=== PATIENT | female | born 1960 | race African-American/Black ===

== ENCOUNTER 2016-08-10 08:27 | Emergency (ER) | payer OTHER ==
--- NOTE | 2016-08-10 08:52 | ER Document Report ---
ED General - General Chief Complaint: Rash Stated Complaint: POSSIBLE RASH Time Seen by Provider: 08/10/16 08:43 Mode of Arrival: Ambulatory Information source: Patient Notes: 56-year-old diabetic female presents with 2 separate rashes. Patient notes that she has had a rash under her breasts and in her inguinal region of two- week duration is itchy. Patient notes now she is having generalized itchy rash as well. One under her breasts she notes is red TRAVEL OUTSIDE OF THE [place] IN LAST 30 DAYS: No - HPI Onset: Other - 2 week duration Onset/Duration: Persistent Quality of pain: No pain Severity: Mild Pain Level: Denies Associated symptoms: Other Exacerbated by: Denies Relieved by: Denies Similar symptoms previously: No Recently seen / treated by doctor: No - Related Data Allergies/Adverse Reactions: No Known Allergies Allergy (Verified 08/10/16 08:36) Past Medical History - Social History Smoking Status: Never Smoker Cigarette use (# per day): No Chew tobacco use (# tins/day): No Smoking Education Provided: No Family History: Malignancy Patient has suicidal ideation: No Patient has homicidal ideation: No - Past Medical History Cardiac Medical History: Reports: Hx Congestive Heart Failure, Hx Hypercholesterolemia, Hx Hypertension Pulmonary Medical History: Reports: Hx Asthma, Hx Bronchitis, Hx COPD, Hx Sleep Apnea Denies: Hx Tuberculosis Endocrine Medical History: Reports: Hx Diabetes Mellitus Type 2 Renal/ Medical History: Denies: Hx Peritoneal Dialysis GI Medical History: Reports: Hx Gastroesophageal Reflux Disease, Hx Irritable Bowel Psychiatric Medical History: Reports: Hx Depression Past Surgical History: Reports: Hx Hysterectomy, Hx Orthopedic Surgery - Left knee repair - Immunizations Hx Diphtheria, Pertussis, Tetanus Vaccination: No Hx Pneumococcal Vaccination: 03/28/12 Review of Systems - Review of Systems Notes: PHYSICAL EXAMINATION: GENERAL: Well-appearing, well-nourished and in no acute distress. HEAD: Atraumatic, normocephalic. EYES: Pupils equal round and reactive to light, extraocular movements intact, conjunctiva are normal. ENT: Nares patent, oropharynx clear without exudates. Moist mucous membranes. NECK: Normal range of motion, supple without lymphadenopathy LUNGS: Breath sounds clear to auscultation bilaterally and equal. No wheezes rales or rhonchi. HEART: Regular rate and rhythm without murmurs ABDOMEN: Soft, nontender, nondistended abdomen. No guarding, no rebound. No masses appreciated. Female : deferred Musculoskeletal: Normal range of motion, no pitting or edema. No cyanosis. NEUROLOGICAL: Cranial nerves grossly intact. Normal speech, normal gait. Normal sensory, motor exams PSYCH: Normal mood, normal affect. SKIN: Candidal rash under the breasts, no inguinal rash noted generalized intermittent urticaria on arms Physical Exam - Vital signs Vitals: Temp Pulse Resp BP Pulse Ox 98.5 F 97 20 107/78 97 08/10/16 08:38 08/10/16 08:38 08/10/16 08:38 08/10/16 08:38 08/10/16 08:38 Course - Re-evaluation Re-evalutation: 08/10/16 10:03 Patient will be started on Benadryl and nystatin and is otherwise well- appearing no distress given follow with primary care physician and close check on her blood sugar Patient notes blood sugar prior to arrival was 125 After performing a Medical Screening Examination, I estimate there is LOW risk for any life threatening rash. At this time the patient looks extremely well and there are no signs of systemic infection, however this may change at any time and the rash may change. I have reevaluated this patient multiple times and no significant life threatening changes are noted. The patient and I have discussed the diagnosis and risks, and we agree with discharging home with close follow-up with the understanding that symptoms and presentations can change. We also discussed returning to the Emergency Department immediately if new or worsening symptoms occur. We have discussed the symptoms which are most concerning (e.g., changing or worsening pain, fever, numbness, weakness, cool or painful digits) that necessitate immediate return. - Vital Signs Vital signs: Temp Pulse Resp BP Pulse Ox 98.5 F 97 20 107/78 97 08/10/16 08:38 08/10/16 08:38 08/10/16 08:38 08/10/16 08:38 08/10/16 08:38 Discharge - Discharge Clinical Impression: Yasemin albicans infection Diabetes Qualifiers: Diabetes mellitus type: type 1 Diabetes mellitus complication status: with unspecified complications Qualified Code(s): E10.8 - Type 1 diabetes mellitus with unspecified complications Allergic reaction Qualifiers: Encounter type: initial encounter Qualified Code(s): T78.40XA - Allergy, unspecified, initial encounter Condition: Stable Disposition: HOME, SELF-CARE Prescriptions: Diphenhydramine HCl [Benadryl 50 mg Capsule] 50 mg PO Q6 #20 capsule Nystatin 1 inch TP BID 14 Days Referrals: SHADIA LEUNG MD [Primary Care Provider] - Follow up as needed
[2016-08-10 09:00] VITALS: BP 107/78
== END 2016-08-10 09:00 | disposition home or self-care (01) ==
LOC: ER 08:27
DX: T78.40XA Allergy, unspecified, initial encounter (principal); B37.9 Candidiasis, unspecified; E10.8 Type 1 diabetes mellitus with unspecified complications; R21 Rash and other nonspecific skin eruption
CPT/HCPCS: 99282

== ENCOUNTER → 2016-09-21 | Outpatient (CLI) | payer OTHER ==
[2016-09-21 09:44] LABS: ABSOLUTE BASOPHILS # (AUTO) 0.1 10^3/uL (0.0-0.2); ABSOLUTE EOSINOPHILS # (AUTO) 0.3 10^3/uL (0.0-0.6); ABSOLUTE LYMPHOCYTES (AUTO) 2.4 10^3/uL (0.5-4.7); ABSOLUTE MONOCYTES (AUTO) 0.6 10^3/uL (0.1-1.4); ABSOLUTE NEUT (AUTO) 3.9 10^3/uL (1.7-8.2); BASOPHILS % (AUTO) 1.1 % (0-2); EOSINOPHILS % (AUTO) 3.7 % (0-6); HEMATOCRIT 31.6 % (36.0-47.0); HEMOGLOBIN 9.8 g/dL (12.0-15.5); HGB HCT DIFFERENCE -2.2; LYMPHOCYTES % (AUTO) 33.5 % (13-45); MEAN CORPUSCULAR HEMOGLOBIN 21.8 pg (27.0-33.4); MEAN CORPUSCULAR HGB CONC 30.9 g/dL (32.0-36.0); MEAN CORPUSCULAR VOLUME 71 fl (80-97); MONOCYTES % (AUTO) 7.9 % (3-13); RED BLOOD COUNT 4.47 10^6/uL (3.72-5.28); RED CELL DISTRIBUTION WIDTH 14.2 % (11.5-14.0); SEGMENTED NEUTROPHILS % (AUTO) 53.8 % (42-78); WHITE BLOOD COUNT 7.2 10^3/uL (4.0-10.5)
[2016-09-21 10:05] LABS: ALANINE AMINOTRANSFERASE 51 U/L (9-52); ALBUMIN 4.1 g/dL (3.5-5.0); ALKALINE PHOSPHATASE 68 U/L (38-126); ANION GAP 13 (5-19); ASPARTATE AMINO TRANSFERASE 65 U/L (14-36); BILIRUBIN,DIRECT 0.3 mg/dL (0.0-0.4); BILIRUBIN,TOTAL 0.5 mg/dL (0.2-1.3); BLOOD UREA NITROGEN 14 mg/dL (7-20); CALCIUM 8.9 mg/dL (8.4-10.2); CARBON DIOXIDE 25 mmol/L (22-30); CHLORIDE 103 mmol/L (98-107); CHOLESTEROL 146.48 mg/dL (0-200); CREATININE RESULT 1.13 mg/dL (0.52-1.25); Direct HDL 43 mg/dL (>40); GLUCOSE 201 mg/dL (75-110); POTASSIUM 5.4 mmol/L (3.6-5.0); SODIUM 140.5 mmol/L (137-145); TRIGLYCERIDES 217 mg/dL (<150)
[2016-09-21 10:15] LABS: DIRECT LDL 76 mg/dL (<100)
[2016-09-21 10:18] LABS: VLDL CHOLESTEROL 43.4 mg/dL (10-31)
== END ==
LOC: LAB 09:03
PROVIDERS: ATTEND Internal Medicine
DX: E11.65 Type 2 diabetes mellitus with hyperglycemia (principal); I12.9 Hypertensive chronic kidney disease with stage 1 through stage 4 chronic kidney disease, or unspecified chronic kidney disease; N18.9 Chronic kidney disease, unspecified; E78.5 Hyperlipidemia, unspecified
CPT/HCPCS: 36415; 80053; 80061; 83036; 84443; 85025

== ENCOUNTER 2016-10-25 08:09 | Emergency (ER) | payer OTHER ==
[2016-10-25] MEDS ORDERED: IPRATROPIUM/ALBUTEROL 0.5-2.5 MG/3 ML AMPUL NEB ONE ×3 (08:34→09:04)
[2016-10-25] MEDS ORDERED: METHYLPREDNISOLONE INJ 125 MG/2 ML SDV IV ONE (08:35)
--- NOTE | 2016-10-25 08:36 | ER Document Report ---
ED General - General Stated Complaint: SHORT OF BREATH Time Seen by Provider: 10/25/16 08:20 Mode of Arrival: Ambulatory Information source: Patient Notes: 56-year-old female history of asthma CHF presents with complaints of shortness of breath. Patient notes that symptoms started last night. Patient has been wheezing coughing productive. Patient noted to be febrile today. Patient was given Tylenol prior to arrival by EMS. TRAVEL OUTSIDE OF THE [place] IN LAST 30 DAYS: No - HPI Onset: Yesterday Onset/Duration: Sudden Quality of pain: Achy Severity: Mild Pain Level: 1 Associated symptoms: Productive cough, Shortness of breath Exacerbated by: Denies, Coughing Relieved by: Denies Similar symptoms previously: No Recently seen / treated by doctor: No - Related Data Allergies/Adverse Reactions: No Known Allergies Allergy (Verified 08/10/16 08:36) Past Medical History - Social History Smoking Status: Never Smoker Cigarette use (# per day): No Chew tobacco use (# tins/day): No Smoking Education Provided: No Family History: Malignancy - Past Medical History Cardiac Medical History: Reports: Hx Congestive Heart Failure, Hx Hypercholesterolemia, Hx Hypertension Pulmonary Medical History: Reports: Hx Asthma, Hx Bronchitis, Hx COPD, Hx Sleep Apnea Denies: Hx Tuberculosis Endocrine Medical History: Reports: Hx Diabetes Mellitus Type 2 Renal/ Medical History: Denies: Hx Peritoneal Dialysis GI Medical History: Reports: Hx Gastroesophageal Reflux Disease, Hx Irritable Bowel Psychiatric Medical History: Reports: Hx Depression Past Surgical History: Reports: Hx Hysterectomy, Hx Orthopedic Surgery - Left knee repair - Immunizations Hx Diphtheria, Pertussis, Tetanus Vaccination: No Hx Pneumococcal Vaccination: 03/28/12 Review of Systems - Review of Systems Notes: REVIEW OF SYSTEMS: CONSTITUTIONAL : Denies fever, chills, or sweats. Denies recent illness. EENT: Denies eye, ear, throat, or mouth pain or symptoms. Denies nasal or sinus congestion or discharge. Denies throat, tongue, or mouth swelling or difficulty swallowing. CARDIOVASCULAR: Denies chest pain. Denies palpitations or racing or irregular heart beat. Denies ankle edema. RESPIRATORY: Admits to cough shortness of breath GASTROINTESTINAL: Denies abdominal pain or distention. Denies nausea, vomiting , or diarrhea. Denies blood in vomitus, stools, or per rectum. Denies black, tarry stools. Denies constipation. GENITOURINARY: Denies difficulty urinating, painful urination, burning, frequency, blood in urine, or discharge. FEMALE GENITOURINARY: Denies vaginal bleeding, heavy or abnormal periods, irregular periods. Denies vaginal discharge or odor. MUSCULOSKELETAL: Denies back or neck pain or stiffness. Denies joint pain or swelling. SKIN: Denies rash, lesions or sores. HEMATOLOGIC : Denies easy bruising or bleeding. LYMPHATIC: Denies swollen, enlarged glands. NEUROLOGICAL: Denies confusion or altered mental status. Denies passing out or loss of consciousness. Denies dizziness or lightheadedness. Denies headache. Denies weakness or paralysis or loss of use of either side. Denies problems with gait or speech. Denies sensory loss, numbness, or tingling. Denies seizures. PSYCHIATRIC: Denies anxiety or stress. Denies depression, suicidal ideation, or homicidal ideation. ALL OTHER SYSTEMS REVIEWED AND NEGATIVE. PHYSICAL EXAMINATION: GENERAL: Well-appearing, well-nourished and in no acute distress. HEAD: Atraumatic, normocephalic. EYES: Pupils equal round and reactive to light, extraocular movements intact, conjunctiva are normal. ENT: Nares patent, oropharynx clear without exudates. Moist mucous membranes. NECK: Normal range of motion, supple without lymphadenopathy LUNGS: Breath sounds clear to auscultation bilaterally and equal. No wheezes rales or rhonchi. HEART: Coarse rhonchi wheezing all throughout ABDOMEN: Soft, nontender, nondistended abdomen. No guarding, no rebound. No masses appreciated. Female : deferred Musculoskeletal: Normal range of motion, no pitting or edema. No cyanosis. NEUROLOGICAL: Cranial nerves grossly intact. Normal speech, normal gait. Normal sensory, motor exams PSYCH: Normal mood, normal affect. SKIN: Warm, Dry, normal turgor, no rashes or lesions noted. Dictation was performed using [employer] voice recognition software Physical Exam - Vital signs Vitals: Temp Resp BP Pulse Ox 98.6 F 19 141/71 H 97 10/25/16 08:18 10/25/16 08:18 10/25/16 08:18 10/25/16 08:18 Course - Re-evaluation Re-evalutation: 10/25/16 08:37 Physical examination is concerning for pneumonia, lab work imaging is pending at this time patient has been placed on oxygen will be given duo nebs 10/25/16 10:53 Patient even though had a fever white count was tachycardic and hypoxic initially has done impressively well after 3 duo nebs. My initial impression was that patient would have to be admitted however she was ambulated around the emergency department twice and was satting 100% on her baseline 2 L in no distress. I had a long conversation with both her and and will discharge with very close follow-up After performing a Medical Screening Examination, I estimate there is LOW risk for ACUTE CORONARY SYNDROME, RESPIRATORY FAILURE, SEPSIS OR MENINGITIS, thus I consider the discharge disposition reasonable. I have reevaluated this patient multiple times and no significant life threatening changes are noted. The patient and I have discussed the diagnosis and risks, and we agree with discharging home with close follow-up. We also discussed returning to the Emergency Department immediately if new or worsening symptoms occur. We have discussed the symptoms which are most concerning (e.g., changing or worsening pain, trouble swallowing or breathing, neck stiffness, fever) that necessitate immediate return. - Vital Signs Vital signs: Temp Pulse Resp BP Pulse Ox 98.6 F 19 141/71 H 97 10/25/16 08:18 10/25/16 08:18 10/25/16 08:18 10/25/16 08:18 - Laboratory Result Diagrams: 10/25/16 08:30 10/25/16 08:30 Laboratory results interpreted by me: 10/25/16 10/25/16 08:30 08:30 WBC 14.5 H Hgb 10.0 L Hct 28.4 L MCV 71 L MCH 24.7 L Plt Count 131 L Seg Neutrophils % 79.7 H Lymphocytes % 11.0 L Absolute Neutrophils 11.6 H Sodium 135.1 L Potassium 5.4 H Chloride 96 L Est GFR (Non-Af Amer) 52 L Glucose 234 H AST 38 H Creatine Kinase 397 H - Diagnostic Test Radiology reviewed: Image reviewed, Reports reviewed - EKG Interpretation by Me EKG shows normal: Sinus rhythm, Gervais, Intervals, QRS Complexes Rate: Tachycardia Discharge - Discharge Clinical Impression: Tachycardia Fever Qualifiers: Fever type: unspecified Qualified Code(s): R50.9 - Fever, unspecified Pneumonia Qualifiers: Pneumonia type: due to unspecified organism Laterality: bilateral Lung location : unspecified part of lung Qualified Code(s): J18.9 - Pneumonia, unspecified organism Chronic obstructive lung disease Qualifiers: COPD type: unspecified COPD Qualified Code(s): J44.9 - Chronic obstructive pulmonary disease, unspecified Condition: Stable Disposition: HOME, SELF-CARE Instructions: Pneumonia ([facility]) Additional Instructions: Follow up with your physician tomorrow for further care or return to the ED IMMEDIATELY if symptoms worsen or new concerns occur. If you cannot afford to follow up with your primary care physician a list of low cost clinics have been provided at the end of your discharge papers as well. Prescriptions: Levofloxacin [Levaquin 750 mg Tablet] 750 mg PO DAILY #5 tablet Prednisone [Deltasone 20 mg Tablet] 3 tab PO DAILY 5 Days
[2016-10-25 08:52] VITALS: BP 141/71
[2016-10-25 08:53] LABS: ABSOLUTE BASOPHILS # (AUTO) 0.1 10^3/uL (0.0-0.2); ABSOLUTE EOSINOPHILS # (AUTO) 0.2 10^3/uL (0.0-0.6); ABSOLUTE LYMPHOCYTES (AUTO) 1.6 10^3/uL (0.5-4.7); ABSOLUTE NEUT (AUTO) 11.6 10^3/uL (1.7-8.2); BASOPHILS % (AUTO) 0.8 % (0-2); EOSINOPHILS % (AUTO) 1.4 % (0-6); HEMATOCRIT 28.4 % (36.0-47.0); HGB HCT DIFFERENCE 1.6; MEAN CORPUSCULAR HEMOGLOBIN 24.7 pg (27.0-33.4); MEAN CORPUSCULAR HGB CONC 35.1 g/dL (32.0-36.0); MEAN CORPUSCULAR VOLUME 71 fl (80-97); MONOCYTES % (AUTO) 7.1 % (3-13); RED BLOOD COUNT 4.02 10^6/uL (3.72-5.28); SEGMENTED NEUTROPHILS % (AUTO) 79.7 % (42-78); WHITE BLOOD COUNT 14.5 10^3/uL (4.0-10.5)
--- NOTE | 2016-10-25 08:56 | RADIOLOGY REPORT (SQ) ---
EXAM DESCRIPTION: CHEST SINGLE VIEW COMPLETED DATE/TIME: 10/25/2016 8:41 am REASON FOR STUDY: cough productuve COMPARISON: 07/03/2015 NUMBER OF VIEWS: One view. TECHNIQUE: Single frontal radiographic view of the chest acquired. LIMITATIONS: Patient body habitus. FINDINGS: LUNGS AND PLEURA: No opacities, masses or pneumothorax. No pleural effusion. MEDIASTINUM AND HILAR STRUCTURES: No masses. Contour normal. HEART AND VASCULAR STRUCTURES: Heart normal in size. Normal vasculature. BONES: No acute findings. HARDWARE: None in the chest. OTHER: No other significant finding. IMPRESSION: NO SIGNIFICANT RADIOGRAPHIC FINDING IN THE CHEST. TECHNICAL DOCUMENTATION: JOB ID: [id number]- All Rights Reserved
[2016-10-25 09:04] LABS: ALANINE AMINOTRANSFERASE 36 U/L (9-52); ALBUMIN 4.4 g/dL (3.5-5.0); ALKALINE PHOSPHATASE 79 U/L (38-126); ANION GAP 13 (5-19); ASPARTATE AMINO TRANSFERASE 38 U/L (14-36); BILIRUBIN,DIRECT 0.4 mg/dL (0.0-0.4); BILIRUBIN,TOTAL 0.5 mg/dL (0.2-1.3); BLOOD UREA NITROGEN 16 mg/dL (7-20); CALCIUM 8.9 mg/dL (8.4-10.2); CARBON DIOXIDE 26 mmol/L (22-30); CHLORIDE 96 mmol/L (98-107); CREATINE KINASE 397 U/L (30-135); CREATININE RESULT 1.09 mg/dL (0.52-1.25); GLUCOSE 234 mg/dL (75-110); POTASSIUM 5.4 mmol/L (3.6-5.0); SODIUM 135.1 mmol/L (137-145); TOTAL PROTEIN 7.4 g/dL (6.3-8.2)
[2016-10-25 09:16] LABS: CREATINE KINASE MB 1.55 ng/mL (<4.55)
[2016-10-25 09:19] LABS: TROPONIN I < 0.012 ng/mL
[2016-10-25 10:58] LABS: APPEARANCE,URINE CLEAR; BILIRUBIN,URINE NEGATIVE (NEGATIVE); GLUCOSE, URINE >=500 mg/dL (NEGATIVE); KETONES,URINE NEGATIVE (NEGATIVE); LEUKOCYTE ESTERASE,URINE NEGATIVE (NEGATIVE); NITRITE,URINE NEGATIVE (NEGATIVE); PROTEIN,URINE NEGATIVE (NEGATIVE); URINE SPECIFIC GRAVITY 1.013; UROBILINOGEN,URINE NEGATIVE mg/dL (<2.0)
--- NOTE | 2016-10-25 13:39 | EKG REPORT ---
SEVERITY:- BORDERLINE ECG - SINUS RHYTHM CONSIDER ANTERIOR INFARCT BORDERLINE T WAVE ABNORMALITIES : Confirmed by: Chaitanya Lawrence MD 25-Oct-2016 13:39:01
== END 2016-10-25 11:09 | disposition home or self-care (01) ==
LOC: ER 08:09
DX: J18.9 Pneumonia, unspecified organism (principal); R00.0 Tachycardia, unspecified; J44.9 Chronic obstructive pulmonary disease, unspecified; R50.9 Fever, unspecified; R06.02 Shortness of breath; I50.9 Heart failure, unspecified; R06.2 Wheezing; R05 Cough
CPT/HCPCS: 93005; 94640 ×2; 99285; 96374; 36415; 87040; 82553; 82550; 85025; 87077; 80053; 81001; 84484; 83880; 71010; 93010; J2930; J7620; 87186

== ENCOUNTER → 2017-07-22 | Outpatient (CLI) | payer OTHER ==
[2017-07-22 13:55] LABS: ABSOLUTE EOSINOPHILS # (AUTO) 0.1 10^3/uL (0.0-0.6); ABSOLUTE LYMPHOCYTES (AUTO) 1.6 10^3/uL (0.5-4.7); ABSOLUTE MONOCYTES (AUTO) 0.7 10^3/uL (0.1-1.4); ABSOLUTE NEUT (AUTO) 2.7 10^3/uL (1.7-8.2); BASOPHILS % (AUTO) 0.6 % (0-2); EOSINOPHILS % (AUTO) 2.3 % (0-6); HEMATOCRIT 30.2 % (36.0-47.0); HEMOGLOBIN 9.6 g/dL (12.0-15.5); LYMPHOCYTES % (AUTO) 31.7 % (13-45); MEAN CORPUSCULAR HGB CONC 31.8 g/dL (32.0-36.0); MEAN CORPUSCULAR VOLUME 69 fl (80-97); MONOCYTES % (AUTO) 12.6 % (3-13); PLATELET COUNT 167 10^3/uL (150-450); RED BLOOD COUNT 4.37 10^6/uL (3.72-5.28); RED CELL DISTRIBUTION WIDTH 14.3 % (11.5-14.0); RETICULOCYTE COUNT (AUTO) 1.82 % (0.66-2.85); SEGMENTED NEUTROPHILS % (AUTO) 52.8 % (42-78); TOTAL CELLS COUNTED % (AUTO) 100 %; WHITE BLOOD COUNT 5.2 10^3/uL (4.0-10.5)
[2017-07-22 14:07] LABS: ALANINE AMINOTRANSFERASE 44 U/L (9-52); ALBUMIN 4.3 g/dL (3.5-5.0); ALKALINE PHOSPHATASE 72 U/L (38-126); ASPARTATE AMINO TRANSFERASE 50 U/L (14-36); BILIRUBIN,DIRECT 0.3 mg/dL (0.0-0.4); BILIRUBIN,TOTAL 0.3 mg/dL (0.2-1.3); BLOOD UREA NITROGEN 16 mg/dL (7-20); CALCIUM 9.4 mg/dL (8.4-10.2); CARBON DIOXIDE 31 mmol/L (22-30); CHLORIDE 102 mmol/L (98-107); CHOLESTEROL 210.06 mg/dL (0-200); GLUCOSE 100 mg/dL (75-110); IRON(TIBC) 46.4 ug/dL (37-170); TOTAL PROTEIN 7.3 g/dL (6.3-8.2); TRIGLYCERIDES 209 mg/dL (<150)
[2017-07-22 14:08] LABS: POTASSIUM 4.5 mmol/L (3.6-5.0); VLDL CHOLESTEROL 41.8 mg/dL (10-31)
[2017-07-22 14:09] LABS: ANION GAP 11 (5-19); SODIUM 144.4 mmol/L (137-145)
[2017-07-22 14:23] LABS: DIRECT LDL 125 mg/dL (<100)
== END ==
LOC: OD 12:10
PROVIDERS: ATTEND Internal Medicine
DX: E11.9 Type 2 diabetes mellitus without complications (principal); I10 Essential (primary) hypertension; D64.9 Anemia, unspecified; R53.83 Other fatigue
CPT/HCPCS: 36415; 80053; 80061; 82607; 82728; 82746; 83036; 83540; 83550; 84443; 85025; 85045

== ENCOUNTER → 2018-03-08 | Outpatient (CLI) | payer OTHER ==
[2018-03-08 09:24] LABS: ABSOLUTE BASOPHILS # (AUTO) 0.1 10^3/uL (0.0-0.2); ABSOLUTE EOSINOPHILS # (AUTO) 0.3 10^3/uL (0.0-0.6); ABSOLUTE LYMPHOCYTES (AUTO) 2.5 10^3/uL (0.5-4.7); ABSOLUTE MONOCYTES (AUTO) 0.5 10^3/uL (0.1-1.4); ABSOLUTE NEUT (AUTO) 3.1 10^3/uL (1.7-8.2); BASOPHILS % (AUTO) 0.9 % (0-2); EOSINOPHILS % (AUTO) 4.6 % (0-6); HEMATOCRIT 30.7 % (36.0-47.0); HEMOGLOBIN 9.7 g/dL (12.0-15.5); LYMPHOCYTES % (AUTO) 38.9 % (13-45); MEAN CORPUSCULAR HEMOGLOBIN 22.5 pg (27.0-33.4); MEAN CORPUSCULAR HGB CONC 31.6 g/dL (32.0-36.0); MEAN CORPUSCULAR VOLUME 71 fl (80-97); MONOCYTES % (AUTO) 7.2 % (3-13); PLATELET COUNT 196 10^3/uL (150-450); RED BLOOD COUNT 4.31 10^6/uL (3.72-5.28); SEGMENTED NEUTROPHILS % (AUTO) 48.4 % (42-78); TOTAL CELLS COUNTED % (AUTO) 100 %; WHITE BLOOD COUNT 6.4 10^3/uL (4.0-10.5)
[2018-03-08 09:51] LABS: ALANINE AMINOTRANSFERASE 28 U/L (9-52); ALBUMIN 4.1 g/dL (3.5-5.0); ALKALINE PHOSPHATASE 77 U/L (38-126); ANION GAP 10 (5-19); ASPARTATE AMINO TRANSFERASE 36 U/L (14-36); BILIRUBIN,DIRECT 0.3 mg/dL (0.0-0.4); BILIRUBIN,TOTAL 0.3 mg/dL (0.2-1.3); BLOOD UREA NITROGEN 16 mg/dL (7-20); CALCIUM 9.4 mg/dL (8.4-10.2); CARBON DIOXIDE 33 mmol/L (22-30); CHLORIDE 99 mmol/L (98-107); CHOLESTEROL 135.04 mg/dL (0-200); GLUCOSE 152 mg/dL (75-110); SODIUM 141.7 mmol/L (137-145); TOTAL PROTEIN 7.1 g/dL (6.3-8.2); TRIGLYCERIDES 188 mg/dL (<150)
[2018-03-08 10:01] LABS: DIRECT LDL 80 mg/dL (<100)
[2018-03-08 10:07] LABS: VLDL CHOLESTEROL 37.6 mg/dL (10-31)
== END ==
LOC: LAB 08:38
PROVIDERS: ATTEND Internal Medicine
DX: E11.8 Type 2 diabetes mellitus with unspecified complications (principal); I10 Essential (primary) hypertension; E78.5 Hyperlipidemia, unspecified; R53.83 Other fatigue
CPT/HCPCS: 36415; 80053; 80061; 83735; 84443; 85025

== ENCOUNTER 2018-08-26 10:27 | Emergency (ER) | payer OTHER ==
[2018-08-26 10:36] VITALS: BP 142/54
--- NOTE | 2018-08-26 10:54 | ER Document Report ---
HPI - HPI Patient complains to provider of: rash Time Seen by Provider: 08/26/18 10:38 Pain Level: 1 Context: 58-year-old female with diabetes presents emergency department for rash x1 month. She saw her label printing machinist at the beginning of the month for a rash on her face and neck and was advised to take [id number] creams. She said that she has been itching and got to the point where she decided to seek further care. She says the rashes around her neck and kind of splotchy on her face. She denies shortness of breath, hives, tightening or constriction of her airway, or any anaphylactic type symptoms. She denies fevers or chills, she denies rash on her palms or soles. No other complaints. - CONSTITUTIONAL Constitutional: DENIES: Fever, Chills - REPRODUCTIVE Reproductive: DENIES: : Past Medical History - Social History Smoking Status: Unknown if Ever Smoked Family History: Malignancy Patient has suicidal ideation: No Patient has homicidal ideation: No - Past Medical History Cardiac Medical History: Reports: Hx Congestive Heart Failure, Hx Hypercholesterolemia, Hx Hypertension Pulmonary Medical History: Reports: Hx Asthma, Hx Bronchitis, Hx COPD, Hx Sleep Apnea Denies: Hx Tuberculosis Endocrine Medical History: Reports: Hx Diabetes Mellitus Type 2 Renal/ Medical History: Denies: Hx Peritoneal Dialysis GI Medical History: Reports: Hx Gastroesophageal Reflux Disease, Hx Irritable Bowel Psychiatric Medical History: Reports: Hx Depression Past Surgical History: Reports: Hx Hysterectomy, Hx Orthopedic Surgery - Left knee repair - Immunizations Hx Diphtheria, Pertussis, Tetanus Vaccination: No Hx Pneumococcal Vaccination: 03/28/12 Vertical Provider Document - CONSTITUTIONAL Notes: PHYSICAL EXAMINATION: Reviewed vital signs and charting by RN GENERAL: Alert, interacts well. No acute distress. HEAD: Normocephalic, atraumatic. EYES: Pupils equal, round, and reactive to light. Extraocular movements intact. ENT: Oral mucosa moist, tongue midline. NECK: Full range of motion. Supple. Trachea midline. LUNGS: Clear to auscultation bilaterally, no wheezes, rales, or rhonchi. No respiratory distress. HEART: Regular rate and rhythm. No murmur ABDOMEN: soft, non-tender. No distention. Bowel sounds present EXTREMITIES: Moves all 4 extremities spontaneously. No edema, No cyanosis. PSYCH: Normal affect, normal mood. SKIN: Warm, dry, normal turgor. Hyperpigmentation in the creases of her neck and splotchy hyperpigmentation with minimal involvement of her face. Dry skin around her mouth - INFECTION CONTROL TRAVEL OUTSIDE OF THE [place] IN LAST 30 DAYS: No Course - Re-evaluation Re-evalutation: 08/26/18 10:54 Well-appearing, rash around her neck is within the skin creases and could potentially be fungal in nature. I have given her a prescription for nystatin and for Atarax to help with the itching. She denies any concerning symptoms for anaphylaxis and her airway is patent and there is no evidence of swelling of the oropharynx. There is no involvement of the palms or soles. At this time I do not suspect anaphylaxis or meningococcemia. She has a an appointment on August 29 with her primary and has good follow-up. Stable for discharge - Vital Signs Vital signs: Temp Pulse Resp BP Pulse Ox 98.3 F 78 16 142/54 H 95 08/26/18 10:34 08/26/18 10:34 08/26/18 10:34 08/26/18 10:34 08/26/18 10:34 Discharge - Discharge Clinical Impression: Rash and nonspecific skin eruption Condition: Good Disposition: HOME, SELF-CARE Additional Instructions: You were seen in the emergency department this morning for a rash. The rash around her neck looks like it could potentially be fungal and I am giving you a prescription cream called nystatin and you can apply to it as directed on the tube. Hopefully will see improvement with that. For your itching you can take Benadryl 25 mg every 4-6 hours. I am also can give you a prescription for medication called Atarax which is similar to Benadryl but some people say works better for itching. If the Benadryl does not work you can get that filled and try that. If you start to develop acute shortness of breath, you develop hives, your airway starts to close up, you start to develop a systemic rash with fever and involvement on your palms or soles, come back for reevaluation. Referrals: SHADIA LEUNG MD [Primary Care Provider] - Follow up as needed
== END 2018-08-26 10:56 | disposition home or self-care (01) ==
LOC: ER 10:27
DX: R21 Rash and other nonspecific skin eruption (principal); I50.9 Heart failure, unspecified; E78.00 Pure hypercholesterolemia, unspecified; I11.0 Hypertensive heart disease with heart failure; E11.9 Type 2 diabetes mellitus without complications; Z90.710 Acquired absence of both cervix and uterus
CPT/HCPCS: 99282

== ENCOUNTER → 2018-12-21 | Outpatient (CLI) | payer OTHER ==
--- NOTE | 2018-12-21 17:19 | RADIOLOGY REPORT (SQ) ---
EXAM DESCRIPTION: T SPINE AP/LAT COMPLETED DATE/TIME: 12/21/2018 2:18 pm REASON FOR STUDY: BACK PAIN (M54.9) M54.9 DORSALGIA, UNSPECIFIED COMPARISON: None. NUMBER OF VIEWS: Two views. TECHNIQUE: AP and lateral radiographic images acquired of the thoracic spine. LIMITATIONS: None. FINDINGS: MINERALIZATION: Normal. ALIGNMENT: Slight scoliosis of the thoracic spine. VERTEBRAE: No fracture or bone lesion. Maintained height, normal segmentation. DISCS: No significant loss of height or significant narrowing. No large osteophytes. HARDWARE: None in the spine. MEDIASTINUM AND SOFT TISSUES: Normal heart size and aortic contour. No soft tissue abnormality. VISUALIZED LUNG JACK: Clear. OTHER: No other significant finding. IMPRESSION: 1. No acute osseous findings. TECHNICAL DOCUMENTATION: JOB ID: [id number] [employer]- All Rights Reserved Reading location - IP/workstation name: [email or web address]
== END ==
LOC: RAD 14:01
PROVIDERS: ATTEND Internal Medicine
DX: M41.84 Other forms of scoliosis, thoracic region (principal)
CPT/HCPCS: 72070

== ENCOUNTER 2018-12-23 12:11 | Emergency (ER) | payer OTHER ==
[2018-12-23] MEDS ORDERED: ASPIRIN 81 MG TABLET, CHEWABLE PO ONE (13:04)
[2018-12-23] MEDS ORDERED: FENTANYL CITRATE INJ/PF 100 MCG/2 ML AMPUL IV ONE (13:06)
--- NOTE | 2018-12-23 13:08 | ER Document Report ---
ED Medical Screen (RME) - General Chief Complaint: Back Pain Stated Complaint: TROUBLE BREATHING Time Seen by Provider: 12/23/18 12:58 Primary Care Provider: SHADIA LEUNG MD [Primary Care Provider] - Follow up as needed Mode of Arrival: Wheelchair Information source: Patient Notes: Patient presents complaining of low back pain for the past 3 months. Patient states the pain worsened over the past week and became severe today which prompted the visit. Patient states pain is to the lower back that radiates over to the right side and will radiate to the right side of abdomen. Patient denies any fever, nausea, vomiting or urinary symptoms. Patient states the pain causes her asthma to flareup and she becomes short of breath. Patient states that she does have left-sided chest pain that started since her arrival here in the department. hx: Hypertension, diabetes, asthma, IBS, hysterectomy I have greeted and performed a rapid initial assessment of this patient. A comprehensive ED assessment and evaluation of the patient, analysis of test results and completion of the medical decision making process will be conducted by additional ED providers. TRAVEL OUTSIDE OF THE [place] IN LAST 30 DAYS: No - Related Data Allergies/Adverse Reactions: amoxicillin Allergy (Verified 12/23/18 12:56) Past Medical History - Social History Family history: None - Past Medical History Cardiac Medical History: Reports: Hx Congestive Heart Failure, Hx Hypercholesterolemia, Hx Hypertension Pulmonary Medical History: Reports: Hx Asthma, Hx Bronchitis, Hx COPD, Hx Sleep Apnea Denies: Hx Tuberculosis Endocrine Medical History: Reports: Hx Diabetes Mellitus Type 2 Renal/ Medical History: Denies: Hx Peritoneal Dialysis GI Medical History: Reports: Hx Gastroesophageal Reflux Disease, Hx Irritable Bowel Psychiatric Medical History: Reports: Hx Depression Past Surgical History: Reports: Hx Hysterectomy, Hx Orthopedic Surgery - Left knee repair - Immunizations Hx Diphtheria, Pertussis, Tetanus Vaccination: No Physical Exam - Vital signs Vitals: Temp Pulse Resp BP Pulse Ox 98.2 F 97 24 H 133/77 H 98 12/23/18 12:13 12/23/18 12:13 12/23/18 12:13 12/23/18 12:13 12/23/18 12:13 - Back Back: CVA tenderness - right, Vertebra tenderness - Thoracolumbar tenderness Course - Vital Signs Vital signs: Temp Pulse Resp BP Pulse Ox 98.2 F 97 24 H 133/77 H 98 12/23/18 12:13 12/23/18 12:13 12/23/18 12:13 12/23/18 12:13 12/23/18 12:13 Doctor's Discharge - Discharge Referrals: SHADIA LEUNG MD [Primary Care Provider] - Follow up as needed
--- NOTE | 2018-12-23 13:46 | RADIOLOGY REPORT (SQ) ---
EXAM DESCRIPTION: CT ABD/PELVIS NO ORAL OR IV COMPLETED DATE/TIME: 12/23/2018 1:21 pm REASON FOR STUDY: Right flank, right side abdominal pain COMPARISON: 09/01/2014. TECHNIQUE: CT scan of the abdomen and pelvis performed without intravenous or oral contrast. Images reviewed with lung, soft tissue, and bone windows. Reconstructed coronal and sagittal MPR images revi ewed. All images stored on PACS. All CT scanners at this facility use dose modulation, iterative reconstruction, and/or weight based d osing when appropriate to reduce radiation dose to as low as reasonably achievable (ALARA). [facility]: Dose Right [facility]: CareDose [facility]: Dose Right [facility]: Teradose 4D [facility]: [employer] RADIATION DOSE: CT Rad equipment meets quality standard of care and radiation dose reduction techniq ues were employed. CTDIvol: 17.3 mGy. DLP: 845 mGy-cm.mGy. LIMITATIONS: None. FINDINGS: LOWER CHEST: No abnormality. NON-CONTRASTED LIVER, SPLEEN, ADRENALS: Liver: Fatty infiltration. Spleen: No abnormality. Adrenal s: No abnormality. PANCREAS: No abnormality. GALLBLADDER: No abnormality. RIGHT KIDNEY AND URETER: No abnormality. LEFT KIDNEY AND URETER: No abnormality. AORTA AND RETROPERITONEUM: No abnormality. . No retroperitoneal masses or adenopathy. BOWEL AND PERITONEAL CAVITY: No abnormality. APPENDIX: Normal. PELVIS, BLADDER, AND ABDOMINAL WALL:Urinary bladder: No abnormality. Uterus: Absent. BONES: Degenerative arthritis of the right hip. The possibility of developing AVN cannot be excluded in the right femoral head. IMPRESSION: Fatty infiltration the liver. Changes consistent degenerative arthritis the right hip. The possibility of developing AVN right femoral head not excluded. COMMENT: Quality ID # [id number]: Final reports with documentation of one or more dose reduction techniques (e.g., Automated exposure control, adjustment of the mA and/or kV according to patient size, use of iterative reconstruction technique) TECHNICAL DOCUMENTATION: JOB ID: [id number] [employer]- All Rights Reserved Reading location - IP/workstation name: [email or web address]
--- NOTE | 2018-12-23 13:51 | RADIOLOGY REPORT (SQ) ---
EXAM DESCRIPTION: CHEST 2 VIEWS COMPLETED DATE/TIME: 12/23/2018 1:25 pm REASON FOR STUDY: cp COMPARISON: 07/03/2015 TECHNIQUE: Frontal and lateral radiographic views of the chest acquired. NUMBER OF VIEWS: Two view. LIMITATIONS: None. FINDINGS: LUNGS AND PLEURA: No pneumothorax. No consolidation or pleural effusion. MEDIASTINUM AND HILAR STRUCTURES: Stable. HEART AND VASCULAR STRUCTURES: Stable. BONES: No acute findings. HARDWARE: None in the chest. OTHER: No other significant finding. IMPRESSION: NO ACUTE FINDINGS. TECHNICAL DOCUMENTATION: JOB ID: [id number] [email or web address]- All Rights Reserved Reading location - IP/workstation name: [email or web address]
[2018-12-23 14:13] LABS: ABSOLUTE BASOPHILS # (AUTO) 0.2 10^3/uL (0.0-0.2); ABSOLUTE EOSINOPHILS # (AUTO) 0.1 10^3/uL (0.0-0.6); ABSOLUTE LYMPHOCYTES (AUTO) 2.7 10^3/uL (0.5-4.7); ABSOLUTE MONOCYTES (AUTO) 0.6 10^3/uL (0.1-1.4); ABSOLUTE NEUT (AUTO) 4.6 10^3/uL (1.7-8.2); BASOPHILS % (AUTO) 2.4 % (0-2); EOSINOPHILS % (AUTO) 1.2 % (0-6); HEMATOCRIT 33.3 % (36.0-47.0); HEMOGLOBIN 10.7 g/dL (12.0-15.5); LYMPHOCYTES % (AUTO) 32.7 % (13-45); MEAN CORPUSCULAR HEMOGLOBIN 23.1 pg (27.0-33.4); MEAN CORPUSCULAR HGB CONC 32.2 g/dL (32.0-36.0); MEAN CORPUSCULAR VOLUME 72 fl (80-97); MONOCYTES % (AUTO) 7.6 % (3-13); PLATELET COUNT 212 10^3/uL (150-450); RED BLOOD COUNT 4.63 10^6/uL (3.72-5.28); SEGMENTED NEUTROPHILS % (AUTO) 56.1 % (42-78); TOTAL CELLS COUNTED % (AUTO) 100 %; WHITE BLOOD COUNT 8.1 10^3/uL (4.0-10.5)
[2018-12-23 14:37] LABS: ALBUMIN 4.6 g/dL (3.5-5.0); ALKALINE PHOSPHATASE 72 U/L (38-126); ANION GAP 15 (5-19); ASPARTATE AMINO TRANSFERASE 67 U/L (14-36); BILIRUBIN,DIRECT 0.1 mg/dL (0.0-0.4); BILIRUBIN,TOTAL 0.3 mg/dL (0.2-1.3); BLOOD UREA NITROGEN 24 mg/dL (7-20); CALCIUM 10.4 mg/dL (8.4-10.2); CARBON DIOXIDE 26 mmol/L (22-30); CHLORIDE 98 mmol/L (98-107); GLUCOSE 155 mg/dL (75-110); POTASSIUM 4.7 mmol/L (3.6-5.0); TOTAL PROTEIN 7.6 g/dL (6.3-8.2)
--- NOTE | 2018-12-23 15:57 | ER Document Report ---
ED General - General Chief Complaint: Back Pain Stated Complaint: TROUBLE BREATHING Time Seen by Provider: 12/23/18 12:58 Primary Care Provider: SHADIA LEUNG MD [Primary Care Provider] - Follow up as needed Mode of Arrival: Wheelchair TRAVEL OUTSIDE OF THE [place] IN LAST 30 DAYS: No - HPI Notes: Patient presents with several months of right-sided flank pain. This began several months ago when she initially fell and tripped. Since that time she has had pain in that area that is worse with movement still continues with rest but definitely worse with movement. No recent fevers or illnesses nausea vomiting diarrhea chest pain shortness of breath or abdominal pain. - Related Data Allergies/Adverse Reactions: amoxicillin Allergy (Verified 12/23/18 12:56) Past Medical History - General Information source: Patient - Social History Smoking Status: Never Smoker Family History: Malignancy Patient has suicidal ideation: No Patient has homicidal ideation: No - Past Medical History Cardiac Medical History: Reports: Hx Congestive Heart Failure, Hx Hypercholesterolemia, Hx Hypertension Pulmonary Medical History: Reports: Hx Asthma, Hx Bronchitis, Hx COPD, Hx Sleep Apnea Denies: Hx Tuberculosis Endocrine Medical History: Reports: Hx Diabetes Mellitus Type 2 Renal/ Medical History: Denies: Hx Peritoneal Dialysis GI Medical History: Reports: Hx Gastroesophageal Reflux Disease, Hx Irritable Bowel Psychiatric Medical History: Reports: Hx Depression Past Surgical History: Reports: Hx Hysterectomy, Hx Orthopedic Surgery - Left knee repair - Immunizations Hx Diphtheria, Pertussis, Tetanus Vaccination: No Hx Pneumococcal Vaccination: 03/28/12 Review of Systems - Review of Systems Constitutional: No symptoms reported EENT: No symptoms reported Cardiovascular: No symptoms reported Respiratory: No symptoms reported Gastrointestinal: No symptoms reported Genitourinary: No symptoms reported Female Genitourinary: No symptoms reported Musculoskeletal: See HPI Skin: No symptoms reported Hematologic/Lymphatic: No symptoms reported Neurological/Psychological: No symptoms reported Physical Exam - Vital signs Vitals: Temp Pulse Resp BP Pulse Ox 98.2 F 97 24 H 133/77 H 98 12/23/18 12:13 12/23/18 12:13 12/23/18 12:13 12/23/18 12:13 12/23/18 12:13 - General General appearance: Appears well, Alert - HEENT Head: Normocephalic, Atraumatic Eyes: Normal Conjunctiva: Normal Cornea: Normal Extraocular movements intact: Yes Pupils: PERRL - Respiratory Respiratory status: No respiratory distress Chest status: Nontender Breath sounds: Normal Chest palpation: Normal - Cardiovascular Rhythm: Regular Heart sounds: Normal auscultation Murmur: No - Back Back: Other - Reproducible pain with pushing of strap muscles upper lumbar paraspinal area. No: Vertebra tenderness - Extremities General upper extremity: Normal inspection, Normal ROM General lower extremity: Normal inspection, Normal ROM Course - Re-evaluation Re-evalutation: 12/23/18 15:56 No acute abnormalities found on CT of abdomen pelvis other than degenerative arthritis of right hip with possibility of developing avascular necrosis. I did discuss this with the patient and will refer them to orthopedics for further e valuation. However, her pain is not involving any part of her hip. Her pain is reproducible with palpation and started since a fall several months ago. I will provide lidocaine patches to see if this helps also discussed since her duration of symptoms that she should follow-up with her family doctor for consideration of physical therapy. She understands and agrees with plan 12/23/18 16:00 Of note, she denies any chest pain or shortness of breath at this time. Her EKG shows no concerning findings with negative troponin negative chest x-ray - Vital Signs Vital signs: Temp Pulse Resp BP Pulse Ox 98.2 F 97 24 H 133/77 H 98 12/23/18 12:13 12/23/18 12:13 12/23/18 12:13 12/23/18 12:13 12/23/18 12:13 - Laboratory Result Diagrams: 12/23/18 13:47 12/23/18 13:47 Laboratory results interpreted by me: 12/23/18 12/23/18 13:47 13:47 Hgb 10.7 L Hct 33.3 L MCV 72 L MCH 23.1 L RDW 15.0 H Baso % (Auto) 2.4 H BUN 24 H Creatinine 1.45 H Est GFR ( Amer) 45 L Est GFR (MDRD) Non-Af 37 L Glucose 155 H Calcium 10.4 H AST 67 H - Diagnostic Test Radiology reviewed: Reports reviewed - EKG Interpretation by Me EKG shows normal: Sinus rhythm Rate: Normal Rhythm: NSR Additional EKG results interpreted by me: 12/23/18 16:01 Normal intervals and axis no concerning ST depressions or elevations Discharge - Discharge Clinical Impression: Hip arthritis Lower back pain Qualifiers: Chronicity: chronic Back pain laterality: right Sciatica presence: without sciatica Qualified Code(s): M54.5 - Low back pain; G89.29 - Other chronic pain Condition: Good Disposition: HOME, SELF-CARE Instructions: Muscle Strain ([facility]), Low Back Pain ([facility]) Prescriptions: Lidocaine [Lidoderm 5% (700 mg) Transdermal Patch] 1 patch TP DAILY #10 adh..patch Referrals: SHADIA LEUNG MD [Primary Care Provider] - Follow up as needed (Follow-up in 1 week if symptoms are not improving for consideration of physical therapy per our discussion.)
[2018-12-23 16:40] VITALS: BP 105/61
--- NOTE | 2018-12-25 00:50 | EKG REPORT ---
SEVERITY:- NORMAL ECG - SINUS RHYTHM : Confirmed by: Mauro Roman 25-Dec-2018 00:49:43
== END 2018-12-23 16:16 | disposition home or self-care (01) ==
LOC: ER 12:11
DX: M54.5 Low back pain (principal); G89.29 Other chronic pain; W19.XXXA Unspecified fall, initial encounter; M16.11 Unilateral primary osteoarthritis, right hip; Z88.0 Allergy status to penicillin; I10 Essential (primary) hypertension; J44.9 Chronic obstructive pulmonary disease, unspecified; E11.9 Type 2 diabetes mellitus without complications
CPT/HCPCS: 93005; 99284; 96374; 36415; 85025; 80053; 84484; 71046; 74176; 93010; J3010

== ENCOUNTER → 2019-01-24 | Outpatient (CLI) | payer OTHER ==
[~2019-01-24] MED LIST: REGADENOSON INJ 0.4 MG/5 ML DISP.SYRIN IV ONE
--- NOTE | 2019-01-24 18:39 | DRAGON STRESS TEST REPORT ---
Intravenous Lexiscan Cardiolite stress test using single photon emmision computerized tomography. Date of procedure: 01/24/2019. Ordering Provider: Dr. Armond Wall. Patient's status Out Patient. Indication: Abnormal EKG. Coronary risk factors: Age, diabetes mellitus, hypertension, dyslipidemia, and family history of coronary artery disease. Resting EKG: Sinus Rhythm. Nonspecific ST-T changes diffuse. Stress EKG: No changes of ischemia. The patient had no chest pain or discomfort and there were no arrhythmias seen. Reason for termination: Protocol. Conclusions: Normal EKG and hemodynamic response to IV Lexiscan. Nuclear data: At rest the patient was given 14.78 millicuries of technetium 99m sestamibi injected intravenously. As per protocol rest non gated SPECT images were obtained. Subsequently the patient was given intravenous Lexiscan at a dose of 0.4 mg in 5 mL intravenously, followed by flush with normal saline. Subsequently the stress dose of 40.0 millicuries of technetium 99m sestamibi was injected intravenously. As per protocol stress gated images were obtained. Nuclear interpretation: Review of images showed that there is a very mild perfusion defect involving the anterior wall in the stress images only. This normalizes in the rest images in the anterior wall. This area has normal motion contraction and thickening by gated study. Hence this is evidence of very mild ischemia of the anterior wall. The rest of the segments of the myocardium had normal perfusion at rest, and normal perfusion post stress with IV Lexiscan. All segments of the myocardium had normal motion, contraction, and thickening by gated study. T. I D. ratio was borderline abnormal at 1.23. There is no transient ischemic dilatation of the left ventricle. Computer read rest, and stress left ventricular ejection fraction were 50 %, and 53 %, respectively. Visually both the stress and rest ejection fractions were normal, and greater than 55%. Conclusion: 1. There is scintigraphic evidence of made a very mild Lexiscan induced myocardial ischemia involving the anterior wall. 2. There is no scintigraphic evidence of myocardial infarction/scar. 3. Borderline abnormal T I D ratio. Recommendations: CORRELATE clinically. Aggressive risk factor modification, and treating the underlying co- morbidities. [facility]
== END ==
LOC: RAD 07:00
PROVIDERS: ATTEND Internal Medicine
DX: J44.9 Chronic obstructive pulmonary disease, unspecified (principal); R94.31 Abnormal electrocardiogram [ECG] [EKG]; I10 Essential (primary) hypertension; E11.9 Type 2 diabetes mellitus without complications; E78.5 Hyperlipidemia, unspecified; Z82.49 Family history of ischemic heart disease and other diseases of the circulatory system
CPT/HCPCS: 93017; 78452; A9500; J2785; Q9969

== ENCOUNTER → 2019-01-31 | Outpatient (CLI) | payer OTHER ==
--- NOTE | 2019-01-31 10:01 | RADIOLOGY REPORT (SQ) ---
EXAM DESCRIPTION: CHEST PA/LATERAL COMPLETED DATE/TIME: 01/31/2019 9:43 am REASON FOR STUDY: PRE-OP COMPARISON: 12/23/2018 EXAM PARAMETERS: NUMBER OF VIEWS: two views TECHNIQUE: Digital Frontal and Lateral radiographic views of the chest acquired. RADIATION DOSE: NA LIMITATIONS: none FINDINGS: LUNGS AND PLEURA: No opacities, masses or pneumothorax. No pleural effusion. MEDIASTINUM AND HILAR STRUCTURES: No masses or contour abnormalities. HEART AND VASCULAR STRUCTURES: Heart normal size. No evidence for failure. BONES: No acute findings. HARDWARE: None in the chest. OTHER: No other significant finding. IMPRESSION: NO SIGNIFICANT RADIOGRAPHIC FINDING IN THE CHEST. TECHNICAL DOCUMENTATION: JOB ID: [id number] [email or web address]- All Rights Reserved Reading location - IP/workstation name: [email or web address]
[2019-01-31 10:20] LABS: APPEARANCE,URINE CLEAR; BILIRUBIN,URINE NEGATIVE (NEGATIVE); COLOR,URINE COLORLESS; GLUCOSE, URINE NEGATIVE (NEGATIVE); KETONES,URINE NEGATIVE (NEGATIVE); LEUKOCYTE ESTERASE,URINE NEGATIVE (NEGATIVE); NITRITE,URINE NEGATIVE (NEGATIVE); PROTEIN,URINE NEGATIVE (NEGATIVE); URINE SPECIFIC GRAVITY 1.006; UROBILINOGEN,URINE NEGATIVE mg/dL (<2.0)
[2019-01-31 10:25] LABS: ABSOLUTE BASOPHILS # (AUTO) 0.1 10^3/uL (0.0-0.2); ABSOLUTE EOSINOPHILS # (AUTO) 0.1 10^3/uL (0.0-0.6); ABSOLUTE LYMPHOCYTES (AUTO) 2.3 10^3/uL (0.5-4.7); ABSOLUTE MONOCYTES (AUTO) 0.6 10^3/uL (0.1-1.4); ABSOLUTE NEUT (AUTO) 4.9 10^3/uL (1.7-8.2); BASOPHILS % (AUTO) 1.2 % (0-2); HEMATOCRIT 33.6 % (36.0-47.0); HEMOGLOBIN 10.6 g/dL (12.0-15.5); LYMPHOCYTES % (AUTO) 29.1 % (13-45); MEAN CORPUSCULAR HEMOGLOBIN 22.9 pg (27.0-33.4); MEAN CORPUSCULAR HGB CONC 31.6 g/dL (32.0-36.0); MEAN CORPUSCULAR VOLUME 72 fl (80-97); MONOCYTES % (AUTO) 7.6 % (3-13); PLATELET COUNT 202 10^3/uL (150-450); RED BLOOD COUNT 4.65 10^6/uL (3.72-5.28); RED CELL DISTRIBUTION WIDTH 14.7 % (11.5-14.0); SEGMENTED NEUTROPHILS % (AUTO) 61.1 % (42-78); TOTAL CELLS COUNTED % (AUTO) 100 %
[2019-01-31 10:45] LABS: ANION GAP 17 (5-19); BLOOD UREA NITROGEN 19 mg/dL (7-20); CALCIUM 9.7 mg/dL (8.4-10.2); CARBON DIOXIDE 22 mmol/L (22-30); CHLORIDE 99 mmol/L (98-107); GLUCOSE 257 mg/dL (75-110); POTASSIUM 5.3 mmol/L (3.6-5.0)
--- NOTE | 2019-01-31 23:58 | EKG REPORT ---
SEVERITY:- NORMAL ECG - SINUS RHYTHM : Confirmed by: Mauro Roman 31-Jan-2019 23:57:44
== END ==
LOC: OD 09:02
PROVIDERS: ATTEND Orthopaedic Surgery
DX: Z01.812 Encounter for preprocedural laboratory examination (principal); Z01.810 Encounter for preprocedural cardiovascular examination; Z01.811 Encounter for preprocedural respiratory examination; M16.11 Unilateral primary osteoarthritis, right hip; E11.9 Type 2 diabetes mellitus without complications; I10 Essential (primary) hypertension
CPT/HCPCS: 36415; 71046; 80048; 81001; 83036; 85025; 93005; 93010

== ENCOUNTER → 2019-02-26 | Outpatient (CLI) | payer OTHER | LOC: OD 08:26 | PROVIDERS: ATTEND Orthopaedic Surgery | DX: E11.9 Type 2 diabetes mellitus without complications (principal) | CPT/HCPCS: 36415; 83036 ==

== ENCOUNTER 2019-08-08 12:42 | Emergency (ER) | payer OTHER ==
[2019-08-08 12:47] VITALS: BP 170/77
--- NOTE | 2019-08-08 13:32 | ER Document Report ---
HPI - HPI Patient complains to provider of: skin injury Time Seen by Provider: 08/08/19 13:20 Onset: Just prior to arrival Onset/Duration: Sudden Quality of pain: No pain Pain Level: Denies Context: 59-year-old diabetic patient presents emergency department with bleeding to her right fourth and fifth toes. She reports she was clipping her toenails and cut herself. She does not take anticoagulants. She is a diabetic who does not feel any pain in her feet. She reports she just looked down and noticed she was really bleeding. Denies other symptoms such as fever vomiting diarrhea. Associated Symptoms: None Exacerbated by: Denies Relieved by: Denies Similar symptoms previously: No Recently seen / treated by doctor: No - REPRODUCTIVE Reproductive: DENIES: : - DERM Skin Color: Normal, [place] Past Medical History - General Information source: Patient - Social History Smoking Status: Never Smoker Frequency of alcohol use: None Drug Abuse: None Family History: Malignancy Patient has homicidal ideation: No - Past Medical History Cardiac Medical History: Reports: Hx Congestive Heart Failure, Hx Hypercholes terolemia, Hx Hypertension Pulmonary Medical History: Reports: Hx Asthma, Hx Bronchitis, Hx COPD, Hx Sleep Apnea Denies: Hx Tuberculosis Endocrine Medical History: Reports: Hx Diabetes Mellitus Type 2 Renal/ Medical History: Denies: Hx Peritoneal Dialysis GI Medical History: Reports: Hx Gastroesophageal Reflux Disease, Hx Irritable Bowel Psychiatric Medical History: Reports: Hx Depression Past Surgical History: Reports: Hx Hysterectomy, Hx Orthopedic Surgery - Left knee repair - Immunizations Hx Diphtheria, Pertussis, Tetanus Vaccination: No Hx Pneumococcal Vaccination: 03/28/12 Vertical Provider Document - CONSTITUTIONAL Agree With Documented VS: Yes Exam Limitations: No Limitations General Appearance: No Apparent Distress - INFECTION CONTROL TRAVEL OUTSIDE OF THE [place] IN LAST 30 DAYS: No - HEENT HEENT: Atraumatic, Normocephalic - NECK Neck: Supple - RESPIRATORY Respiratory: No Respiratory Distress - CARDIOVASCULAR Cardiovascular: Regular Rate - MUSCULOSKELETAL/EXTREMETIES Musculoskeletal/Extremeties: MAEW, FROM, Non-Tender - NEURO Level of Consciousness: Awake, Alert, Appropriate Motor/Sensory: No Motor Deficit - DERM Integumentary: Warm, Dry, Laceration - skin avulsion to the distal anterior of her right fourth toe, skin avulsion and 1/2 of nail noted to distal anterior right fifth toe. No active bleeding Course - Re-evaluation Re-evalutation: 08/08/19 13:35 wound cleaned well by [place] DIOR. Dressing and post op shoe provided. Patient was instructed on the importance of monitoring her toe keeping it clean watching for signs of infection. Patient was also given prophylactic Keflex. She reports she is taking Keflex in the past without problems. She declines pain medication. - Vital Signs Vital signs: Temp Pulse Resp BP Pulse Ox 98.4 F 98 16 170/77 H 97 08/08/19 13:00 08/08/19 12:46 08/08/19 12:46 08/08/19 12:46 08/08/19 12:46 Procedures - Immobilization Right Foot Immobilizer type: Post-op shoe Performed by: PCT Post-Proc Neuro Vasc Exam: Unchanged from pre-exam Alignment checked and good: Yes Discharge - Discharge Clinical Impression: skin avulsion of toes Condition: Stable Disposition: HOME, SELF-CARE Instructions: Cephalexin ([facility]), Post-Op Shoe ([facility]) Additional Instructions: *You have been treated for his skin avulsion to your toes *Take Keflex as prescribed *Monitor your skin for signs of infection such as pain, redness, swelling, warmth *Keep the area clean, wear the postop shoe for comfort, when outside wear shoes that will protect your toes *Follow up with Dr. Leung next week as scheduled *Return to emergency department for any signs of infection, worsening condition, concerns Prescriptions: Cephalexin Monohydrate [Keflex 250 Mg Capsule] 250 mg PO QID #20 capsule Referrals: CARMEN MENDIOLA MD [ACTIVE STAFF] - Follow up as needed SHADIA LEUNG MD [Primary Care Provider] - 08/15/19 9:00 am
== END 2019-08-08 14:05 | disposition home or self-care (01) ==
LOC: ER 12:42
DX: S91.204A Unspecified open wound of right lesser toe(s) with damage to nail, initial encounter (principal); S91.114A Laceration without foreign body of right lesser toe(s) without damage to nail, initial encounter; W45.8XXA Other foreign body or object entering through skin, initial encounter; Y93.E8 Activity, other personal hygiene; Y92.009 Unspecified place in unspecified non-institutional (private) residence as the place of occurrence of the external cause; E11.9 Type 2 diabetes mellitus without complications; I10 Essential (primary) hypertension; J44.9 Chronic obstructive pulmonary disease, unspecified
CPT/HCPCS: 99283

== ENCOUNTER 2019-09-12 15:03 | Emergency (ER) | payer OTHER ==
[2019-09-12 15:50] LABS: ABSOLUTE LYMPHOCYTES (AUTO) 2.1 10^3/uL (0.5-4.7); ABSOLUTE MONOCYTES (AUTO) 0.4 10^3/uL (0.1-1.4); ABSOLUTE NEUT (AUTO) 5.2 10^3/uL (1.7-8.2); BASOPHILS % (AUTO) 0.4 % (0-2); EOSINOPHILS % (AUTO) 0.2 % (0-6); HEMATOCRIT 36.1 % (36.0-47.0); HEMOGLOBIN 11.5 g/dL (12.0-15.5); LYMPHOCYTES % (AUTO) 26.7 % (13-45); MEAN CORPUSCULAR HGB CONC 31.8 g/dL (32.0-36.0); MEAN CORPUSCULAR VOLUME 69 fl (80-97); MONOCYTES % (AUTO) 5.4 % (3-13); PLATELET COUNT 202 10^3/uL (150-450); RED CELL DISTRIBUTION WIDTH 14.8 % (11.5-14.0); SEGMENTED NEUTROPHILS % (AUTO) 67.3 % (42-78); TOTAL CELLS COUNTED % (AUTO) 100 %; WHITE BLOOD COUNT 7.7 10^3/uL (4.0-10.5)
[2019-09-12 16:11] LABS: ALBUMIN 5.3 g/dL (3.5-5.0); ALKALINE PHOSPHATASE 88 U/L (38-126); ANION GAP 19 (5-19); ASPARTATE AMINO TRANSFERASE 63 U/L (14-36); BILIRUBIN,DIRECT 0.1 mg/dL (0.0-0.4); BILIRUBIN,TOTAL 0.6 mg/dL (0.2-1.3); BLOOD UREA NITROGEN 14 mg/dL (7-20); CALCIUM 10.2 mg/dL (8.4-10.2); CARBON DIOXIDE 22 mmol/L (22-30); CHLORIDE 94 mmol/L (98-107); GLUCOSE 261 mg/dL (75-110); TOTAL PROTEIN 8.7 g/dL (6.3-8.2)
--- NOTE | 2019-09-12 16:50 | RADIOLOGY REPORT (SQ) ---
EXAM DESCRIPTION: CHEST SINGLE VIEW IMAGES COMPLETED DATE/TIME: 09/12/2019 3:46 pm REASON FOR STUDY: shortness of breath COMPARISON: Two-view chest 01/31/2019 EXAM PARAMETERS: NUMBER OF VIEWS: One view. TECHNIQUE: Single frontal radiographic view of the chest acquired. RADIATION DOSE: NA LIMITATIONS: None. FINDINGS: LUNGS AND PLEURA: No opacities, masses or pneumothorax. No pleural effusion. MEDIASTINUM AND HILAR STRUCTURES: No masses. Contour normal. HEART AND VASCULAR STRUCTURES: Stable mild cardiomegaly BONES: No acute findings. HARDWARE: None in the chest. OTHER: No other significant finding. IMPRESSION: NO ACUTE RADIOGRAPHIC FINDING IN THE CHEST. TECHNICAL DOCUMENTATION: JOB ID: [id number] 2010 [employer]- All Rights Reserved Reading location - IP/workstation name: [email or web address]
--- NOTE | 2019-09-12 18:02 | ER Document Report ---
ED General - General Chief Complaint: Breathing Difficulty Stated Complaint: SHORTNESS OF BREATH FEVER Time Seen by Provider: 09/12/19 17:59 Primary Care Provider: SHADIA LEUNG MD [Primary Care Provider] - Follow up as needed Mode of Arrival: Ambulatory Information source: Patient TRAVEL OUTSIDE OF THE [place] IN LAST 30 DAYS: No - HPI Onset: Yesterday Onset/Duration: Gradual Quality of pain: No pain Severity: Moderate Associated symptoms: Shortness of breath, Other - Trouble Breathing, Sweating, Anxiety Exacerbated by: Other - stress, exertion Relieved by: Remaining still Similar symptoms previously: Yes - with prior asthma and COPD attacks Recently seen / treated by doctor: Yes - patient says she saw her PCP yesterday Notes: 59 year old female with a history of CHF, HTN, HLD, Asthma, COPD on home O2, ELROY, DM, GERD, IBS, Depression here in the ER for shortness of breath, trouble breathing, chills, and sweating. The patient says she saw her PCP yesterday and was diagnosed with a right ear infection. The patient says she was prescribed ear drops and antibiotics which she has been taking. The patient denies chest pain, nausea, vomiting, productive cough. - Related Data Allergies/Adverse Reactions: amoxicillin Allergy (Verified 08/08/19 13:18) Past Medical History - General Information source: Patient - Social History Smoking Status: Never Smoker Family History: Malignancy Patient has homicidal ideation: No - Past Medical History Cardiac Medical History: Reports: Hx Congestive Heart Failure, Hx Hypercholesterolemia, Hx Hypertension Pulmonary Medical History: Reports: Hx Asthma, Hx Bronchitis, Hx COPD, Hx Sleep Apnea Denies: Hx Tuberculosis Endocrine Medical History: Reports: Hx Diabetes Mellitus Type 2 Renal/ Medical History: Denies: Hx Peritoneal Dialysis GI Medical History: Reports: Hx Gastroesophageal Reflux Disease, Hx Irritable Bowel Psychiatric Medical History: Reports: Hx Depression Past Surgical History: Reports: Hx Hysterectomy, Hx Orthopedic Surgery - Left knee repair - Immunizations Hx Diphtheria, Pertussis, Tetanus Vaccination: No Hx Pneumococcal Vaccination: 03/28/12 Review of Systems - Review of Systems Constitutional: Chills, Diaphoresis EENT: No symptoms reported Cardiovascular: No symptoms reported Respiratory: Short of breath, Wheezing Gastrointestinal: No symptoms reported Genitourinary: No symptoms reported Female Genitourinary: No symptoms reported Musculoskeletal: No symptoms reported Skin: No symptoms reported Hematologic/Lymphatic: No symptoms reported Neurological/Psychological: No symptoms reported -: Yes All other systems reviewed and negative Physical Exam - Vital signs Vitals: Pulse Ox 100 09/12/19 15:03 - Notes Notes: GENERAL: Well-appearing, well-nourished and in no acute distress. HEAD: Atraumatic, normocephalic. EYES: Pupils equal round and reactive to light, extraocular movements intact, sclera anicteric, conjunctiva are normal. ENT: External Ears normal, nares patent, oropharynx clear without exudates. Moist mucous membranes. NECK: Normal range of motion, supple without lymphadenopathy or JVD. LUNGS: Breath sounds clear to auscultation bilaterally and equal. Only mild end expiratory wheezes. No rales or rhonchi. HEART: Regular rate and rhythm without murmurs, rubs or gallops. ABDOMEN: Soft, nontender, normoactive bowel sounds. No guarding, no rebound. No masses appreciated. EXTREMITIES: Normal range of motion, no pitting or edema. No clubbing or cyanosis. NEUROLOGICAL: Cranial nerves II through XII grossly intact. Normal speech, normal gait. PSYCH: Normal mood, normal affect. SKIN: Patient's forehead with diaphoresis. Otherwise her skin is warm, dry, normal turgor, no rashes or lesions noted. Course - Re-evaluation Re-evalutation: 09/13/19 03:04 The patient arrived sweating breathing rapidly but she was not hypoxic. The patient seems very anxious. A lactic acid was ordered in triage and it came back in the 6s. Patient was given fluids and this came down to the 4s. The patient's IV blew at one point so another had to be placed. Patient was given more fluids and her lactic acid eventually came down to 2.2. Patient was also given a breathing treatment for very mild wheezing. The patient could have had a mild COPD Or asthma attack coupled with a panic attack causing her to sweat and become dehydrated with an elevated lactic acid. The patient was told to follow up with her PCP and Division Engineer. The patient wanted to go home and nearly left several times AMA. Patient eventually ended up staying however for treatment of her elevated lactic acid. - Vital Signs Vital signs: Temp Pulse Resp BP Pulse Ox 98.8 F 84 19 181/92 H 99 09/13/19 02:01 09/12/19 15:04 09/13/19 02:01 09/13/19 02:01 09/12/19 20:01 - Laboratory Result Diagrams: 09/12/19 15:12 09/12/19 15:12 Laboratory results interpreted by me: 09/12/19 09/12/19 09/12/19 15:12 15:12 15:12 Hgb 11.5 L MCV 69 L MCH 22.0 L MCHC 31.8 L RDW 14.8 H Sodium 135.3 L Chloride 94 L Est GFR (MDRD) Non-Af 52 L Glucose 261 H POC Glucose Lactic Acid 6.4 H AST 63 H NT-Pro-B Natriuret Pep Total Protein 8.7 H Albumin 5.3 H Urine Protein Urine Glucose (UA) Urine Ketones Urine Blood 09/12/19 09/12/19 09/12/19 15:12 15:59 18:04 Hgb MCV MCH MCHC RDW Sodium Chloride Est GFR (MDRD) Non-Af Glucose POC Glucose 242 H Lactic Acid 4.8 H AST NT-Pro-B Natriuret Pep 520 H Total Protein Albumin Urine Protein Urine Glucose (UA) Urine Ketones Urine Blood 09/12/19 09/13/19 09/13/19 21:08 01:01 01:52 Hgb MCV MCH MCHC RDW Sodium Chloride Est GFR (MDRD) Non-Af Glucose POC Glucose Lactic Acid 4.4 H 2.2 H AST NT-Pro-B Natriuret Pep Total Protein Albumin Urine Protein 30 H Urine Glucose (UA) >=500 H Urine Ketones TRACE H Urine Blood SMALL H - Diagnostic Test Radiology reviewed: Image reviewed, Reports reviewed - EKG Interpretation by [place] EKG shows normal: Sinus rhythm, [place], Intervals, QRS Complexes Rate: Normal Rhythm: NSR Additional EKG results interpreted by me: 09/13/19 02:57 T wave inversions in V2-V6 Discharge - Discharge Clinical Impression: Lactic acid acidosis, Shortness of breath Asthma Qualifiers: Asthma severity: moderate Asthma persistence: unspecified Asthma complication type: unspecified Qualified Code(s): J45.909 - Unspecified asthma, uncomplicated Disposition: HOME, SELF-CARE Instructions: Asthma ([facility]), Chronic Obstructive Lung Disease ([facility]), Dehydration ([facility]) Additional Instructions: Drink plenty of fluids in the days to come. Use duonebs and albuterol for wheezing and shortness of breath. Follow up with your primary care doctor in the next 1-2 days to ensure resolution of symptoms. Tell your doctor you were in the ER for shortness of breath and you were found to be dehydrated with an elevated lactic acid requiring IV fluids. You had a chest xray showing no acute process. Referrals: SHADIA LEUNG MD [Primary Care Provider] - Follow up as needed
[2019-09-12] MEDS ORDERED: NORMAL SALINE 1000 ML 1,000 ML IV ONE ×4 (18:17→22:31)
--- NOTE | 2019-09-12 18:34 | EKG REPORT ---
SEVERITY:- ABNORMAL ECG - SINUS RHYTHM LEFT VENTRICULAR HYPERTROPHY : Confirmed by: Chaitanya Lawrence MD 12-Sep-2019 18:33:06
[2019-09-12 18:49] LABS: NT PRO BNP 520 pg/mL (<125)
[2019-09-12 18:52] LABS: TROPONIN I < 0.012 ng/mL
[2019-09-12] MEDS ORDERED: IPRATROPIUM/ALBUTEROL 0.5-2.5 MG/3 ML AMPUL NEB ONE (19:12)
[2019-09-13 01:55] LABS: APPEARANCE,URINE CLOUDY; BILIRUBIN,URINE NEGATIVE (NEGATIVE); COLOR,URINE YELLOW; GLUCOSE, URINE >=500 mg/dL (NEGATIVE); KETONES,URINE TRACE mg/dL (NEGATIVE); LEUKOCYTE ESTERASE,URINE NEGATIVE (NEGATIVE); NITRITE,URINE NEGATIVE (NEGATIVE); PROTEIN,URINE 30 mg/dL (NEGATIVE); URINE SPECIFIC GRAVITY 1.015; UROBILINOGEN,URINE NEGATIVE mg/dL (<2.0)
[2019-09-13 05:33] VITALS: BP 139/57
== END 2019-09-13 04:55 | disposition home or self-care (01) ==
LOC: ER 15:03
DX: J44.9 Chronic obstructive pulmonary disease, unspecified (principal); Z99.81 Dependence on supplemental oxygen; H66.91 Otitis media, unspecified, right ear; E87.2 Acidosis; F41.9 Anxiety disorder, unspecified; R06.02 Shortness of breath; R61 Generalized hyperhidrosis; R68.83 Chills (without fever); I10 Essential (primary) hypertension; E11.9 Type 2 diabetes mellitus without complications; Z88.0 Allergy status to penicillin
CPT/HCPCS: 93005; 94640; 99285; 96360; 96361; 36415; 87040; 82962; 83605; 85025; 80053; 81001; 84484; 83880; 71045; 93010; J7030; J7620

== ENCOUNTER → 2019-10-10 | Outpatient (CLI) | payer OTHER ==
[2019-10-10 11:17] LABS: ABSOLUTE EOSINOPHILS # (AUTO) 0.2 10^3/uL (0.0-0.6); ABSOLUTE LYMPHOCYTES (AUTO) 1.9 10^3/uL (0.5-4.7); ABSOLUTE MONOCYTES (AUTO) 0.7 10^3/uL (0.1-1.4); ABSOLUTE NEUT (AUTO) 5.9 10^3/uL (1.7-8.2); BASOPHILS % (AUTO) 0.5 % (0-2); EOSINOPHILS % (AUTO) 1.8 % (0-6); HEMATOCRIT 31.8 % (36.0-47.0); HEMOGLOBIN 9.9 g/dL (12.0-15.5); LYMPHOCYTES % (AUTO) 21.9 % (13-45); MEAN CORPUSCULAR HEMOGLOBIN 21.6 pg (27.0-33.4); MEAN CORPUSCULAR HGB CONC 31.1 g/dL (32.0-36.0); MEAN CORPUSCULAR VOLUME 69 fl (80-97); MONOCYTES % (AUTO) 7.6 % (3-13); PLATELET COUNT 158 10^3/uL (150-450); RED BLOOD COUNT 4.58 10^6/uL (3.72-5.28); RED CELL DISTRIBUTION WIDTH 15.5 % (11.5-14.0); SEGMENTED NEUTROPHILS % (AUTO) 68.2 % (42-78); TOTAL CELLS COUNTED % (AUTO) 100 %; WHITE BLOOD COUNT 8.7 10^3/uL (4.0-10.5)
[2019-10-10 11:47] LABS: ALBUMIN 4.4 g/dL (3.5-5.0); ALKALINE PHOSPHATASE 75 U/L (38-126); ANION GAP 11 (5-19); ASPARTATE AMINO TRANSFERASE 39 U/L (14-36); BILIRUBIN,TOTAL 0.4 mg/dL (0.2-1.3); BLOOD UREA NITROGEN 12 mg/dL (7-20); CALCIUM 9.1 mg/dL (8.4-10.2); CARBON DIOXIDE 29 mmol/L (22-30); CHLORIDE 101 mmol/L (98-107); CHOLESTEROL 163.72 mg/dL (0-200); GLUCOSE 229 mg/dL (75-110); POTASSIUM 4.6 mmol/L (3.6-5.0); TOTAL PROTEIN 7.1 g/dL (6.3-8.2); TRIGLYCERIDES 200 mg/dL (<150)
[2019-10-10 12:00] LABS: DIRECT LDL 85 mg/dL (<100)
[2019-10-11 13:38] LABS: CREATININE URINE 210.4 mg/dL (Not Estab.); MICROALBUMIN URINE 178.6 ug/mL (Not Estab.)
== END ==
LOC: OD 09:48
PROVIDERS: ATTEND Internal Medicine
DX: I12.9 Hypertensive chronic kidney disease with stage 1 through stage 4 chronic kidney disease, or unspecified chronic kidney disease (principal); N18.9 Chronic kidney disease, unspecified; E11.22 Type 2 diabetes mellitus with diabetic chronic kidney disease; E78.5 Hyperlipidemia, unspecified; R53.83 Other fatigue
CPT/HCPCS: 36415; 80053; 80061; 82043; 82570; 83036; 84443; 85025

== ENCOUNTER 2020-01-06 03:45 | Inpatient (IN) | payer MEDICARE, OTHER ==
[2020-01-06] MEDS ORDERED: IPRATROPIUM/ALBUTEROL 0.5-2.5 MG/3 ML AMPUL NEB ONE (04:02)
[2020-01-06] MEDS ORDERED: METHYLPREDNISOLONE INJ 125 MG/2 ML SDV IV ONE (04:02)
[2020-01-06] MEDS ORDERED: NORMAL SALINE 500 ML IV ONE (04:02)
--- NOTE | 2020-01-06 04:05 | ER Document Report ---
ED General - General TRAVEL OUTSIDE OF THE [place] IN LAST 30 DAYS: No <BRADLY PINEDA - Last Filed: 01/06/20 07:50> <DARIUSZ TORRES Craig - Last Filed: 01/06/20 10:43> - General Stated Complaint: DIFFICULTY BREATHING Time Seen by Provider: 01/06/20 03:52 Primary Care Provider: SHADIA LEUNG MD [Primary Care Provider] - Follow up as needed Notes: Patient is a 59-year-old female with a history of COPD on 2 L nasal cannula at all times that comes emergency department by EMS for chief complaint of shortness of breath, wheezing, cough, body aches, weakness. Patient states that she has coughed until she vomited multiple times today with brownish sputum production. She denies chest pain, abdominal pain, headache, sore throat. Patient was tested on after an exposure and was positive for COVID-19. She is a former smoker, has a history of CHF, type 2 diabetes on insulin and pills, denies history of AZ or stents, denies history of blood clots. She is not on blood thinner. She states she has been using her home nebulizer with improvement. She was noted to have a temperature of 100 F here, no recorded fevers at home. (BRADLY PINEDA) - Related Data Allergies/Adverse Reactions: amoxicillin Allergy (Verified 08/08/19 13:18) Past Medical History - General Information source: Patient - Social History Smoking Status: Former Smoker Frequency of alcohol use: None Drug Abuse: None Lives with: Family Family History: Malignancy - Past Medical History Cardiac Medical History: Reports: Hx Congestive Heart Failure, Hx Hypercholesterolemia, Hx Hypertension Pulmonary Medical History: Reports: Hx Asthma, Hx Bronchitis, Hx COPD, Hx Sleep Apnea Denies: Hx Tuberculosis Endocrine Medical History: Reports: Hx Diabetes Mellitus Type 2 Renal/ Medical History: Denies: Hx Peritoneal Dialysis GI Medical History: Reports: Hx Gastroesophageal Reflux Disease, Hx Irritable Bowel Psychiatric Medical History: Reports: Hx Depression Past Surgical History: Reports: Hx Hysterectomy, Hx Orthopedic Surgery - Left knee repair - Immunizations Hx Diphtheria, Pertussis, Tetanus Vaccination: No Hx Pneumococcal Vaccination: 03/28/12 <BRADLY PINEDA - Last Filed: 01/06/20 07:50> Review of Systems - Review of Systems Constitutional: See HPI EENT: No symptoms reported Cardiovascular: No symptoms reported Respiratory: See HPI Gastrointestinal: See HPI Genitourinary: No symptoms reported Female Genitourinary: No symptoms reported Musculoskeletal: No symptoms reported Skin: No symptoms reported Hematologic/Lymphatic: No symptoms reported Neurological/Psychological: No symptoms reported <BRADLY PINEDA - Last Filed: 01/06/20 07:50> Physical Exam <KAYLAMARSHALBRADLY - Last Filed: 01/06/20 07:50> - Vital signs Vitals: Pulse Ox 94 01/06/20 03:50 - Notes Notes: GENERAL: Patient appears uncomfortable and is slightly ill-appearing. However she is alert and cooperative HEAD: Normocephalic, atraumatic. EYES: Pupils equal, round, and reactive to light. Extraocular movements intact. ENT: Oral mucosa moist, tongue midline. Oropharynx unremarkable. Airway patent. NECK: Full range of motion. Supple. Trachea midline. No lymphadenopathy. LUNGS: Decreased breath sounds bilaterally, expiratory wheezes throughout, frequent congested cough, mild tachypnea. HEART: Regular rate and rhythm. No murmur ABDOMEN: Soft, non-tender. Non-distended. EXTREMITIES: Moves all 4 extremities spontaneously. No edema, normal radial and dorsalis pedis pulses bilaterally. No cyanosis. BACK: no cervical, thoracic, lumbar midline tenderness. No saddle anesthesia, normal distal neurovascular exam. Moves all extremities in full range of motion. NEUROLOGICAL: Alert and oriented x3. Normal speech. Cranial nerves II through XII grossly intact. Strength 5/5 in all extremities. PSYCH: Slightly restless SKIN: Warm, dry, normal turgor. No rashes or lesions noted. (BRADLY PINEDA) Course - Laboratory Result Diagrams: 01/06/20 04:15 01/06/20 05:30 <BRADLY PINEDA - Last Filed: 01/06/20 07:50> - Laboratory Result Diagrams: 01/06/20 04:15 01/06/20 05:30 - Diagnostic Test Radiology reviewed: Image reviewed, Reports reviewed <DARIUSZ TORRES - Last Filed: 01/06/20 10:43> - Re-evaluation Re-evalutation: Patient with expiratory wheezes, frequent congested cough, mild tachypnea on my initial exam. Given Solu-Medrol, duo nebs, keeping on oxygen, work-up pending. On reevaluation patient has resolution of her wheezing but she still has a frequent cough, she was given lidocaine nebulizer for relief. CBC nonspecific, chemistry nonspecific, troponin indeterminate. EKG with no acute findings except prolonged QT interval. Chest x-ray with very circular appearance of the heart, this is significantly changed from prior, possible pericardial effusion per radiology. We will perform CTA for further evaluation of difficulty breathing, COVID-19 status, possible effusion. Discussed with Dr. Michel. 01/06/20 We placed an IV but patient is very fidgety and she accidentally pulled this out on 2 separate occasions, then the third 1 infiltrated when we try to get the CTA. Patient is requesting for something to calm down, she will be given 0.5 mg of Ativan and we will attempt to perform the CTA again. 01/06/20 08:00 Report given to Key Torres PA-C pending final results and disposition. (BRADLY PINEDA) 01/06/20 08:09 Assumed care of the patient from GEETHA Pineda. Pending CTA of the chest. Overal patient has reassuring lab work. She received a neb here in the ER and then a nebulized lidocaine neb which has helped her cough. She has COVID. Noted BNP, not the highest she has been -- does have a history of CHF. 01/06/20 10:40 1 on the patient after CTA. No PE but groundglass opacities with pleural effusions. Concerned that her BNP is up. She is also tachypneic. She seems to be working a little bit more in the room. She usually is on 2 L of oxygen normally and is requiring 4 at this time. I discussed further with Dr. Michel about her. I am concerned that she is not going to do well outpatient and that she should be admitted for COVID and dyspnea. He went and rounded on the patient and he agrees that she is also very tachypneic -respiratory rate of 26 a nd working a little bit harder to breathe. We will order an arterial blood gas and discuss further with the hospitalist team. Spoke with Dr. Roland. She agrees with the plan for admission and asked me to call Dr. Moreira to discuss. Spoke with Dr. Moreira, hospitalist. He agrees with the plan for admission. He will come and see the patient shortly. Impression: COVID-19 with dyspnea and elevated BNP. Concerning that she is going to do poorly. She is requiring more oxygen than she normally does. She will be admitted to the hospitalist team for further evaluation and management. Patient is aware of the plan and agrees. (DARIUSZ TORRES) - Vital Signs Vital signs: Temp Pulse Resp BP Pulse Ox 98.9 F 22 H 121/72 100 01/06/20 09:26 01/06/20 09:01 01/06/20 09:01 01/06/20 09:01 - Laboratory Laboratory results interpreted by me: 01/06/20 01/06/20 01/06/20 04:15 04:15 05:30 Hgb 9.0 L Hct 27.9 L MCV 69 L MCH 22.2 L RDW 16.5 H VBG pH 7.57 H VBG pCO2 30.9 L Sodium 136.9 L Chloride 97 L Est GFR (MDRD) Non-Af 57 L Glucose 138 H AST 97 H ALT 55 H NT-Pro-B Natriuret Pep 01/06/20 05:30 Hgb Hct MCV MCH RDW VBG pH VBG pCO2 Sodium Chloride Est GFR (MDRD) Non-Af Glucose AST ALT NT-Pro-B Natriuret Pep 2740 H - EKG Interpretation by Me Additional EKG results interpreted by me: EKG shows sinus rhythm at a rate of 79, left ventricular hypertrophy, QTC prolonged at 514, no T wave inversions or ST segment changes in consecutive leads. (BRADYL PINEDA) Discharge <BRADLY PINEDA - Last Filed: 01/06/20 07:50> - Discharge Admitting Provider: Ana (Hospitalist) <DARIUSZ TORRES - Last Filed: 01/06/20 10:43> - Discharge Clinical Impression: COVID-19, Shortness of breath, Elevated brain natriuretic peptide (BNP) level, History of CHF (congestive heart failure), History of COPD Condition: Stable Disposition: ADMITTED INPATIENT Referrals: SHADIA LEUNG MD [Primary Care Provider] - Follow up as needed
[2020-01-06 04:35] LABS: ABSOLUTE LYMPHOCYTES (AUTO) 1.1 10^3/uL (0.5-4.7); ABSOLUTE MONOCYTES (AUTO) 0.4 10^3/uL (0.1-1.4); ABSOLUTE NEUT (AUTO) 3.7 10^3/uL (1.7-8.2); BASOPHILS % (AUTO) 0.9 % (0-2); EOSINOPHILS % (AUTO) 0.7 % (0-6); HEMATOCRIT 27.9 % (36.0-47.0); LYMPHOCYTES % (AUTO) 21.1 % (13-45); MEAN CORPUSCULAR HEMOGLOBIN 22.2 pg (27.0-33.4); MEAN CORPUSCULAR HGB CONC 32.2 g/dL (32.0-36.0); MEAN CORPUSCULAR VOLUME 69 fl (80-97); MONOCYTES % (AUTO) 7.9 % (3-13); PLATELET COUNT 243 10^3/uL (150-450); RED BLOOD COUNT 4.03 10^6/uL (3.72-5.28); RED CELL DISTRIBUTION WIDTH 16.5 % (11.5-14.0); SEGMENTED NEUTROPHILS % (AUTO) 69.4 % (42-78); TOTAL CELLS COUNTED % (AUTO) 100 %; WHITE BLOOD COUNT 5.3 10^3/uL (4.0-10.5)
[2020-01-06 04:37] LABS: VENOUS BLOOD BASE EXCESS 5.8 mmol/L; VENOUS BLOOD HCO3 27.4 mmol/L (20-32); VENOUS BLOOD PCO2 30.9 mmHg (35-63); VENOUS BLOOD PH 7.57 (7.30-7.42)
--- NOTE | 2020-01-06 05:32 | RADIOLOGY REPORT (SQ) ---
COMPLETED DATE/TME: 01/06/2020 03:56 EXAM: Single view chest. INDICATION: Shortness of breath. COMPARISON: Chest x-ray: 09/12/2019. FINDINGS: Cardiac silhouette: Cardiomegaly with a more rounded appearance compared to the prior Rachael: Unremarkable. Lobar consolidation: None. Pleural effusion: None. Pneumothorax: None. Other: None. Bones: Unremarkable. Other: None. IMPRESSION: Cardiomegaly with a more rounded appearance of the heart. A pericardial effusion may be present.
[2020-01-06 06:00] LABS: ALKALINE PHOSPHATASE 83 U/L (38-126); ANION GAP 15 (5-19); ASPARTATE AMINO TRANSFERASE 97 U/L (14-36); BILIRUBIN,DIRECT 0.4 mg/dL (0.0-0.4); BILIRUBIN,TOTAL 0.8 mg/dL (0.2-1.3); BLOOD UREA NITROGEN 11 mg/dL (7-20); CARBON DIOXIDE 25 mmol/L (22-30); CHLORIDE 97 mmol/L (98-107); GLUCOSE 138 mg/dL (75-110); POTASSIUM 3.7 mmol/L (3.6-5.0); TOTAL PROTEIN 7.2 g/dL (6.3-8.2)
[2020-01-06] MEDS ORDERED: LIDOCAINE 1% INJ-PF (10 MG/ML) 30 ML SDV NEB ONE (06:04)
[2020-01-06] MEDS ORDERED: ACETAMINOPHEN 325 MG TABLET PO ONE (06:08)
[2020-01-06] MEDS ORDERED: LORAZEPAM INJ 2 MG/1 ML VIAL IV ONE (07:48)
--- NOTE | 2020-01-06 09:10 | EKG REPORT ---
SEVERITY:- ABNORMAL ECG - SINUS RHYTHM LEFT VENTRICULAR HYPERTROPHY PROLONGED QT INTERVAL : Confirmed by: Hilda Leyva MD 06-Jan-2020 09:09:43
--- NOTE | 2020-01-06 10:21 | RADIOLOGY REPORT (SQ) ---
EXAM DESCRIPTION: CTA CHEST IMAGES COMPLETED DATE/TIME: 01/06/2020 9:53 am REASON FOR STUDY: +COVID 19, increased shortness of breath COMPARISON: None. TECHNIQUE: CT scan of the chest performed using helical scanning technique with dynamic intravenous contrast injection. Images reviewed with lung, soft tissue and bone windows. Reconstructed coronal and sagittal MPR images reviewed. Additional 3 dimensional post-processing performed to develop Maximal Intensity Projection images (AZ P). All images stored on PACS. All CT scanners at this facility use dose modulation, iterative reconstruction, and/or weight based d osing when appropriate to reduce radiation dose to as low as reasonably achievable (ALARA). [facility]: Dose Right [facility]: CareDose [facility]: Dose Right [facility]: Teradose 4D [facility]: [employer] CONTRAST TYPE AND DOSE: contrast/concentration: Isovue 350.00 mmol/ml; Total Contrast Delivered: 65. 0 ml; Total Saline Delivered: 80.0 ml RENAL FUNCTION: GFR > 60. RADIATION DOSE: CT Rad equipment meets quality standard of care and radiation dose reduction techniq ues were employed. CTDIvol: 19.4 - 19.8 mGy. DLP: 677 mGy-cm. . LIMITATIONS: None. FINDINGS: LUNGS AND PLEURA: Diffuse patchy areas of ground-glass attenuation in both lungs. No infi ltrate. Trace pleural effusions. AORTA AND GREAT VESSELS: No aneurysm. No dissection. HEART: No pericardial effusion. Cardiomegaly. PULMONARY ARTERIES: No emboli visualized in the main pulmonary arteries or the segmental branches. HILAR AND MEDIASTINAL STRUCTURES: No identified masses or abnormal nodes. HARDWARE: None in the chest. UPPER ABDOMEN: No significant findings. Limited exam. THYROID AND OTHER SOFT TISSUES: No masses. No adenopathy. BONES: No acute or significant finding. 3D MIPS: Confirm above findings. OTHER: No other significant finding. IMPRESSION: 1. No PE. 2. Diffuse patchy ground-glass attenuation which is nonspecific. Pneumonia versus edema. Clinical c orrelation is needed. COMMENT: Quality ID # [id number]: Final reports with documentation of one or more dose reduction techniques (e.g., Automated exposure control, adjustment of the mA and/or kV according to patient size, use of iterative reconstruction technique) TECHNICAL DOCUMENTATION: JOB ID: [id number] [employer]- All Rights Reserved Reading location - IP/workstation name: [email or web address]
[2020-01-06] MEDS ORDERED: FUROSEMIDE INJ/PF 40 MG/4 ML SDV IV ONE (11:00)
[2020-01-06] MEDS ORDERED: ACETAMINOPHEN 325 MG TABLET PO PRN (11:21)
[2020-01-06] MEDS ORDERED: ONDANSETRON HCL INJ/PF 4 MG/2 ML SDV IV PRN (11:22)
[2020-01-06] MEDS ORDERED: PHARMACY COMMUNICATION ORDER MC NR (11:30)
[2020-01-06] MEDS ORDERED: DEXTROSE 50%-WATER 25 GM/50 ML DISP.SYRIN IV PRN ×2 (11:38)
[2020-01-06] MEDS ORDERED: DEXTROSE 40% GEL 15 GM TUBE PO PRN ×2 (11:38)
[2020-01-06] MEDS ORDERED: GLUCAGON,HUMAN RECOMB 1 MG INJ IM PRN (11:38)
--- NOTE | 2020-01-06 11:47 | PDOC H&P ---
History of Present Illness Admission Date/PCP: 01/06/20 11:33 SHADIA LEUNG MD Patient complains of: Came to the emergency room with complaints of shortness of breath of 1 day duration History of Present Illness: CAMILLE MORALES is a 59 year old female with history of congestive heart failure, COPD on 2 L oxygen, hypertension, diabetes mellitus, ex-smoker came to the emergency room with complaints of shortness of breath for the last 24 hours. She was tested positive for COVID-19 on Tuesday last week. Complaining of fever at home. Complaining of dry cough. Denies any nausea vomiting diarrhea or abdominal pain. Complaining of increased sweating and chills. Past Medical History Cardiac Medical History: Reports: Congestive Heart Failure, Hyperlipidema, Hypertension Pulmonary Medical History: Reports: Asthma, Bronchitis, Chronic Obstructive Pulmonary Disease (COPD), Sleep Apnea Denies: Tuberculosis Endocrine Medical History: Reports: Diabetes Mellitus Type 2 GI Medical History: Reports: Gastroesophageal Reflux Disease Psychiatric Medical History: Reports: Depression Hematology: Reports: Anemia Past Surgical History Past Surgical History: Reports: Hysterectomy, Orthopedic Surgery - Left knee repair Social History Information Source: Patient Lives with: Family Smoking Status: Former Smoker Electronic Cigarette use?: No Frequency of Alcohol Use: None Hx Recreational Drug Use: No Hx Prescription Drug Abuse: No - Advance Directive Resuscitation Status: Full Code Family History Family History: Malignancy Parental Family History Reviewed: Yes Children Family History Reviewed: Yes Sibling(s) Family History Reviewed.: Yes Medication/Allergy Home Medications: Albuterol Sulfate [Proair HFA] 1 - 2 puff IH QID PRN 06/06/15 Alprazolam 1 mg PO TID PRN 06/06/15 Cetirizine HCl [Allergy] 10 mg PO DAILY 06/06/15 Esomeprazole Magnesium [Nexium] 40 mg PO BID 06/06/15 Fluticasone Propionate [Flonase Nasal [place] 50 Mcg/[place] 16 gm] 1 spray NASL DAILY 06/06/15 Fluticasone/Salmeterol [Advair 500-50 Diskus 14 Dose/Diskus] 1 inh IH BID 06/06/15 Furosemide [Lasix 40 mg Tablet] 40 mg PO QAM 06/06/15 Glimepiride [Amaryl 4 mg Tablet] 4 mg PO DAILY 06/06/15 Guaifenesin [Mucinex] 600 mg PO Q12H PRN 06/06/15 Hydroxyzine HCl [Atarax 25 mg Tablet] 25 mg PO Q6H PRN 06/06/15 Ipratropium/Albuterol Sulfate [Duoneb 3 ml Ampul] 3 ml NEB RTQID 06/06/15 Lisinopril 20 mg PO DAILY 06/06/15 Mag Hydrox/Aluminum Hyd/Simeth [Maalox Maximum Strength Susp] 15 ml PO QID PRN 06/06/15 Metformin HCl [Glucophage 500 mg Tablet] 1,000 mg PO BID 06/06/15 Oxycodone HCl 5 mg PO BID 06/06/15 Polyethylene Glycol 3350 [Miralax Powder 17 gm/Packet] 1 packet PO DAILY Potassium Chloride 20 meq PO DAILY 06/06/15 Pregabalin [Lyrica] 150 mg PO BID 06/06/15 Raloxifene HCl [Evista 60 mg Tablet] 60 mg PO DAILY 06/06/15 Simvastatin 20 mg PO QPM 06/06/15 Tramadol HCl 100 mg PO TID 06/06/15 Travoprost (Benzalkonium) [Travatan 0.004% Eye Drop] 1 drop OU QHS 06/06/15 Venlafaxine HCl [Venlafaxine HCl ER] 150 mg PO DAILY 06/06/15 Levofloxacin 500 mg/D5w RTU [Levaquin RTU 500Mg/D5w 100 ml Premix] 100 ml IV DAILY@1500 #0 rtupb 06/07/15 Diphenhydramine HCl [Benadryl 50 mg Capsule] 50 mg PO Q6 #20 capsule 08/10/16 Nystatin 1 inch TP BID 14 Days cream..g. 08/10/16 Levofloxacin [Levaquin 750 mg Tablet] 750 mg PO DAILY #5 tablet 10/25/16 Prednisone [Deltasone 20 mg Tablet] 3 tab PO DAILY 5 Days tablet 10/25/16 Hydroxyzine HCl [Atarax 10 mg Tablet] 10 mg PO TID PRN #30 tablet 08/26/18 Nystatin [Mycostatin Cream 15 gm] 1 applic TP BID #15 gm 08/26/18 Lidocaine [Lidoderm 5% (700 mg) Transdermal Patch] 1 patch TP DAILY #10 adh..patch 12/23/18 Cephalexin Monohydrate [Keflex 250 Mg Capsule] 250 mg PO QID #20 capsule 08/08/19 Allergies/Adverse Reactions: amoxicillin Allergy (Verified 08/08/19 13:18) Review of Systems Constitutional: PRESENT: chills, fatigue, fever(s), weakness. ABSENT: headache(s) Eyes: ABSENT: visual disturbances Nose, Mouth, and Throat: ABSENT: sore throat Cardiovascular: ABSENT: orthropnea, palpitations Respiratory: PRESENT: dyspnea Gastrointestinal: ABSENT: constipation, diarrhea, heartburn, hematemesis, hematochezia Genitourinary: ABSENT: dysuria, hematuria Neurological: ABSENT: confusion, convulsions, focal weakness, numbness Psychiatric: ABSENT: anxiety, depression Physical Exam Vital Signs: Temp Pulse Resp BP Pulse Ox 98.9 F 27 H 133/76 H 100 01/06/20 09:26 01/06/20 10:05 01/06/20 10:05 01/06/20 10:05 Intake & Output 01/05/20 01/06/20 01/07/20 06:59 06:59 06:59 Intake Total 500 Balance 500 Weight 84.822 kg General appearance: PRESENT: cooperative, mild distress, obese Head exam: PRESENT: atraumatic Eye exam: PRESENT: conjunctiva pale, PERRLA Mouth exam: PRESENT: moist, tongue midline Teeth exam: PRESENT: poor dentation Neck exam: ABSENT: carotid bruit, JVD, lymphadenopathy, thyromegaly Respiratory exam: PRESENT: tachypnea Cardiovascular exam: PRESENT: tachycardia GI/Abdominal exam: PRESENT: normal bowel sounds, soft. ABSENT: distended, guarding, mass, organolmegaly, rebound, tenderness Rectal exam: PRESENT: deferred Extremities exam: PRESENT: full ROM. ABSENT: calf tenderness, clubbing, pedal edema Neurological exam: PRESENT: alert, awake, oriented to person, oriented to place, oriented to time, oriented to situation, CN II-XII grossly intact. ABSENT: motor sensory deficit Psychiatric exam: PRESENT: appropriate affect, normal mood. ABSENT: homicidal ideation, suicidal ideation Skin exam: PRESENT: dry, intact, warm. ABSENT: cyanosis, rash Results Laboratory Results: 01/06/20 04:15 01/06/20 05:30 01/06/20 01/06/20 01/06/20 04:15 04:15 04:15 WBC 5.3 RBC 4.03 Hgb 9.0 L Hct 27.9 L MCV 69 L MCH 22.2 L MCHC 32.2 RDW 16.5 H Plt Count 243 Seg Neutrophils % 69.4 VBG pH VBG pCO2 VBG HCO3 VBG Base Excess Sodium Cancelled Potassium Cancelled Chloride Cancelled Carbon Dioxide Cancelled Anion Gap Cancelled BUN Cancelled Creatinine Cancelled Est GFR ( Amer) Cancelled Est GFR (Non-Af Amer) Cancelled Glucose Cancelled Lactic Acid 1.6 Calcium Cancelled Total Bilirubin Cancelled AST Cancelled Alkaline Phosphatase Cancelled Total Protein Cancelled Albumin Cancelled 01/06/20 01/06/20 04:15 05:30 WBC RBC Hgb Hct MCV MCH MCHC RDW Plt Count Seg Neutrophils % VBG pH 7.57 H VBG pCO2 30.9 L VBG HCO3 27.4 VBG Base Excess 5.8 Sodium 136.9 L Potassium 3.7 Chloride 97 L Carbon Dioxide 25 Anion Gap 15 BUN 11 Creatinine 1.00 Est GFR ( Amer) > 60 Est GFR (Non-Af Amer) Glucose 138 H Lactic Acid Calcium 9.0 Total Bilirubin 0.8 AST 97 H Alkaline Phosphatase 83 Total Protein 7.2 Albumin 4.0 01/06/20 01/06/20 01/06/20 04:15 05:30 05:30 Troponin I Cancelled 0.029 NT-Pro-B Natriuret Pep 2740 H Impressions: Chest X-Ray 01/06/20 03:56 IMPRESSION: Cardiomegaly with a more rounded appearance of the heart. A pericardial effusion may be present. Chest/Abdomen CTA 01/06/20 06:04 IMPRESSION: 1. No PE. 2. Diffuse patchy ground-glass attenuation which is nonspecific. Pneumonia versus edema. Clinical correlation is needed. Assessment and Plan - Diagnosis (1) COVID-19 Is this a current diagnosis for this admission?: Yes Plan: 01/06/20-patient is going to be admitted to [facility] as inpatient with a diagnosis of COVID-19 pneumonia. Started on dexamethasone, remedies aware, convulsant plasma as per protocol. Provide supplemental oxygenation. GI prophylaxis DVT prophylaxis initiated. CRP, LDH, d-dimer, ESR will be requested. Started on ascorbic acid, aspirin, zinc, heparin for DVT prophylaxis. Patient is a full code at this time. (2) History of CHF (congestive heart failure) Is this a current diagnosis for this admission?: No Plan: 01/06/2020-patient has history of CHF. Stress test last year indicates EF is around 55%. Because of the COVID positive status echocardiogram will be on hold. Not in fluid overload at the time of my examination. CT scan suggestive of pneumonia versus pulmonary edema. (3) History of COPD Is this a current diagnosis for this admission?: No Plan: 01/06/2020-patient has history of COPD on 2 L of oxygen at home. Here in the emergency room she is requiring 4 L of oxygen. ABG is pending. (4) HTN (hypertension) Is this a current diagnosis for this admission?: No Plan: 01/06/2020-patient has history of chronic essential hypertension. On Lasix at home. Plan is to resume the Lasix during the hospital stay. Not in fluid overload at the time of my examination. (5) Diabetes Is this a current diagnosis for this admission?: No Plan: 01/06/2020-patient has history of type 2 diabetes on metformin and glipizide at home. To hold metformin at this time started on insulin sliding scale before meals and at bedtime. Diet exercise weight loss lifestyle modifications discussed with the patient. (6) Obesity (BMI 30.0-34.9) Is this a current diagnosis for this admission?: No Plan: 01/06/2020-patient BMI is more than 33. Diet exercise weight loss lifestyle modifications discussed with the patient. - Time Anticipated Discharge Disposition: Home, Self Care Anticipated Discharge Timeframe: within 72 hours
[2020-01-06 11:53] LABS: ARTERIAL BLOOD BASE EXCESS 3.2 mmol/L; ARTERIAL BLOOD H2CO3 1.32 mmol/L (1.05-1.35); ARTERIAL BLOOD O2 SATURATION 98.5 % (94-98); ARTERIAL BLOOD PCO2 43.8 mmHg (35-45); ARTERIAL BLOOD PH 7.42 (7.35-7.45); ARTERIAL BLOOD PO2 125.2 mmHg (80-100); ARTERIAL BLOOD TOTAL CO2 29.3 mmol/L (21-25)
[2020-01-06 11:55] LABS: ARTERIAL BLOOD FIO2 3L
[2020-01-06] MEDS ORDERED: AZITHROMYCIN 250 MG TABLET PO ONE (12:00)
[2020-01-06 12:51] LABS: APPEARANCE,URINE SLIGHTLY-CLOUDY; BILIRUBIN,URINE NEGATIVE (NEGATIVE); COLOR,URINE YELLOW; GLUCOSE, URINE 50 mg/dL (NEGATIVE); KETONES,URINE NEGATIVE (NEGATIVE); LEUKOCYTE ESTERASE,URINE NEGATIVE (NEGATIVE); NITRITE,URINE NEGATIVE (NEGATIVE); PROTEIN,URINE 100 mg/dL (NEGATIVE); UROBILINOGEN,URINE NEGATIVE mg/dL (<2.0)
[2020-01-06 12:59] LABS: C-REACTIVE PROTEIN 27.7 mg/L (<10.0)
[2020-01-06 13:09] LABS: URINE AMPHETAMINES SCREEN NEGATIVE; URINE BARBITURATES SCREEN NEGATIVE; URINE BENZODIAZEPINES SCREEN NEGATIVE; URINE COCAINE SCREEN NEGATIVE; URINE MARIJUANA (THC) SCREEN NEGATIVE; URINE METHADONE SCREEN NEGATIVE; URINE PHENCYCLIDINE SCREEN NEGATIVE
[2020-01-06 13:25] LABS: A TYPE INFLUENZA AG NEGATIVE (NEGATIVE); B INFLUENZA AG NEGATIVE (NEGATIVE)
[2020-01-06] MEDS ORDERED: REMDESIVIR (EUA) 200 MG in NORMAL SALINE 250 ML IV ONE (16:00)
[2020-01-06] MEDS: INSULIN REG, HUMAN 100 UNIT/ML 3 ML VIAL (PYX) SUBCUT SCH ×2 (18:36→22:44)
[2020-01-06] MEDS: ASCORBIC ACID 500 MG TABLET PO SCH (18:36)
[2020-01-06] MEDS: CEFTRIAXONE 2 GM/D5W RTU 2 GM/50 ML RTUPB IV SCH (18:37)
[2020-01-06] MEDS: PANTOPRAZOLE SODIUM 40 MG TABLET.DR PO SCH (18:37)
[2020-01-07 06:25] LABS: ABSOLUTE LYMPHOCYTES (AUTO) 1.5 10^3/uL (0.5-4.7); ABSOLUTE MONOCYTES (AUTO) 0.9 10^3/uL (0.1-1.4); ABSOLUTE NEUT (AUTO) 2.6 10^3/uL (1.7-8.2); BASOPHILS % (AUTO) 0.7 % (0-2); EOSINOPHILS % (AUTO) 0.4 % (0-6); HEMATOCRIT 31.1 % (36.0-47.0); HEMOGLOBIN 9.7 g/dL (12.0-15.5); LYMPHOCYTES % (AUTO) 29.8 % (13-45); MEAN CORPUSCULAR HEMOGLOBIN 21.6 pg (27.0-33.4); MEAN CORPUSCULAR VOLUME 70 fl (80-97); MONOCYTES % (AUTO) 17.7 % (3-13); PLATELET COUNT 298 10^3/uL (150-450); RED BLOOD COUNT 4.47 10^6/uL (3.72-5.28); RED CELL DISTRIBUTION WIDTH 16.7 % (11.5-14.0); SEGMENTED NEUTROPHILS % (AUTO) 51.4 % (42-78); TOTAL CELLS COUNTED % (AUTO) 100 %
[2020-01-07 06:31] LABS: ALBUMIN 3.7 g/dL (3.5-5.0); ALKALINE PHOSPHATASE 69 U/L (38-126); ANION GAP 10 (5-19); ASPARTATE AMINO TRANSFERASE 67 U/L (14-36); BILIRUBIN,DIRECT 0.4 mg/dL (0.0-0.4); BILIRUBIN,TOTAL 0.7 mg/dL (0.2-1.3); BLOOD UREA NITROGEN 21 mg/dL (7-20); CALCIUM 8.7 mg/dL (8.4-10.2); CARBON DIOXIDE 31 mmol/L (22-30); CHLORIDE 100 mmol/L (98-107); CREATINE KINASE 473 U/L (30-135); GLUCOSE 129 mg/dL (75-110); POTASSIUM 4.4 mmol/L (3.6-5.0); TOTAL PROTEIN 6.7 g/dL (6.3-8.2)
[2020-01-07 07:41] LABS: INTERNATIONAL RATION (INR) 1.09; PROTHROMBIN TIME 14.3 SEC (11.4-15.4)
[2020-01-07] MEDS ORDERED: (PENDING PHARMACY ID) (Hydroxyzine Hcl [Atarax 25 Mg Tablet] 25 MG) PO PRN (07:55)
--- NOTE | 2020-01-07 08:34 | PDOC PROGRESS REPORT ---
Subjective Progress Note for:: 01/07/20 Subjective:: 59 year old female with history of congestive heart failure, COPD on 2 L oxygen, hypertension, diabetes mellitus, ex-smoker came to the emergency room with complaints of shortness of breath for the last 24 hours. She was tested positive for COVID-19 on Tuesday last week. Complaining of fever at home. Complaining of dry cough. Denies any nausea vomiting diarrhea or abdominal pain. Complaining of increased sweating and chills. 01/07/20-no acute events in the last 24 hours. Afebrile. Pulse ox is 99% on 2 L. Patient has history of COPD on 2 L of oxygen at home. Patient was started on dexamethasone, remedesvir, convulsant plasma. COVID swab was done yesterday. Pending results. Reason For Visit: COVID19 Physical Exam Vital Signs: Temp Pulse Resp BP Pulse Ox 98.7 F 76 21 H 112/67 99 01/07/20 06:28 01/07/20 06:28 01/07/20 06:28 01/07/20 06:28 01/07/20 06:28 Intake & Output 01/06/20 01/07/20 01/08/20 06:59 06:59 06:59 Intake Total 500 501 Balance 500 501 Weight 84.822 kg 82.3 kg General appearance: PRESENT: no acute distress, obese Head exam: PRESENT: atraumatic Eye exam: PRESENT: conjunctiva pale, PERRLA Ear exam: PRESENT: normal external ear exam Mouth exam: PRESENT: neck supple Neck exam: ABSENT: carotid bruit, JVD, lymphadenopathy, thyromegaly Respiratory exam: PRESENT: decreased breath sounds Cardiovascular exam: PRESENT: RRR. ABSENT: diastolic murmur, rubs, systolic murmur GI/Abdominal exam: PRESENT: normal bowel sounds, soft. ABSENT: distended, guarding, mass, organolmegaly, rebound, tenderness Rectal exam: PRESENT: deferred Extremities exam: PRESENT: full ROM. ABSENT: calf tenderness, clubbing, pedal edema Neurological exam: PRESENT: alert, awake, oriented to person, oriented to place, oriented to time, oriented to situation, CN II-XII grossly intact. ABSENT: motor sensory deficit Psychiatric exam: PRESENT: appropriate affect, normal mood. ABSENT: homicidal ideation, suicidal ideation Results Laboratory Results: 01/07/20 05:50 01/07/20 06:00 01/06/20 01/06/20 01/06/20 11:35 12:12 12:12 WBC RBC Hgb Hct MCV MCH MCHC RDW Plt Count Seg Neutrophils % Carbonic Acid 1.32 HCO3/H2CO3 Ratio 21:1 ABG pH 7.42 ABG pCO2 43.8 ABG pO2 125.2 H ABG HCO3 28.0 H ABG O2 Saturation 98.5 H ABG Base Excess 3.2 FiO2 3L Sodium Potassium Chloride Carbon Dioxide Anion Gap BUN Creatinine Est GFR ( Amer) Glucose Calcium Ferritin 69.00 Total Bilirubin AST Alkaline Phosphatase C-Reactive Protein 27.7 H Total Protein Albumin Urine Color Urine Appearance Urine pH Ur Specific Carlock Urine Protein Urine Glucose (UA) Urine Ketones Urine Blood Urine Nitrite Ur Leukocyte Esterase Urine WBC (Auto) Urine RBC (Auto) Blood Type O POSITIVE 01/06/20 01/07/20 01/07/20 12:20 05:50 06:00 WBC 5.0 RBC 4.47 Hgb 9.7 L Hct 31.1 L MCV 70 L MCH 21.6 L MCHC 31.0 L RDW 16.7 H Plt Count 298 Seg Neutrophils % 51.4 Carbonic Acid HCO3/H2CO3 Ratio ABG pH ABG pCO2 ABG pO2 ABG HCO3 ABG O2 Saturation ABG Base Excess FiO2 Sodium 141.4 Potassium 4.4 Chloride 100 Carbon Dioxide 31 H Anion Gap 10 BUN 21 H Creatinine 0.95 Est GFR ( Amer) > 60 Glucose 129 H Calcium 8.7 Ferritin Total Bilirubin 0.7 AST 67 H Alkaline Phosphatase 69 C-Reactive Protein Total Protein 6.7 Albumin 3.7 Urine Color YELLOW Urine Appearance SLIGHTLY-CLOUDY Urine pH 6.0 Ur Specific Carlock 1.020 Urine Protein 100 H Urine Glucose (UA) 50 H Urine Ketones NEGATIVE Urine Blood SMALL H Urine Nitrite NEGATIVE Ur Leukocyte Esterase NEGATIVE Urine WBC (Auto) 5 Urine RBC (Auto) 6 Blood Type 01/06/20 01/06/20 01/06/20 04:15 05:30 05:30 Creatine Kinase Troponin I Cancelled 0.029 NT-Pro-B Natriuret Pep 2740 H 01/06/20 01/07/20 12:12 06:00 Creatine Kinase 473 H Troponin I 0.020 NT-Pro-B Natriuret Pep Impressions: Chest X-Ray 01/06/20 03:56 IMPRESSION: Cardiomegaly with a more rounded appearance of the heart. A pericardial effusion may be present. Chest/Abdomen CTA 01/06/20 06:04 IMPRESSION: 1. No PE. 2. Diffuse patchy ground-glass attenuation which is nonspecific. Pneumonia versus edema. Clinical correlation is needed. Assessment and Plan - Diagnosis (1) COVID-19 Is this a current diagnosis for this admission?: Yes Plan: 01/06/20-patient is going to be admitted to [facility] as inpatient with a diagnosis of COVID-19 pneumonia. Started on dexamethasone, remedies aware, convulsant plasma as per protocol. Provide supplemental oxygenation. GI prophylaxis DVT prophylaxis initiated. CRP, LDH, d-dimer, ESR will be requested. Started on ascorbic acid, aspirin, zinc, heparin for DVT prophylaxis. Patient is a full code at this time. 01/07/2020-patient admitted for COVID-19 pneumonia. As per the family and the patient she was positive for COVID-19 last week. We do not have the results available. COVID-19 swab was done again yesterday. Started on dexamethasone, convulsant plasma, remedies severe, zinc, receiving IV Rocephin and Zithromax. (2) History of CHF (congestive heart failure) Is this a current diagnosis for this admission?: No Plan: 01/06/2020-patient has history of CHF. Stress test last year indicates EF is around 55%. Because of the COVID positive status echocardiogram will be on hold. Not in fluid overload at the time of my examination. CT scan suggestive of pneumonia versus pulmonary edema. 01/07/20-patient has history of chronic congestive heart failure. Not in fluid overload at this time. (3) History of COPD Is this a current diagnosis for this admission?: No Plan: 01/06/2020-patient has history of COPD on 2 L of oxygen at home. Here in the emergency room she is requiring 4 L of oxygen. ABG is pending. 01/07/2020-patient has history of COPD on 2 L of oxygen at home. Pulse ox is 99% on 2 L this morning. Comfortably in the bed resting. (4) HTN (hypertension) Is this a current diagnosis for this admission?: No Plan: 01/06/2020-patient has history of chronic essential hypertension. On Lasix at home. Plan is to resume the Lasix during the hospital stay. Not in fluid overload at the time of my examination. 01/07/2020-patient history of chronic essential hypertension blood pressure is 112/67. Stable. (5) Diabetes Is this a current diagnosis for this admission?: No Plan: 01/06/2020-patient has history of type 2 diabetes on metformin and glipizide at home. To hold metformin at this time started on insulin sliding scale before meals and at bedtime. Diet exercise weight loss lifestyle modifications discussed with the patient. 01/07/2020-patient history of type 2 diabetes mellitus. On insulin sliding scale before meals and at bedtime. On glimepiride. Latest blood sugar is 129. Blood sugars are well controlled. (6) Obesity (BMI 30.0-34.9) Is this a current diagnosis for this admission?: No - Time Anticipated Discharge Disposition: Home, Self Care Anticipated Discharge Timeframe: within 72 hours
[2020-01-07] MEDS ORDERED: HYDROXYZINE PAMOATE 25 MG CAPSULE PO PRN (09:01)
[2020-01-07] MEDS: INSULIN REG, HUMAN 100 UNIT/ML 3 ML VIAL (PYX) SUBCUT SCH ×4 (09:57→21:42)
[2020-01-07] MEDS ORDERED: (PENDING PHARMACY ID) (Lisinopril [Lisinopril] 20 MG) PO SCH (10:00)
[2020-01-07] MEDS ORDERED: VENLAFAXINE HCL 300 MG PO SCH (10:00)
[2020-01-07] MEDS ORDERED: (PENDING PHARMACY ID) (Estradiol [Estrace] 2 MG) PO SCH (10:00)
[2020-01-07] MEDS: FLUTICASONE/VILANTEROL 200-25 MCG/DOSE IH SCH (11:12)
[2020-01-07] MEDS: VENLAFAXINE HCL 75 MG CAP.SR.24H PO SCH (11:13)
[2020-01-07] MEDS: ASPIRIN 81 MG TABLET, ENT COATED PO SCH (11:14)
[2020-01-07] MEDS: AZITHROMYCIN 250 MG TABLET PO SCH (11:14)
[2020-01-07] MEDS: OXYCODONE HCL IR 5 MG TABLET PO SCH ×2 (11:15→21:41)
[2020-01-07] MEDS: LISINOPRIL 10 MG TABLET PO SCH (11:15)
[2020-01-07] MEDS: ASCORBIC ACID 500 MG TABLET PO SCH ×2 (11:15→17:08)
[2020-01-07] MEDS: PANTOPRAZOLE SODIUM 40 MG TABLET.DR PO SCH ×2 (11:15→17:08)
[2020-01-07] MEDS: CETIRIZINE 10 MG TABLET PO SCH (11:16)
[2020-01-07] MEDS: ZINC SULFATE 220 MG CAPSULE PO SCH (11:16)
[2020-01-07] MEDS: DEXAMETHASONE SOD PHOS INJ 10 MG/1 ML VIAL IV SCH (11:16)
[2020-01-07] MEDS: PREGABALIN 75 MG CAPSULE PO SCH ×2 (11:16→21:41)
[2020-01-07] MEDS: FUROSEMIDE 40 MG TABLET PO SCH (11:16)
[2020-01-07] MEDS: HEPARIN SOD (PORCINE) 5,000 UNIT/ML 1 ML VIAL SUBCUT SCH ×2 (13:34→21:42)
[2020-01-07] MEDS: CEFTRIAXONE 2 GM/D5W RTU 2 GM/50 ML RTUPB IV SCH (17:08)
[2020-01-07] MEDS: MONTELUKAST SODIUM 10 MG TABLET PO SCH (17:08)
[2020-01-07] MEDS ORDERED: (PENDING PHARMACY ID) (Simvastatin [Simvastatin] 20 MG) PO SCH (18:00)
[2020-01-07] MEDS: SIMVASTATIN 10 MG TABLET PO SCH (21:41)
[2020-01-07] MEDS: LORAZEPAM 1 MG TABLET PO PRN (21:41)
[2020-01-07] MEDS: REMDESIVIR (EUA) 100 MG in NORMAL SALINE 250 ML IV SCH (23:37)
[2020-01-08] MEDS: HEPARIN SOD (PORCINE) 5,000 UNIT/ML 1 ML VIAL SUBCUT SCH ×3 (05:40→21:55)
[2020-01-08 05:41] LABS: ABSOLUTE MONOCYTES (AUTO) 0.6 10^3/uL (0.1-1.4); ABSOLUTE NEUT (AUTO) 2.7 10^3/uL (1.7-8.2); BASOPHILS % (AUTO) 0.9 % (0-2); EOSINOPHILS % (AUTO) 0.1 % (0-6); HEMATOCRIT 28.6 % (36.0-47.0); HEMOGLOBIN 9.3 g/dL (12.0-15.5); LYMPHOCYTES % (AUTO) 22.4 % (13-45); MEAN CORPUSCULAR HEMOGLOBIN 22.3 pg (27.0-33.4); MEAN CORPUSCULAR HGB CONC 32.4 g/dL (32.0-36.0); MEAN CORPUSCULAR VOLUME 69 fl (80-97); MONOCYTES % (AUTO) 14.6 % (3-13); PLATELET COUNT 275 10^3/uL (150-450); RED BLOOD COUNT 4.16 10^6/uL (3.72-5.28); RED CELL DISTRIBUTION WIDTH 16.7 % (11.5-14.0); TOTAL CELLS COUNTED % (AUTO) 100 %; WHITE BLOOD COUNT 4.4 10^3/uL (4.0-10.5)
[2020-01-08 06:04] LABS: ALBUMIN 3.6 g/dL (3.5-5.0); ALKALINE PHOSPHATASE 72 U/L (38-126); ANION GAP 13 (5-19); ASPARTATE AMINO TRANSFERASE 47 U/L (14-36); BILIRUBIN,DIRECT 0.3 mg/dL (0.0-0.4); BILIRUBIN,TOTAL 0.4 mg/dL (0.2-1.3); BLOOD UREA NITROGEN 22 mg/dL (7-20); CALCIUM 8.5 mg/dL (8.4-10.2); CARBON DIOXIDE 28 mmol/L (22-30); CHLORIDE 99 mmol/L (98-107); CREATINE KINASE 382 U/L (30-135); GLUCOSE 180 mg/dL (75-110); POTASSIUM 4.1 mmol/L (3.6-5.0); TOTAL PROTEIN 6.5 g/dL (6.3-8.2)
[2020-01-08] MEDS ORDERED: INFLUENZA QUAD (6MOS+) 2020-21 VAC 0.5 ML SYR IM ONE (08:00)
[2020-01-08] MEDS: INSULIN REG, HUMAN 100 UNIT/ML 3 ML VIAL (PYX) SUBCUT SCH ×4 (08:46→21:54)
[2020-01-08] MEDS: ZINC SULFATE 220 MG CAPSULE PO SCH (09:21)
[2020-01-08] MEDS: ASPIRIN 81 MG TABLET, ENT COATED PO SCH (09:21)
[2020-01-08] MEDS: DEXAMETHASONE SOD PHOS INJ 10 MG/1 ML VIAL IV SCH (09:21)
[2020-01-08] MEDS: AZITHROMYCIN 250 MG TABLET PO SCH (09:21)
[2020-01-08] MEDS: PANTOPRAZOLE SODIUM 40 MG TABLET.DR PO SCH ×2 (09:21→17:23)
[2020-01-08] MEDS: ASCORBIC ACID 500 MG TABLET PO SCH ×2 (09:21→17:23)
[2020-01-08] MEDS: VENLAFAXINE HCL 75 MG CAP.SR.24H PO SCH (09:22)
[2020-01-08] MEDS: LISINOPRIL 10 MG TABLET PO SCH (09:22)
[2020-01-08] MEDS: PREGABALIN 75 MG CAPSULE PO SCH ×2 (09:22→21:53)
[2020-01-08] MEDS: FUROSEMIDE 40 MG TABLET PO SCH (09:22)
[2020-01-08] MEDS: OXYCODONE HCL IR 5 MG TABLET PO SCH ×2 (09:22→21:54)
[2020-01-08] MEDS: CETIRIZINE 10 MG TABLET PO SCH (09:23)
[2020-01-08] MEDS: FLUTICASONE/VILANTEROL 200-25 MCG/DOSE IH SCH (11:04)
--- NOTE | 2020-01-08 13:38 | PDOC PROGRESS REPORT ---
Subjective Progress Note for:: 01/08/20 Subjective:: Patient is sitting on the edge of the bed eating lunch. She is currently on nasal cannula but the nurse reports that she was on room air earlier today. She states that he does have oxygen at home that she wears when her asthma flares. Reason For Visit: COVID19 Physical Exam Vital Signs: Temp Pulse Resp BP Pulse Ox 98.1 F 65 18 120/64 100 01/08/20 12:16 01/08/20 12:16 01/08/20 12:16 01/08/20 12:16 01/08/20 12:16 Intake & Output 01/07/20 01/08/20 01/09/20 06:59 06:59 06:59 Intake Total 501 900 Output Total 300 Balance 501 600 Weight 82.3 kg 86.6 kg General appearance: PRESENT: no acute distress, cooperative, well-developed, well-nourished Head exam: PRESENT: atraumatic, normocephalic Eye exam: PRESENT: conjunctiva pink. ABSENT: scleral icterus Ear exam: PRESENT: normal external ear exam. ABSENT: bleeding, drainage Mouth exam: PRESENT: moist, tongue midline Neck exam: ABSENT: carotid bruit, JVD, lymphadenopathy Respiratory exam: PRESENT: clear to auscultation nayana, symmetrical, unlabored. ABSENT: prolonged expiratory phas, rales, rhonchi, tachypnea, wheezes Cardiovascular exam: PRESENT: RRR, +S1, +S2. ABSENT: bradycardia, diastolic murmur, irregular rhythm, systolic murmur, tachycardia GI/Abdominal exam: PRESENT: normal bowel sounds, soft. ABSENT: distended, guarding, tenderness Rectal exam: PRESENT: deferred Gentrourinary exam: ABSENT: indwelling catheter Extremities exam: ABSENT: pedal edema Musculoskeletal exam: PRESENT: ambulatory, normal inspection. ABSENT: deformity , dislocation Neurological exam: PRESENT: alert, awake, oriented to person, oriented to place, oriented to time, oriented to situation, CN II-XII grossly intact. ABSENT: alte red Psychiatric exam: PRESENT: appropriate affect, normal mood. ABSENT: agitated, anxious Focused psych exam: ABSENT: delusional, paranoid, restlessness Skin exam: PRESENT: dry, normal color, warm. ABSENT: rash Results Laboratory Results: 01/08/20 04:41 01/08/20 04:41 01/08/20 01/08/20 04:41 04:41 WBC 4.4 RBC 4.16 Hgb 9.3 L Hct 28.6 L MCV 69 L MCH 22.3 L MCHC 32.4 RDW 16.7 H Plt Count 275 Seg Neutrophils % 62.0 Sodium 139.7 Potassium 4.1 Chloride 99 Carbon Dioxide 28 Anion Gap 13 BUN 22 H Creatinine 1.03 Est GFR ( Amer) > 60 Glucose 180 H Calcium 8.5 Magnesium 2.0 Total Bilirubin 0.4 AST 47 H Alkaline Phosphatase 72 Total Protein 6.5 Albumin 3.6 01/06/20 12:10 Throat Throat Culture - Final NORMAL CHIP 01/06/20 01/06/20 01/06/20 04:15 05:30 05:30 Creatine Kinase Troponin I Cancelled 0.029 NT-Pro-B Natriuret Pep 2740 H 01/06/20 01/07/20 01/08/20 12:12 06:00 04:41 Creatine Kinase 473 H 382 H Troponin I 0.020 NT-Pro-B Natriuret Pep Impressions: Chest X-Ray 01/06/20 03:56 IMPRESSION: Cardiomegaly with a more rounded appearance of the heart. A pericardial effusion may be present. Chest/Abdomen CTA 01/06/20 06:04 IMPRESSION: 1. No PE. 2. Diffuse patchy ground-glass attenuation which is nonspecific. Pneumonia versus edema. Clinical correlation is needed. Assessment and Plan - Diagnosis (1) Pneumonia due to COVID-19 virus Is this a current diagnosis for this admission?: Yes Plan: 01/18/2020-doing very well. Currently receiving third dose of Remdisivir. Intermittently on room air. Anticipate discharge when IV therapy is completed. As patient is doing well, initiate Decadron taper. (2) HTN (hypertension) Qualifiers: Hypertension type: essential hypertension Qualified Code(s): I10 - Ess ential (primary) hypertension Is this a current diagnosis for this admission?: Yes Plan: 01/08/2020-continue lisinopril and furosemide. Blood pressures stable at this time. (3) Chronic obstructive pulmonary disease Qualifiers: COPD type: unspecified COPD Qualified Code(s): J44.9 - Chronic obstructive pulmonary disease, unspecified Is this a current diagnosis for this admission?: Yes Plan: 01/08/2020-patient is on Brio Ellipta at home. Continue Brio. Continue to wean Decadron. Taper oxygen as tolerated. (4) History of CHF (congestive heart failure) Is this a current diagnosis for this admission?: Yes Plan: 01/08/2020-there was an echocardiogram in 2011 but there is no report in the computer. Unable to determine the exact type of heart failure. Heart failure does not appear to be an acute clinical issue at this time. Continue current medications and reassess heart failure as an outpatient. (5) Hyperglycemia due to type 2 diabetes mellitus Qualifiers: Diabetes mellitus fdc insulin use: without fdc use Qualified Code(s): E11.65 - Type 2 diabetes mellitus with hyperglycemia Is this a current diagnosis for this admission?: Yes Plan: We will resume metformin. Continue Accu-Cheks and sliding scale. Steroids decrease hyperglycemia should improve. (6) Obesity (BMI 30.0-34.9) Is this a current diagnosis for this admission?: Yes Plan: 01/08/2020-encourage weight loss and exercise when she recovers from her pneumonia. - Time Time Spent with patient: 15-24 minutes Medications reviewed and adjusted accordingly: Yes Anticipated Discharge Disposition: Home, Self Care Anticipated Discharge Timeframe: within 72 hours
[2020-01-08] MEDS: METFORMIN HCL 500 MG TABLET PO SCH (17:23)
[2020-01-08] MEDS: MONTELUKAST SODIUM 10 MG TABLET PO SCH (17:23)
[2020-01-08] MEDS: CEFTRIAXONE 2 GM/D5W RTU 2 GM/50 ML RTUPB IV SCH (17:24)
[2020-01-08] MEDS: REMDESIVIR (EUA) 100 MG in NORMAL SALINE 250 ML IV SCH (21:53)
[2020-01-08] MEDS: SIMVASTATIN 10 MG TABLET PO SCH (21:53)
[2020-01-08] MEDS: LORAZEPAM 1 MG TABLET PO PRN (21:54)
[2020-01-09 05:35] LABS: HEMATOCRIT 28.7 % (36.0-47.0); HEMOGLOBIN 9.1 g/dL (12.0-15.5); MEAN CORPUSCULAR HEMOGLOBIN 21.8 pg (27.0-33.4); MEAN CORPUSCULAR HGB CONC 31.7 g/dL (32.0-36.0); MEAN CORPUSCULAR VOLUME 69 fl (80-97); PLATELET COUNT 303 10^3/uL (150-450); RED BLOOD COUNT 4.19 10^6/uL (3.72-5.28); RED CELL DISTRIBUTION WIDTH 16.2 % (11.5-14.0); WHITE BLOOD COUNT 5.9 10^3/uL (4.0-10.5)
[2020-01-09 05:36] LABS: INTERNATIONAL RATION (INR) 1.07; PROTHROMBIN TIME 14.1 SEC (11.4-15.4)
[2020-01-09] MEDS: HEPARIN SOD (PORCINE) 5,000 UNIT/ML 1 ML VIAL SUBCUT SCH ×3 (05:45→22:34)
[2020-01-09 05:47] LABS: ALBUMIN 3.5 g/dL (3.5-5.0); ALKALINE PHOSPHATASE 69 U/L (38-126); ANION GAP 13 (5-19); ASPARTATE AMINO TRANSFERASE 46 U/L (14-36); BILIRUBIN,DIRECT 0.3 mg/dL (0.0-0.4); BILIRUBIN,TOTAL 0.5 mg/dL (0.2-1.3); BLOOD UREA NITROGEN 24 mg/dL (7-20); CALCIUM 8.3 mg/dL (8.4-10.2); CARBON DIOXIDE 27 mmol/L (22-30); CHLORIDE 99 mmol/L (98-107); CREATINE KINASE 238 U/L (30-135); GLUCOSE 146 mg/dL (75-110); POTASSIUM 3.8 mmol/L (3.6-5.0); TOTAL PROTEIN 6.1 g/dL (6.3-8.2)
[2020-01-09 06:23] LABS: ABSOLUTE LYMPHOCYTES# (MANUAL) 1.3 10^3/uL (0.5-4.7); ABSOLUTE MONOCYTES # (MANUAL) 0.8 10^3/uL (0.1-1.4); ANISOCYTOSIS 1+; BASOPHILS % (MANUAL) 0 % (0-2); EOSINOPHILS % (MANUAL) 0 % (0-6); HYPOCHROMASIA SLIGHT; LYMPHOCYTES % (MANUAL) 22 % (13-45); MONOCYTES % (MANUAL) 13 % (3-13); PLATELET COMMENT ADEQUATE; SEGMENTED NEUTROPHILS % (MAN) 65 % (42-78); TOTAL CELLS COUNTED 100; TOXIC VACUOLATION PRESENT
[2020-01-09] MEDS: INSULIN REG, HUMAN 100 UNIT/ML 3 ML VIAL (PYX) SUBCUT SCH ×4 (08:33→22:36)
[2020-01-09] MEDS: CETIRIZINE 10 MG TABLET PO SCH (09:39)
[2020-01-09] MEDS: ASPIRIN 81 MG TABLET, ENT COATED PO SCH (09:39)
[2020-01-09] MEDS: LISINOPRIL 10 MG TABLET PO SCH (09:39)
[2020-01-09] MEDS: VENLAFAXINE HCL 75 MG CAP.SR.24H PO SCH (09:39)
[2020-01-09] MEDS: FUROSEMIDE 40 MG TABLET PO SCH (09:39)
[2020-01-09] MEDS: ZINC SULFATE 220 MG CAPSULE PO SCH (09:39)
[2020-01-09] MEDS: PREGABALIN 75 MG CAPSULE PO SCH ×2 (09:39→22:35)
[2020-01-09] MEDS: PANTOPRAZOLE SODIUM 40 MG TABLET.DR PO SCH ×2 (09:39→17:02)
[2020-01-09] MEDS: AZITHROMYCIN 250 MG TABLET PO SCH (09:40)
[2020-01-09] MEDS: METFORMIN HCL 500 MG TABLET PO SCH ×2 (09:40→17:01)
[2020-01-09] MEDS: ASCORBIC ACID 500 MG TABLET PO SCH ×2 (09:40→17:02)
[2020-01-09] MEDS: OXYCODONE HCL IR 5 MG TABLET PO SCH ×2 (09:40→22:35)
[2020-01-09] MEDS ORDERED: DEXAMETHASONE SOD PHOSPHATE INJ 4 MG/1 ML VIAL IV SCH (10:00)
[2020-01-09] MEDS: FLUTICASONE/VILANTEROL 200-25 MCG/DOSE IH SCH (13:12)
--- NOTE | 2020-01-09 14:30 | PDOC PROGRESS REPORT ---
Subjective Progress Note for:: 01/09/20 Subjective:: Resting comfortably in bed. Disappointed that she is not able to go home. She has 1 more dose of medication for tomorrow. She otherwise has no complaints and is doing well. Reason For Visit: COVID19 Physical Exam Vital Signs: Temp Pulse Resp BP Pulse Ox 98.8 F 76 18 140/82 H 97 01/09/20 11:30 01/09/20 11:30 01/09/20 11:30 01/09/20 11:30 01/09/20 11:30 Intake & Output 01/08/20 01/09/20 01/10/20 06:59 06:59 06:59 Intake Total 900 1371 Output Total 300 Balance 600 1371 Weight 86.6 kg 86 kg General appearance: PRESENT: no acute distress, cooperative, well-developed. ABSENT: disheveled Head exam: PRESENT: atraumatic, normocephalic Ear exam: PRESENT: normal external ear exam. ABSENT: bleeding, drainage Mouth exam: PRESENT: moist, tongue midline Teeth exam: PRESENT: poor dentation Respiratory exam: PRESENT: clear to auscultation nayana, symmetrical, unlabored. ABSENT: rales, rhonchi, tachypnea, wheezes Cardiovascular exam: PRESENT: RRR, +S1, +S2. ABSENT: bradycardia, diastolic murmur, irregular rhythm, systolic murmur, tachycardia GI/Abdominal exam: PRESENT: normal bowel sounds, soft. ABSENT: distended, guarding, tenderness Rectal exam: PRESENT: deferred Gentrourinary exam: ABSENT: indwelling catheter Extremities exam: ABSENT: calf tenderness, pedal edema Musculoskeletal exam: PRESENT: ambulatory, normal inspection. ABSENT: deformity, dislocation Neurological exam: PRESENT: alert, awake, oriented to person, oriented to place, oriented to time, oriented to situation, CN II-XII grossly intact. ABSENT: altered Psychiatric exam: PRESENT: appropriate affect. ABSENT: agitated, anxious Focused psych exam: ABSENT: delusional, paranoid, restlessness Skin exam: PRESENT: dry, normal color, warm. ABSENT: rash Results Laboratory Results: 01/09/20 04:20 01/09/20 04:20 01/09/20 01/09/20 04:20 04:20 WBC 5.9 RBC 4.19 Hgb 9.1 L Hct 28.7 L MCV 69 L MCH 21.8 L MCHC 31.7 L RDW 16.2 H Plt Count 303 Seg Neutrophils % Not Reportable Sodium 139.1 Potassium 3.8 Chloride 99 Carbon Dioxide 27 Anion Gap 13 BUN 24 H Creatinine 1.02 Est GFR ( Amer) > 60 Glucose 146 H Calcium 8.3 L Total Bilirubin 0.5 AST 46 H Alkaline Phosphatase 69 Total Protein 6.1 L Albumin 3.5 01/06/20 12:10 Throat Throat Culture - Final NORMAL CHIP 01/06/20 01/06/20 01/06/20 04:15 05:30 05:30 Creatine Kinase Troponin I Cancelled 0.029 NT-Pro-B Natriuret Pep 2740 H 01/06/20 01/07/20 01/08/20 12:12 06:00 04:41 Creatine Kinase 473 H 382 H Troponin I 0.020 NT-Pro-B Natriuret Pep 01/09/20 04:20 Creatine Kinase 238 H Troponin I NT-Pro-B Natriuret Pep Impressions: Chest X-Ray 01/06/20 03:56 IMPRESSION: Cardiomegaly with a more rounded appearance of the heart. A pericardial effusion may be present. Chest/Abdomen CTA 01/06/20 06:04 IMPRESSION: 1. No PE. 2. Diffuse patchy ground-glass attenuation which is nonspecific. Pneumonia versus edema. Clinical correlation is needed. Assessment and Plan - Diagnosis (1) Pneumonia due to COVID-19 virus Is this a current diagnosis for this admission?: Yes Plan: 01/08/2020-doing very well. Currently receiving third dose of Remdisivir. Intermittently on room air. Anticipate discharge when IV therapy is completed. As patient is doing well, initiate Decadron taper. 01/09/2020-the patient is due for her last dose of Remdesivir tomorrow. After the infusion she will be able to discharge home. She will need to follow-up with the standard precautions for COVID positive patient's after discharge. She does tell me that she lives alone so this does make it somewhat easier. (2) HTN (hypertension) Qualifiers: Hypertension type: essential hypertension Qualified Code(s): I10 - Essential (primary) hypertension Is this a current diagnosis for this admission?: Yes Plan: 01/08/2020-continue lisinopril and furosemide. Blood pressures stable at this time. 01/09/2020-on average blood pressures are acceptable. Continue current treatment regimen. (3) Chronic obstructive pulmonary disease Qualifiers: COPD type: unspecified COPD Qualified Code(s): J44.9 - Chronic obstructive pulmonary disease, unspecified Is this a current diagnosis for this admission?: Yes Plan: 01/08/2020-patient is on Brio Ellipta at home. Continue Brio. Continue to wean Decadron. Taper oxygen as tolerated. 01/09/2020-she is back on her Brio Ellipta and montelukast. Will decrease Decadron with anticipation of discontinuing at the time of discharge (4) History of CHF (congestive heart failure) Is this a current diagnosis for this admission?: Yes Plan: 01/08/2020-there was an echocardiogram in 2011 but there is no report in the computer. Unable to determine the exact type of heart failure. Heart failure does not appear to be an acute clinical issue at this time. Continue current medications and reassess heart failure as an outpatient. (5) Hyperglycemia due to type 2 diabetes mellitus Qualifiers: Diabetes mellitus prison insulin use: without prison use Qualified Code(s): E11.65 - Type 2 diabetes mellitus with hyperglycemia Is this a current diagnosis for this admission?: Yes Plan: We will resume metformin. Continue Accu-Cheks and sliding scale. Steroids decrease hyperglycemia should improve. 01/09/2020-back on metformin. Continue sliding scale. Off of Decadron her sugar should improve. She may need additional treatment but I will defer to her primary care provider. (6) Obesity (BMI 30.0-34.9) Is this a current diagnosis for this admission?: Yes Plan: 01/08/2020-encourage weight loss and exercise when she recovers from her pneumonia. 01/09/2020-BMI is 33.6. With her current comorbidities she would benefit from weight loss with dieting and increased exercise. - Time Time Spent with patient: 15-24 minutes Medications reviewed and adjusted accordingly: Yes Anticipated Discharge Disposition: Home, Self Care Anticipated Discharge Timeframe: within 24 hours
[2020-01-09] MEDS: MONTELUKAST SODIUM 10 MG TABLET PO SCH (17:01)
[2020-01-09] MEDS: CEFTRIAXONE 2 GM/D5W RTU 2 GM/50 ML RTUPB IV SCH (17:02)
[2020-01-09] MEDS: SIMVASTATIN 10 MG TABLET PO SCH (22:34)
[2020-01-09] MEDS: LORAZEPAM 1 MG TABLET PO PRN (22:34)
[2020-01-09] MEDS: REMDESIVIR (EUA) 100 MG in NORMAL SALINE 250 ML IV SCH (22:36)
[2020-01-10 05:43] LABS: HEMOGLOBIN 9.9 g/dL (12.0-15.5); MEAN CORPUSCULAR HEMOGLOBIN 21.9 pg (27.0-33.4); MEAN CORPUSCULAR HGB CONC 31.9 g/dL (32.0-36.0); MEAN CORPUSCULAR VOLUME 69 fl (80-97); PLATELET COUNT 332 10^3/uL (150-450); RED BLOOD COUNT 4.51 10^6/uL (3.72-5.28); RED CELL DISTRIBUTION WIDTH 16.4 % (11.5-14.0); WHITE BLOOD COUNT 7.3 10^3/uL (4.0-10.5)
[2020-01-10 06:08] LABS: ALBUMIN 3.6 g/dL (3.5-5.0); ALKALINE PHOSPHATASE 72 U/L (38-126); ANION GAP 12 (5-19); ASPARTATE AMINO TRANSFERASE 44 U/L (14-36); BILIRUBIN,DIRECT 0.4 mg/dL (0.0-0.4); BILIRUBIN,TOTAL 0.5 mg/dL (0.2-1.3); BLOOD UREA NITROGEN 25 mg/dL (7-20); CALCIUM 8.8 mg/dL (8.4-10.2); CARBON DIOXIDE 30 mmol/L (22-30); CHLORIDE 99 mmol/L (98-107); CREATINE KINASE 136 U/L (30-135); GLUCOSE 151 mg/dL (75-110); POTASSIUM 3.7 mmol/L (3.6-5.0); TOTAL PROTEIN 6.4 g/dL (6.3-8.2)
[2020-01-10] MEDS: HEPARIN SOD (PORCINE) 5,000 UNIT/ML 1 ML VIAL SUBCUT SCH ×2 (06:36→13:28)
[2020-01-10] MEDS: FUROSEMIDE 40 MG TABLET PO SCH (08:10)
[2020-01-10] MEDS: INSULIN REG, HUMAN 100 UNIT/ML 3 ML VIAL (PYX) SUBCUT SCH ×3 (08:22→17:20)
[2020-01-10] MEDS: LISINOPRIL 10 MG TABLET PO SCH (09:10)
[2020-01-10] MEDS: ZINC SULFATE 220 MG CAPSULE PO SCH (09:10)
[2020-01-10] MEDS: PREGABALIN 75 MG CAPSULE PO SCH (09:10)
[2020-01-10] MEDS: OXYCODONE HCL IR 5 MG TABLET PO SCH (09:10)
[2020-01-10] MEDS: METFORMIN HCL 500 MG TABLET PO SCH ×2 (09:11→17:15)
[2020-01-10] MEDS: CETIRIZINE 10 MG TABLET PO SCH (09:12)
[2020-01-10] MEDS: PANTOPRAZOLE SODIUM 40 MG TABLET.DR PO SCH ×2 (09:12→17:15)
[2020-01-10] MEDS: ASCORBIC ACID 500 MG TABLET PO SCH ×2 (09:12→17:15)
[2020-01-10] MEDS: ASPIRIN 81 MG TABLET, ENT COATED PO SCH (09:13)
[2020-01-10] MEDS: VENLAFAXINE HCL 75 MG CAP.SR.24H PO SCH (09:13)
[2020-01-10] MEDS: AZITHROMYCIN 250 MG TABLET PO SCH (09:13)
[2020-01-10] MEDS ORDERED: DEXAMETHASONE SOD PHOSPHATE INJ 4 MG/1 ML VIAL IV SCH (10:00)
--- NOTE | 2020-01-10 11:49 | PDOC DISCHARGE SUMMARY ---
Impression - Admit/DC Date/PCP Admission Date/Primary Care Provider: 01/06/20 11:33 SHADIA LEUNG MD Discharge Date: 01/10/20 - Discharge Diagnosis (1) Pneumonia due to COVID-19 virus Is this a current diagnosis for this admission?: Yes (2) HTN (hypertension) Is this a current diagnosis for this admission?: Yes (3) Chronic obstructive pulmonary disease Is this a current diagnosis for this admission?: Yes (4) History of CHF (congestive heart failure) Is this a current diagnosis for this admission?: Yes (5) Hyperglycemia due to type 2 diabetes mellitus Is this a current diagnosis for this admission?: Yes (6) Obesity (BMI 30.0-34.9) Is this a current diagnosis for this admission?: Yes - Additional Information Resuscitation Status: Full Code Discharge Diet: Cardiac, Diabetic Discharge Activity: Activity As Tolerated, Balance Activity w/Rest Referrals: SHADIA LEUNG MD [Primary Care Provider] - 01/24/20 10:45 am Home Medications: Cetirizine HCl [Allergy] 10 mg PO DAILY 06/06/15 Esomeprazole Magnesium [Nexium] 40 mg PO BID 06/06/15 Furosemide [Lasix 40 mg Tablet] 40 mg PO QAM 06/06/15 Hydroxyzine HCl [Atarax 25 mg Tablet] 25 mg PO TIDP PRN 06/06/15 Lisinopril 20 mg PO DAILY 06/06/15 Metformin HCl [Glucophage 500 mg Tablet] 1,000 mg PO BID 06/06/15 Oxycodone HCl 5 mg PO BID 06/06/15 Pregabalin [Lyrica] 150 mg PO BID 06/06/15 Simvastatin 20 mg PO QPM 06/06/15 Tramadol HCl 50 mg PO TID 06/06/15 Venlafaxine HCl [Venlafaxine HCl ER] 300 mg PO DAILY 06/06/15 Estradiol [Estrace] 2 mg PO DAILY 01/06/20 Fluticasone/Vilanterol [Breo 200-25 Mcg Ellipta 14 Dose/Dpi] 1 inh IH DAILY 01/06/20 Lorazepam [Ativan 1 mg Tablet] 1 mg PO BIDP PRN 01/06/20 Montelukast Sodium [Singulair 10 mg Tablet] 10 mg PO QPM 01/06/20 Ascorbic Acid [Vitamin C 500 mg Tablet] 500 mg PO BID tablet 01/10/20 Aspirin [Ecotrin 81 mg EC Tablet] 81 mg PO DAILY tabec 01/10/20 Zinc Sulfate [Zinc-220 Capsule] 220 mg PO DAILY capsule 01/10/20 History of Present Illiness History of Present Illness: CAMILLE MORALES is a 59 year old female with history of congestive heart failure, COPD on 2 L oxygen, hypertension, diabetes mellitus, ex-smoker came to the emergency room with complaints of shortness of breath for the last 24 hours. She was tested positive for COVID-19 on Tuesday last week. Complaining of fever at home. Complaining of dry cough. Denies any nausea vomiting diarrhea or abdominal pain. Complaining of increased sweating and chills. Hospital Course Hospital Course: (1) Pneumonia due to COVID-19 virus Is this a current diagnosis for this admission?: Yes Plan: 01/08/2020-doing very well. Currently receiving third dose of Remdisivir. Intermittently on room air. Anticipate discharge when IV therapy is completed. As patient is doing well, initiate Decadron taper. 01/09/2020-the patient is due for her last dose of Remdesivir tomorrow. After the infusion she will be able to discharge home. She will need to follow-up with the standard precautions for COVID positive patient's after discharge. She does tell me that she lives alone so this does make it somewhat easier. (2) HTN (hypertension) Qualifiers: Hypertension type: essential hypertension Qualified Code(s): I10 - Essential (primary) hypertension Is this a current diagnosis for this admission?: Yes Plan: 01/08/2020-continue lisinopril and furosemide. Blood pressures stable at this time. 01/09/2020-on average blood pressures are acceptable. Continue current treatment regimen. (3) Chronic obstructive pulmonary disease Qualifiers: COPD type: unspecified COPD Qualified Code(s): J44.9 - Chronic obstructive pulmonary disease, unspecified Is this a current diagnosis for this admission?: Yes Plan: 01/08/2020-patient is on Brio Ellipta at home. Continue Brio. Continue to wean Decadron. Taper oxygen as tolerated. 01/09/2020-she is back on her Brio Ellipta and montelukast. Will decrease Decadron with anticipation of discontinuing at the time of discharge (4) History of CHF (congestive heart failure) Is this a current diagnosis for this admission?: Yes Plan: 01/08/2020-there was an echocardiogram in 2011 but there is no report in the computer. Unable to determine the exact type of heart failure. Heart failure does not appear to be an acute clinical issue at this time. Continue current medications and reassess heart failure as an outpatient. (5) Hyperglycemia due to type 2 diabetes mellitus Qualifiers: Diabetes mellitus intermodal owner operator truck driver insulin use: without intermodal owner operator truck driver use Qualified Code(s): E11.65 - Type 2 diabetes mellitus with hyperglycemia Is this a current diagnosis for this admission?: Yes Plan: We will resume metformin. Continue Accu-Cheks and sliding scale. Steroids decrease hyperglycemia should improve. 01/09/2020-back on metformin. Continue sliding scale. Off of Decadron her sugar should improve. She may need additional treatment but I will defer to her primary care provider. (6) Obesity (BMI 30.0-34.9) Is this a current diagnosis for this admission?: Yes Plan: 01/08/2020-encourage weight loss and exercise when she recovers from her pneumonia. 01/09/2020-BMI is 33.6. With her current comorbidities she would benefit from weight loss with dieting and increased exercise. Physical Exam Vital Signs: Temp Pulse Resp BP Pulse Ox 98.3 F 80 19 121/74 97 01/10/20 08:27 01/10/20 08:27 01/10/20 08:27 01/10/20 08:27 01/10/20 08:27 Intake & Output 01/09/20 01/10/20 01/11/20 06:59 06:59 06:59 Intake Total 1371 1982 Balance 1371 1982 Weight 86 kg 83.4 kg General appearance: PRESENT: no acute distress, cooperative, well-developed Head exam: PRESENT: atraumatic, normocephalic Respiratory exam: PRESENT: clear to auscultation nayana, symmetrical, unlabored. ABSENT: prolonged expiratory phas, rales, retraction, rhonchi, tachypnea, wheezes Cardiovascular exam: PRESENT: RRR, +S1, +S2. ABSENT: bradycardia, diastolic murmur, irregular rhythm, systolic murmur, tachycardia GI/Abdominal exam: PRESENT: normal bowel sounds, soft. ABSENT: tenderness Rectal exam: PRESENT: deferred Gentrourinary exam: ABSENT: indwelling catheter Extremities exam: ABSENT: pedal edema Musculoskeletal exam: PRESENT: ambulatory, normal inspection. ABSENT: deformity, dislocation Neurological exam: PRESENT: alert, awake, oriented to person, oriented to place, oriented to time, oriented to situation, CN II-XII grossly intact. ABSENT: altered Psychiatric exam: PRESENT: appropriate affect. ABSENT: agitated, anxious Focused psych exam: ABSENT: delusional, paranoid, restlessness Skin exam: PRESENT: dry, normal color, warm. ABSENT: rash Results Laboratory Results: WBC 7.3 10^3/uL (4.0-10.5) 01/10/20 04:33 RBC 4.51 10^6/uL (3.72-5.28) 01/10/20 04:33 Hgb 9.9 g/dL (12.0-15.5) L 01/10/20 04:33 Hct 31.0 % (36.0-47.0) L 01/10/20 04:33 MCV 69 fl (80-97) L 01/10/20 04:33 MCH 21.9 pg (27.0-33.4) L 01/10/20 04:33 MCHC 31.9 g/dL (32.0-36.0) L 01/10/20 04:33 RDW 16.4 % (11.5-14.0) H 01/10/20 04:33 Plt Count 332 10^3/uL (150-450) 01/10/20 04:33 Lymph % (Auto) 29.9 % (13-45) 01/10/20 04:33 [place] % (Auto) 12.9 % (3-13) 01/10/20 04:33 Eos % (Auto) 0.3 % (0-6) 01/10/20 04:33 Baso % (Auto) 1.6 % (0-2) 01/10/20 04:33 Absolute Neuts (auto) 4.0 10^3/uL (1.7-8.2) 01/10/20 04:33 Absolute Lymphs (auto) 2.2 10^3/uL (0.5-4.7) 01/10/20 04:33 Absolute Monos (auto) 0.9 10^3/uL (0.1-1.4) 01/10/20 04:33 Absolute Eos (auto) 0.0 10^3/uL (0.0-0.6) 01/10/20 04:33 Absolute Basos (auto) 0.1 10^3/uL (0.0-0.2) 01/10/20 04:33 Total Counted 100 01/09/20 04:20 Seg Neutrophils % 55.3 % (42-78) 01/10/20 04:33 Seg Neuts % (Manual) 65 % (42-78) 01/09/20 04:20 Lymphocytes % (Manual) 22 % (13-45) 01/09/20 04:20 Monocytes % (Manual) 13 % (3-13) 01/09/20 04:20 Eosinophils % (Manual) 0 % (0-6) 01/09/20 04:20 Basophils % (Manual) 0 % (0-2) 01/09/20 04:20 Abs Neuts (Manual) 3.8 10^3/uL (1.7-8.2) 01/09/20 04:20 Abs Lymphs (Manual) 1.3 10^3/uL (0.5-4.7) 01/09/20 04:20 Abs Monocytes (Manual) 0.8 10^3/uL (0.1-1.4) 01/09/20 04:20 Absolute Eos (Manual) 0.0 10^3/uL (0.0-0.6) 01/09/20 04:20 Abs Basophils (Manual) 0.0 10^3/uL (0.0-0.2) 01/09/20 04:20 Toxic Vacuolation PRESENT 01/09/20 04:20 Platelet Comment ADEQUATE 01/09/20 04:20 Hypochromasia SLIGHT 01/09/20 04:20 Anisocytosis 1+ 01/09/20 04:20 Microcytosis 2+ 01/09/20 04:20 PT 14.1 SEC (11.4-15.4) 01/09/20 04:20 INR 1.07 01/09/20 04:20 D-Dimer 1.46 ug/mL (0.00-0.50) H 01/06/20 12:12 Carbonic Acid 1.32 mmol/L (1.05-1.35) 01/06/20 11:35 HCO3/H2CO3 Ratio 21:1 01/06/20 11:35 ABG pH 7.42 (7.35-7.45) 01/06/20 11:35 ABG pCO2 43.8 mmHg (35-45) 01/06/20 11:35 ABG pO2 125.2 mmHg (80-100) H 01/06/20 11:35 ABG HCO3 28.0 mmol/L (20-24) H 01/06/20 11:35 ABG Total CO2 29.3 mmol/L (21-25) H 01/06/20 11:35 ABG O2 Saturation 98.5 % (94-98) H 01/06/20 11:35 ABG Base Excess 3.2 mmol/L 01/06/20 11:35 VBG pH 7.57 (7.30-7.42) H 01/06/20 04:15 VBG pCO2 30.9 mmHg (35-63) L 01/06/20 04:15 VBG HCO3 27.4 mmol/L (20-32) 01/06/20 04:15 VBG Base Excess 5.8 mmol/L 01/06/20 04:15 FiO2 3L 01/06/20 11:35 Sodium 140.9 mmol/L (137-145) 01/10/20 04:33 Potassium 3.7 mmol/L (3.6-5.0) 01/10/20 04:33 Chloride 99 mmol/L (98-107) 01/10/20 04:33 Carbon Dioxide 30 mmol/L (22-30) 01/10/20 04:33 Anion Gap 12 (5-19) 01/10/20 04:33 BUN 25 mg/dL (7-20) H 01/10/20 04:33 Creatinine 1.03 mg/dL (0.52-1.25) 01/10/20 04:33 Est GFR ( Amer) > 60 (>60) 01/10/20 04:33 Est GFR (Non-Af Amer) Cancelled 01/06/20 04:15 Est GFR (MDRD) Non-Af 55 (>60) L 01/10/20 04:33 Glucose 151 mg/dL (75-110) H 01/10/20 04:33 POC Glucose 252 mg/dL (70-110) H 01/10/20 11:34 Lactic Acid 1.6 mmol/L (0.7-2.1) 01/06/20 04:15 Calcium 8.8 mg/dL (8.4-10.2) 01/10/20 04:33 Magnesium 2.0 mg/dL (1.6-2.3) 01/08/20 04:41 Ferritin 69.00 ng/mL (11.1-264.0) 01/06/20 12:12 Total Bilirubin 0.5 mg/dL (0.2-1.3) 01/10/20 04:33 Direct Bilirubin 0.4 mg/dL (0.0-0.4) 01/10/20 04:33 Neonat Total Bilirubin Not Reportable 01/10/20 04:33 Neonat Direct Bilirubin Not Reportable 01/10/20 04:33 Neonat Indirect Bili Not Reportable 01/10/20 04:33 AST 44 U/L (14-36) H 01/10/20 04:33 ALT 38 U/L (<35) H 01/10/20 04:33 Alkaline Phosphatase 72 U/L (38-126) 01/10/20 04:33 Lactate Dehydrogenase 371 U/L (120-246) H 01/06/20 12:12 Creatine Kinase 136 U/L (30-135) H 01/10/20 04:33 Troponin I 0.020 ng/mL 01/06/20 12:12 C-Reactive Protein 27.7 mg/L (<10.0) H 01/06/20 12:12 NT-Pro-B Natriuret Pep 2740 pg/mL (<125) H 01/06/20 05:30 Total Protein 6.4 g/dL (6.3-8.2) 01/10/20 04:33 Albumin 3.6 g/dL (3.5-5.0) 01/10/20 04:33 EGFR Cancelled 01/06/20 04:15 Urine Color YELLOW 01/06/20 12:20 Urine Appearance SLIGHTLY-CLOUDY 01/06/20 12:20 Urine pH 6.0 (5.0-9.0) 01/06/20 12:20 Ur Specific [place] 1.020 01/06/20 12:20 Urine Protein 100 mg/dL (NEGATIVE) H 01/06/20 12:20 Urine Glucose (UA) 50 mg/dL (NEGATIVE) H 01/06/20 12:20 Urine Ketones NEGATIVE mg/dL (NEGATIVE) 01/06/20 12:20 Urine Blood SMALL (NEGATIVE) H 01/06/20 12:20 Urine Nitrite NEGATIVE (NEGATIVE) 01/06/20 12:20 Urine Bilirubin NEGATIVE (NEGATIVE) 01/06/20 12:20 Urine Urobilinogen NEGATIVE mg/dL (<2.0) 01/06/20 12:20 Ur Leukocyte Esterase NEGATIVE (NEGATIVE) 01/06/20 12:20 Urine WBC (Auto) 5 /HPF 01/06/20 12:20 Urine RBC (Auto) 6 /HPF 01/06/20 12:20 Urine Bacteria (Auto) 1+ /HPF 01/06/20 12:20 Squamous Epi Cells Auto <1 /HPF 01/06/20 12:20 Urine Mucus (Auto) RARE /LPF 01/06/20 12:20 Urine Ascorbic Acid NEGATIVE (NEGATIVE) 01/06/20 12:20 Urine Opiates Screen NEGATIVE 01/06/20 12:20 Urine Methadone Screen NEGATIVE 01/06/20 12:20 Ur Barbiturates Screen NEGATIVE 01/06/20 12:20 Ur Phencyclidine Scrn NEGATIVE 01/06/20 12:20 Ur Amphetamines Screen NEGATIVE 01/06/20 12:20 U Benzodiazepines Scrn NEGATIVE 01/06/20 12:20 Urine Cocaine Screen NEGATIVE 01/06/20 12:20 U Marijuana (THC) Screen NEGATIVE 01/06/20 12:20 COVID-19 Source See comment 01/06/20 15:51 COVID-19 ([place]) DETECTED (Not Detect) A 01/06/20 15:51 Influenza A (Rapid) NEGATIVE (NEGATIVE) 01/06/20 12:10 Influenza B (Rapid) NEGATIVE (NEGATIVE) 01/06/20 12:10 Group A Strep Rapid NEGATIVE (NEGATIVE) 01/06/20 12:10 Blood Type O POSITIVE 01/06/20 12:12 01/06/20 01/06/20 01/06/20 04:15 05:30 05:30 Troponin I Cancelled 0.029 NT-Pro-B Natriuret Pep 2740 H 01/06/20 12:12 Troponin I 0.020 NT-Pro-B Natriuret Pep Impressions: Chest X-Ray 01/06/20 03:56 IMPRESSION: Cardiomegaly with a more rounded appearance of the heart. A pericardial effusion may be present. Chest/Abdomen CTA 01/06/20 06:04 IMPRESSION: 1. No PE. 2. Diffuse patchy ground-glass attenuation which is nonspecific. Pneumonia versus edema. Clinical correlation is needed. Plan Health Concerns: Covid-19 pneumonia Plan of Treatment: Maintain recommended Department of Health quarantine measures as an outpatient with positive Covid-19 testing Goals: Complete resolution of the infection Time Spent: Greater than 30 Minutes Stroke Is this a Stroke Patient?: No Acute Heart Failure Is this a Heart Failure Patient?: No
[2020-01-10] MEDS: FLUTICASONE/VILANTEROL 200-25 MCG/DOSE IH SCH (13:29)
[2020-01-10] MEDS ORDERED: REMDESIVIR (EUA) 100 MG in NORMAL SALINE 250 ML IV ONE (14:00)
[2020-01-10 16:25] VITALS: BP 132/75
[2020-01-10] MEDS: MONTELUKAST SODIUM 10 MG TABLET PO SCH (17:15)
[2020-01-11 12:50] LABS: ABSOLUTE LYMPHOCYTES# (MANUAL) 2.7 10^3/uL (0.5-4.7); ABSOLUTE MONOCYTES # (MANUAL) 0.7 10^3/uL (0.1-1.4); ANISOCYTOSIS 1+; BAND NEUTROPHILS % (MANUAL) 1 % (3-5); BASOPHILS % (MANUAL) 0 % (0-2); EOSINOPHILS % (MANUAL) 1 % (0-6); LYMPHOCYTES % (MANUAL) 37 % (13-45); METAMYELOCYTES % (MANUAL) 2 % (0-1); MONOCYTES % (MANUAL) 9 % (3-13); PLATELET COMMENT ADEQUATE; POLYCHROMASIA SLIGHT; SEGMENTED NEUTROPHILS % (MAN) 50 % (42-78); TOTAL CELLS COUNTED 100
== END 2020-01-10 18:05 | disposition home or self-care (01) | DRG 177 ==
LOC: ER 03:45 → EH 11:33 → ICU 01-07 06:20 → 3N 01-07 15:03
PROVIDERS: ADMIT Internal Medicine; ATTEND Hospitalist
PROC: XW033E5 Introduction of Remdesivir Anti-infective into Peripheral Vein, Percutaneous Approach, New Technology Group 5 (ICD-10-PCS; principal; 2020-01-06)
PROC: XW13325 Transfusion of Convalescent Plasma (Nonautologous) into Peripheral Vein, Percutaneous Approach, New Technology Group 5 (ICD-10-PCS; 2020-01-06)
PROC: 3E02340 Introduction of Influenza Vaccine into Muscle, Percutaneous Approach (ICD-10-PCS; 2020-01-10)
DX: U07.1 COVID-19 (principal); J12.89 Other viral pneumonia; J44.0 Chronic obstructive pulmonary disease with (acute) lower respiratory infection; E11.65 Type 2 diabetes mellitus with hyperglycemia; E66.9 Obesity, unspecified; J44.9 Chronic obstructive pulmonary disease, unspecified; I11.0 Hypertensive heart disease with heart failure; I50.9 Heart failure, unspecified; E11.9 Type 2 diabetes mellitus without complications; E78.5 Hyperlipidemia, unspecified; K21.9 Gastro-esophageal reflux disease without esophagitis; F32.9 Major depressive disorder, single episode, unspecified; D64.9 Anemia, unspecified; Z90.710 Acquired absence of both cervix and uterus; Z88.0 Allergy status to penicillin; Z99.81 Dependence on supplemental oxygen; Z87.891 Personal history of nicotine dependence; Z23 Encounter for immunization; Z79.84 Long term (current) use of oral hypoglycemic drugs; Z79.899 Other long term (current) drug therapy
CPT/HCPCS: 36415; 36430; 36600; 71045; 71275; 80053; 80307; 81001; 82550; 82728; 82803; 82962; 83605; 83615; 83735; 83880; 84484; 85025; 85379; 85610; 86140; 86900; 86901; 87040; 87070; 87635; 87804; 87880; 90471; 90686; 93005; 93010; 94640; 96361; 96374; 96375; 99285; C9803; G0008; J0696; J1100; J1644; J1815; J1940; J2060; J2930; J3490; J7040; J7050

== ENCOUNTER 2020-02-16 06:33 | Observation (INO) | payer MEDICARE, OTHER ==
[2020-02-16 07:54] LABS: ABSOLUTE BASOPHILS # (AUTO) 0.1 10^3/uL (0.0-0.2); ABSOLUTE LYMPHOCYTES (AUTO) 1.3 10^3/uL (0.5-4.7); ABSOLUTE MONOCYTES (AUTO) 0.6 10^3/uL (0.1-1.4); ABSOLUTE NEUT (AUTO) 5.4 10^3/uL (1.7-8.2); BASOPHILS % (AUTO) 1.1 % (0-2); EOSINOPHILS % (AUTO) 0.3 % (0-6); HEMATOCRIT 29.7 % (36.0-47.0); HEMOGLOBIN 9.2 g/dL (12.0-15.5); MEAN CORPUSCULAR HEMOGLOBIN 21.6 pg (27.0-33.4); MEAN CORPUSCULAR HGB CONC 30.9 g/dL (32.0-36.0); MEAN CORPUSCULAR VOLUME 70 fl (80-97); PLATELET COUNT 229 10^3/uL (150-450); RED BLOOD COUNT 4.25 10^6/uL (3.72-5.28); RED CELL DISTRIBUTION WIDTH 17.3 % (11.5-14.0); SEGMENTED NEUTROPHILS % (AUTO) 72.6 % (42-78); TOTAL CELLS COUNTED % (AUTO) 100 %; WHITE BLOOD COUNT 7.4 10^3/uL (4.0-10.5)
--- NOTE | 2020-02-16 08:11 | RADIOLOGY REPORT (SQ) ---
EXAM DESCRIPTION: CHEST SINGLE VIEW IMAGES COMPLETED DATE/TIME: 02/16/2020 7:38 am REASON FOR STUDY: shortness of breath COMPARISON: 01/06/2020. EXAM PARAMETERS: NUMBER OF VIEWS: One view. TECHNIQUE: Single frontal radiographic view of the chest acquired. RADIATION DOSE: NA LIMITATIONS: None. FINDINGS: LUNGS AND PLEURA: No opacities, masses or pneumothorax. No pleural effusion. MEDIASTINUM AND HILAR STRUCTURES: No masses. Contour normal. HEART AND VASCULAR STRUCTURES: Cardiomegaly unchanged. Normal vasculature. BONES: No acute findings. HARDWARE: None in the chest. OTHER: No other significant finding. IMPRESSION: CARDIOMEGALY UNCHANGED. NO ACUTE RADIOGRAPHIC FINDING IN THE CHEST. TECHNICAL DOCUMENTATION: JOB ID: [id number] 2010 [employer]- All Rights Reserved Reading location - IP/workstation name: [email or web address]
[2020-02-16 08:13] LABS: ALBUMIN 4.3 g/dL (3.5-5.0); ALKALINE PHOSPHATASE 80 U/L (38-126); ANION GAP 13 (5-19); ASPARTATE AMINO TRANSFERASE 36 U/L (14-36); BILIRUBIN,DIRECT 0.1 mg/dL (0.0-0.4); BILIRUBIN,TOTAL 0.7 mg/dL (0.2-1.3); BLOOD UREA NITROGEN 17 mg/dL (7-20); CALCIUM 9.6 mg/dL (8.4-10.2); CARBON DIOXIDE 24 mmol/L (22-30); CHLORIDE 102 mmol/L (98-107); GLUCOSE 169 mg/dL (75-110); POTASSIUM 4.7 mmol/L (3.6-5.0); TOTAL PROTEIN 7.2 g/dL (6.3-8.2)
[2020-02-16] MEDS ORDERED: FUROSEMIDE INJ/PF 40 MG/4 ML SDV IV ONE (08:34)
[2020-02-16] MEDS ORDERED: MORPHINE SULFATE 10 MG/ML INJ IV ONE (08:34)
[2020-02-16] MEDS ORDERED: NITROGLYCERIN 2% OINTMENT 1 GM PACKET TP ONE (08:35)
[2020-02-16 09:46] LABS: ARTERIAL BLOOD BASE EXCESS -4.1 mmol/L; ARTERIAL BLOOD H2CO3 0.98 mmol/L (1.05-1.35); ARTERIAL BLOOD O2 SATURATION 97.7 % (94-98); ARTERIAL BLOOD PCO2 32.6 mmHg (35-45); ARTERIAL BLOOD PH 7.41 (7.35-7.45); ARTERIAL BLOOD PO2 100.4 mmHg (80-100)
[2020-02-16 09:47] LABS: ARTERIAL BLOOD FIO2 3L
[2020-02-16 09:55] LABS: INTERNATIONAL RATION (INR) 1.23; PROTHROMBIN TIME 15.7 SEC (11.4-15.4)
[2020-02-16 09:56] LABS: PARTIAL THROMBOPLASTIN TIME 33.3 SEC (23.5-35.8)
[2020-02-16] MEDS ORDERED: LISINOPRIL 10 MG TABLET PO ONE (10:16)
[2020-02-16 10:49] LABS: APPEARANCE,URINE SLIGHTLY-CLOUDY; BILIRUBIN,URINE NEGATIVE (NEGATIVE); COLOR,URINE YELLOW; GLUCOSE, URINE NEGATIVE (NEGATIVE); KETONES,URINE NEGATIVE (NEGATIVE); LEUKOCYTE ESTERASE,URINE SMALL (NEGATIVE); NITRITE,URINE NEGATIVE (NEGATIVE); PROTEIN,URINE >=500 mg/dL (NEGATIVE); UROBILINOGEN,URINE NEGATIVE mg/dL (<2.0)
--- NOTE | 2020-02-16 12:02 | RADIOLOGY REPORT (SQ) ---
EXAM DESCRIPTION: CTA CHEST IMAGES COMPLETED DATE/TIME: 02/16/2020 11:47 am REASON FOR STUDY: sobr/chf/elevated d dimer COMPARISON: 01/06/2020 TECHNIQUE: CT scan of the chest performed using helical scanning technique with dynamic intravenous contrast injection. Images reviewed with lung, soft tissue and bone windows. Reconstructed coronal and sagittal MPR images reviewed. Additional 3 dimensional post-processing performed to develop Maximal Intensity Projection images (PA P). All images stored on PACS. All CT scanners at this facility use dose modulation, iterative reconstruction, and/or weight based d osing when appropriate to reduce radiation dose to as low as reasonably achievable (ALARA). [facility]: Dose Right [facility]: CareDose [facility]: Dose Right [facility]: Teradose 4D [facility]: [employer] CONTRAST TYPE AND DOSE: 100 mL Isovue 370- low osmolar. Contrast bolus optimized for the pulmonary arteries. Not diagnostic for the aorta. RENAL FUNCTION: GFR > 60. RADIATION DOSE: CT Rad equipment meets quality standard of care and radiation dose reduction techniq ues were employed. CTDIvol: 9.9 - 22.9 mGy. DLP: 2765 mGy-cm. . LIMITATIONS: None. FINDINGS: LUNGS AND PLEURA: No pneumothorax. Increased interstitial and ground-glass opacities bila terally, right greater than left. Moderate bilateral Pleural effusions. AORTA AND GREAT VESSELS: No aneurysm. Contrast bolus not optimized for the aorta. HEART: No pericardial effusion. No significant coronary artery calcifications. PULMONARY ARTERIES: No emboli visualized in the main pulmonary arteries or the segmental branches. HILAR AND MEDIASTINAL STRUCTURES: Mildly enlarged mediastinal nodes. HARDWARE: None in the chest. UPPER ABDOMEN: No acute findings. Limited exam. THYROID AND OTHER SOFT TISSUES: No masses. No adenopathy. BONES: No acute or significant finding. 3D MIPS: Confirm above findings. OTHER: No other significant finding. IMPRESSION: Increased interstitial and ground-glass opacities bilaterally, right greater than left. Moderate bilateral Pleural effusions.Similar mildly enlarged mediastinal nodes. No emboli visualized in the main pulmonary arteries or the segmental branches. COMMENT: Quality ID # [id number]: Final reports with documentation of one or more dose reduction techniques (e.g., Automated exposure control, adjustment of the mA and/or kV according to patient size, use of iterative reconstruction technique) TECHNICAL DOCUMENTATION: JOB ID: [id number] [place]-72 2010 [email or web address]- All Rights Reserved Reading location - IP/workstation name: [email or web address]
--- NOTE | 2020-02-16 12:13 | RADIOLOGY REPORT (SQ) ---
EXAM DESCRIPTION: CT ABD/PELVIS WITH IV ONLY IMAGES COMPLETED DATE/TIME: 02/16/2020 11:47 am REASON FOR STUDY: chf/elevated d dimer/elevated lactic acid COMPARISON: 09/01/2014 TECHNIQUE: CT scan of the abdomen and pelvis performed using helical scanning technique with dynamic intravenous contrast injection. No oral contrast. Images reviewed with lung, soft tissue, and bone w indows. Reconstructed coronal and sagittal MPR images reviewed. Delayed images for evaluation of the urinary system also acquired. All images stored on PACS. All CT scanners at this facility use dose modulation, iterative reconstruction, and/or weight based d osing when appropriate to reduce radiation dose to as low as reasonably achievable (ALARA). [facility]: Dose Right [facility]: CareDose [facility]: Dose Right [facility]: Teradose 4D [facility]: [employer] CONTRAST TYPE AND DOSE: contrast/concentration: Isovue 350.00 mmol/ml; Total Contrast Delivered: 100 .0 ml; Total Saline Delivered: 75.0 ml RENAL FUNCTION: GFR > 60. RADIATION DOSE: . LIMITATIONS: None. FINDINGS: LOWER CHEST: Bilateral pleural effusions and bxanuc-ygggi-boskmdcgmbyi changes bilaterally . LIVER: Normal size. No enhancing masses. No dilated ducts. SPLEEN: Normal size. No focal lesions. PANCREAS: No masses identified. No significant calcifications. No adjacent inflammation or peripancre atic fluid collections. Pancreatic duct not dilated. GALLBLADDER: No calcified stones. No inflammatory changes to suggest cholecystitis. ADRENAL GLANDS: No significant masses. RIGHT KIDNEY AND URETER: No cysts identified. No solid masses identified. No calcified stones. No hyd ronephrosis or hydroureter. LEFT KIDNEY AND URETER: No cysts identified. No solid masses identified. No calcified stones. No hydr onephrosis or hydroureter. AORTA AND VESSELS: No aneurysm. No dissection. Renal arteries, SMA, celiac without significant stenos is. RETROPERITONEUM: No bulky retroperitoneal adenopathy. BOWEL AND PERITONEAL CAVITY: No obstruction or inflammatory changes. No free fluid. APPENDIX: Normal. PELVIS: Trace pelvic free fluid. Unremarkable bladder. ABDOMINAL WALL: No masses. No hernias. BONES: No acute findings. OTHER: No other significant finding. IMPRESSION: Trace pelvic free fluid, nonspecific. No other focal abnormality identified. TECHNICAL DOCUMENTATION: JOB ID: [id number] [place]-72 Quality ID # [id number]: Final reports with documentation of one or more dose reduction techniques (e.g., Au tomated exposure control, adjustment of the mA and/or kV according to patient size, use of iterative reconstruction technique) 2010 [employer]- All Rights Reserved Reading location - IP/workstation name: [email or web address]
--- NOTE | 2020-02-16 13:07 | ER Document Report ---
Entered by CIRA DOYLE SCRIBE 02/16/20 0828 Acting as scribe for:GENOVEVA CABRAL MD ED Respiratory Problem - General Chief Complaint: Shortness Of Breath Stated Complaint: SHORTNESS OF BREATH,DIFFICULTY BREATHING Time Seen by Provider: 02/16/20 07:42 Primary Care Provider: SHADIA LEUNG MD [Primary Care Provider] - Follow up as needed Information source: Patient Notes: This 59 year old female patient with history of HTN, CHF, asthma, and COPD, presents to the emergency department today with shortness of breath for the past x5 days. Patient states she is on 2L of O2 at home when her asthma flares up and has a albuterol inhaler. Patient states she was tested covid positive last month but has tested negative since. Patient reports a cough and denies chest pain. Per EMS, 125 mg solumedrol and albuterol neb x1 was administered en route, and patient was diaphoretic with wheezing on arrival. TRAVEL OUTSIDE OF THE [place] IN LAST 30 DAYS: No - Related Data Allergies/Adverse Reactions: amoxicillin Allergy (Verified 08/08/19 13:18) Home Medications: lisinopril. albuterol inhaler. seratine Past Medical History - General Information source: Patient - Social History Smoking Status: Never Smoker Cigarette use (# per day): No Chew tobacco use (# tins/day): No Frequency of alcohol use: None Drug Abuse: None Family History: Malignancy - Past Medical History Cardiac Medical History: Reports: Hx Congestive Heart Failure, Hx Hypercholesterolemia, Hx Hypertension Pulmonary Medical History: Reports: Hx Asthma, Hx Bronchitis, Hx COPD, Hx Pneumonia, Hx Sleep Apnea Endocrine Medical History: Reports: Hx Diabetes Mellitus Type 2 Renal/ Medical History: Denies: Hx Peritoneal Dialysis GI Medical History: Reports: Hx Gastroesophageal Reflux Disease, Hx Irritable Bowel Psychiatric Medical History: Reports: Hx Depression Past Surgical History: Reports: Hx Hysterectomy, Hx Orthopedic Surgery - Left knee repair - Immunizations Hx Diphtheria, Pertussis, Tetanus Vaccination: No Hx Pneumococcal Vaccination: 03/28/12 Review of Systems - Review of Systems Constitutional: See HPI, Diaphoresis, Recent illness EENT: No symptoms reported Cardiovascular: See HPI. denies: Chest pain Respiratory: See HPI, Cough, Short of breath, Wheezing Gastrointestinal: No symptoms reported Genitourinary: No symptoms reported Female Genitourinary: No symptoms reported Musculoskeletal: No symptoms reported Skin: No symptoms reported Hematologic/Lymphatic: No symptoms reported Neurological/Psychological: No symptoms reported -: Yes All other systems reviewed and negative Physical Exam - Vital signs Vitals: BP 151/101 H 02/16/20 06:38 - General General appearance: Alert - HEENT Head: Normocephalic, Atraumatic Eyes: Normal Pupils: PERRL - Respiratory Notes: Increased work of breathing. Tachypnea. Expiratory wheeze. Diminished breath sounds bilaterally. - Cardiovascular Rhythm: Regular Heart sounds: Normal auscultation Murmur: No - Abdominal Inspection: Normal Distension: No distension Bowel sounds: Normal Tenderness: Nontender - Extremities General upper extremity: Normal inspection, Normal ROM General lower extremity: Normal inspection, Normal ROM. No: Edema - Neurological Neuro grossly intact: Yes Cognition: Normal Orientation: AAOx4 James Coma Scale Eye Opening: Spontaneous [place] Coma Scale Verbal: Oriented James Coma Scale Motor: Obeys Commands [place] Coma Scale Total: 15 Speech: Normal Sensory: Normal - Psychological Associated symptoms: Normal affect, Normal mood - Skin Skin Temperature: Warm Skin Moisture: Diaphoretic Skin Color: Normal Course - Re-evaluation Re-evalutation: 02/16/20 12:59 Patient resting on 2 L nasal O2 less tachypneic and less work of breathing at this time. - Vital Signs Vital signs: Temp Pulse Resp BP Pulse Ox 98.2 F 23 H 157/94 H 96 02/16/20 08:34 02/16/20 11:10 02/16/20 11:10 02/16/20 10:00 02/16/20 13:00 Respiratory rate 23 sats 96% on 2 L blood pressure is 157/94 afebrile. - Laboratory Result Diagrams: 02/16/20 07:40 02/16/20 07:40 Laboratory results interpreted by me: 02/16/20 02/16/20 02/16/20 07:40 07:40 07:40 Hgb 9.2 L Hct 29.7 L MCV 70 L MCH 21.6 L MCHC 30.9 L RDW 17.3 H PT D-Dimer Carbonic Acid ABG pCO2 ABG pO2 Glucose 169 H Lactic Acid Creatine Kinase 275 H NT-Pro-B Natriuret Pep Urine Protein Urine Blood Ur Leukocyte Esterase 02/16/20 02/16/20 02/16/20 07:40 09:20 09:32 Hgb Hct MCV MCH MCHC RDW PT 15.7 H D-Dimer 5.30 H Carbonic Acid 0.98 L ABG pCO2 32.6 L ABG pO2 100.4 H Glucose Lactic Acid Creatine Kinase NT-Pro-B Natriuret Pep 6750 H Urine Protein Urine Blood Ur Leukocyte Esterase 02/16/20 02/16/20 09:32 10:10 Hgb Hct MCV MCH MCHC RDW PT D-Dimer Carbonic Acid ABG pCO2 ABG pO2 Glucose Lactic Acid 3.8 H Creatine Kinase NT-Pro-B Natriuret Pep Urine Protein >=500 H Urine Blood SMALL H Ur Leukocyte Esterase SMALL H 02/16/20 13:00 Laboratories show a BNP of 6750 D-dimer 5.3 H&H stable 9 and 29 lactic acid came back elevated at 3.8 02/16/20 13:01 Unable to explain why patient is lactic acid was 3.8 illnesses based on patient was hypoxic prior to arrival to the emergency department and there is no evidence for infection or intra-abdominal disease at this time. Patient has a normal white blood cell count she is afebrile denied any coughing fever chills patient was sweating on arrival but it was most likely due to her work of breathing. Patient has had a work-up including CT scan angiogram of chest not showing any pulmonary emboli groundglass appearance on chest x-ray in a patient who has positive COVID-19 pneumonia 1 month ago. Patient reports that she has been tested since and has been negative. Abdominal pelvis CT with contrast does not disclose any acute process. 02/16/20 13:01 - Diagnostic Test Radiology reviewed: Image reviewed, Reports reviewed Radiology results interpreted by me: 02/16/20 13:03 Chest X-Ray 02/16/20 07:27 IMPRESSION: CARDIOMEGALY UNCHANGED. NO ACUTE RADIOGRAPHIC FINDING IN THE CHEST. Chest/Abdomen CTA 02/16/20 10:13 IMPRESSION: Increased interstitial and ground-glass opacities bilaterally, right greater than left. Moderate bilateral Pleural effusions.Similar mildly enlarged mediastinal nodes. No emboli visualized in the main pulmonary arteries or the segmental branches. Abdomen/Pelvis CT 02/16/20 10:14 IMPRESSION: Trace pelvic free fluid, nonspecific. No other focal abnormality identified. Chest x-ray shows cardiomegaly unchanged no acute radiographic finding on chest. Chest abdomen CTA increased markings groundglass opacities bilateral moderate bilateral pleural effusions similar mildly enlarged mediastinal nodes. No emboli visualized on pulmonary arteries or segmental branches. Abdominal pelvis CT showed trace pelvic free fluid, nonspecific; otherwise no acute process - EKG Interpretation by Me Additional EKG results interpreted by me: 02/16/20 13:05 Twelve-lead EKG shows sinus tachycardia rate of 105 with left ventricular hypertrophy voltage criteria. Borderline prolonged QT interval. GA interval and QRS interval within normal range normal axis no acute ST elevation to suggest a STEMI. Discharge - Discharge Clinical Impression: Shortness of breath, Chronic obstructive pulmonary disease, HTN (hypertension), Congestive heart failure Condition: Good Disposition: ADMITTED INPATIENT Admitting Provider: Kirill (Hospitalist) Unit Admitted: Telemetry Referrals: SHADIA LEUNG MD [Primary Care Provider] - Follow up as needed I personally performed the services described in the documentation, reviewed and edited the documentation which was dictated to the scribe in my presence, and it accurately records my words and actions.
[2020-02-16] MEDS ORDERED: TEMAZEPAM 7.5 MG CAPSULE PO PRN (14:39)
[2020-02-16] MEDS ORDERED: ALBUTEROL SULFATE 0.083% NEB 2.5 MG/3 ML AMPUL NEB PRN (14:39)
[2020-02-16] MEDS ORDERED: ACETAMINOPHEN 325 MG TABLET PO PRN (14:39)
[2020-02-16] MEDS ORDERED: ONDANSETRON HCL INJ/PF 4 MG/2 ML SDV IV PRN (14:39)
[2020-02-16] MEDS ORDERED: MAG HYDROX/AL HYDROX/SIMETH SUSP 30 ML UDCUP PO PRN (14:39)
[2020-02-16] MEDS ORDERED: HYDROXYZINE HCL 2 MG/ML SYRUP 60 ML PO PRN (14:46)
[2020-02-16] MEDS ORDERED: OXYCODONE HCL IR 5 MG TABLET PO PRN (14:46)
[2020-02-16] MEDS ORDERED: LORAZEPAM 1 MG TABLET PO PRN (14:46)
[2020-02-16] MEDS ORDERED: DEXTROSE 40% GEL 15 GM TUBE PO PRN ×2 (14:52)
[2020-02-16] MEDS ORDERED: GLUCAGON,HUMAN RECOMB 1 MG INJ IM PRN (14:52)
[2020-02-16] MEDS ORDERED: DEXTROSE 50%-WATER 25 GM/50 ML DISP.SYRIN IV PRN ×2 (14:52)
[2020-02-16] MEDS ORDERED: HYDROXYZINE HCL 10 MG TABLET PO PRN (14:54)
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
--- NOTE | 2020-02-16 15:28 | ADVANCED CARE ---
- Diagnosis (1) Acute on chronic congestive heart failure Diagnosis Current: Yes (5) Shortness of breath Diagnosis Current: Yes Resuscitation Status: Full Code Discussion: I discussed patient's current issues with her plan. Also discussed CODE STATUS with her and explained elaborately. Patient would like to be a full code but does specify, even after vivid explanation, that in the case of cardiac arrest, she does NOT WANT TO UNDERGO PROLONGED CPR. After further discussed, she indicates that if she is not resuscitated after about 8 minutes to stop CPR. Otherwise wants full treatment for her medical conditions. Time Spent: 18mins
[2020-02-16 15:58] LABS: A TYPE INFLUENZA AG NEGATIVE (NEGATIVE); B INFLUENZA AG NEGATIVE (NEGATIVE)
[2020-02-16] MEDS: IPRATROPIUM/ALBUTEROL 0.5-2.5 MG/3 ML AMPUL NEB SCH (16:41)
[2020-02-16] MEDS: INSULIN LISPRO 100 UNIT/ML 3 ML VIAL SUBCUT SCH ×2 (16:46→22:03)
[2020-02-16] MEDS: ENOXAPARIN SODIUM INJ 40 MG/0.4 ML DISP.SYRIN SUBCUT SCH (16:47)
[2020-02-16] MEDS: FUROSEMIDE INJ/PF 100 MG/10 ML SDV IV SCH (17:19)
[2020-02-16] MEDS: FLUTICASONE NASAL SPRAY 50 MCG/SPRY 120 SPRAY/16 GM NASL SCH (17:20)
[2020-02-16] MEDS ORDERED: FUROSEMIDE INJ/PF 40 MG/4 ML SDV IV SCH (18:00)
[2020-02-16] MEDS ORDERED: MONTELUKAST SODIUM 10 MG TABLET PO SCH (18:00)
--- NOTE | 2020-02-16 19:44 | EKG REPORT ---
SEVERITY:- ABNORMAL ECG - SINUS TACHYCARDIA CONSIDER LEFT VENTRICULAR HYPERTROPHY BORDERLINE PROLONGED QT INTERVAL : Confirmed by: Hilda Leyva MD 16-Feb-2020 19:43:57
--- NOTE | 2020-02-16 20:03 | RADIOLOGY REPORT (SQ) ---
EXAM DESCRIPTION: VENOUS BILATERAL LOWER IMAGES COMPLETED DATE/TIME: 02/16/2020 7:34 pm REASON FOR STUDY: very high d dimer COMPARISON: None. TECHNIQUE: Dynamic and static morejon scale and color images acquired of both lower extremity venous sy stems. Selected spectral images acquired with additional compression and augmentation maneuvers. Imag es stored on PACS. LIMITATIONS: None. FINDINGS: RIGHT LEG COMMON FEMORAL AND FEMORAL: Normal phasicity, compression and augmentation. No visualized echogenic m aterial on morejon scale. No defects on color images. POPLITEAL: Normal compression and augmentation. No visualized echogenic material on morejon scale. No de fects on color images. CALF VESSELS: Normal compression and augmentation. No visualized echogenic material on morejon scale. No defects on color image. GSV AND SSV: Normal compression. No visualized echogenic material on morejon scale. No defects on color images. ANY DEEP VENOUS INSUFFICIENCY: Not evaluated. ANY EVIDENCE OF POPLITEAL CYST: No. OTHER: No other significant finding. LEFT LEG COMMON FEMORAL AND FEMORAL: Normal phasicity, compression and augmentation. No visualized echogenic m aterial on morejon scale. No defects on color images. POPLITEAL: Normal compression and augmentation. No visualized echogenic material on morejon scale. No de fects on color images. CALF VESSELS: Normal compression and augmentation. No visualized echogenic material on morejon scale. No defects on color images. GSV AND SSV: Normal compression. No visualized echogenic material on morejon scale. No defects on color images. ANY DEEP VENOUS INSUFFICIENCY: Not evaluated. ANY EVIDENCE POPLITEAL CYST: No. OTHER: No other significant finding. IMPRESSION: NO EVIDENCE DVT OR SVT IN EITHER LEG. TECHNICAL DOCUMENTATION: JOB ID: [id number] [employer]- All Rights Reserved Reading location - IP/workstation name: [email or web address]
[2020-02-16] MEDS ORDERED: SIMVASTATIN 40 MG TABLET PO SCH (22:00)
[2020-02-16] MEDS ORDERED: SIMVASTATIN 10 MG TABLET PO SCH (22:00)
[2020-02-16] MEDS ORDERED: INSULIN GLARGINE,HUM.REC.ANLOG 1,000 UNIT/10 ML VIAL SUBCUT SCH (22:00)
[2020-02-16] MEDS: PREGABALIN 75 MG CAPSULE PO SCH (22:16)
[2020-02-16] MEDS: VENLAFAXINE HCL 75 MG TABLET PO SCH (22:16)
[2020-02-16] MEDS ORDERED: INSULIN GLARGINE,HUM.REC.ANLOG 1,000 UNIT/10 ML VIAL (PYX) SUBCUT ONE (22:18)
[2020-02-17] MEDS ORDERED: INSULIN LISPRO 100 UNIT/ML 3 ML VIAL SUBCUT ONE (00:30)
[2020-02-17] MEDS: IPRATROPIUM/ALBUTEROL 0.5-2.5 MG/3 ML AMPUL NEB SCH ×2 (00:34→08:28)
[2020-02-17 05:08] LABS: HEMATOCRIT 29.6 % (36.0-47.0); HEMOGLOBIN 9.5 g/dL (12.0-15.5); MEAN CORPUSCULAR HEMOGLOBIN 21.6 pg (27.0-33.4); MEAN CORPUSCULAR VOLUME 68 fl (80-97); PLATELET COUNT 265 10^3/uL (150-450); RED BLOOD COUNT 4.38 10^6/uL (3.72-5.28); RED CELL DISTRIBUTION WIDTH 17.5 % (11.5-14.0); WHITE BLOOD COUNT 8.6 10^3/uL (4.0-10.5)
[2020-02-17 05:36] LABS: ANION GAP 15 (5-19); BLOOD UREA NITROGEN 27 mg/dL (7-20); CALCIUM 9.6 mg/dL (8.4-10.2); CARBON DIOXIDE 26 mmol/L (22-30); CHLORIDE 97 mmol/L (98-107); GLUCOSE 118 mg/dL (75-110); POTASSIUM 4.3 mmol/L (3.6-5.0)
[2020-02-17] MEDS ORDERED: PANTOPRAZOLE SODIUM 40 MG TABLET.DR PO SCH (06:00)
[2020-02-17] MEDS: INSULIN LISPRO 100 UNIT/ML 3 ML VIAL SUBCUT SCH ×3 (08:45→16:17)
[2020-02-17] MEDS ORDERED: ASPIRIN 81 MG TABLET, ENT COATED PO SCH (10:00)
[2020-02-17] MEDS ORDERED: CETIRIZINE 10 MG TABLET PO SCH (10:00)
[2020-02-17] MEDS ORDERED: LISINOPRIL 10 MG TABLET PO SCH (10:00)
[2020-02-17] MEDS ORDERED: FLUTICASONE/VILANTEROL 200-25 MCG/DOSE IH SCH (10:00)
[2020-02-17] MEDS: ENOXAPARIN SODIUM INJ 40 MG/0.4 ML DISP.SYRIN SUBCUT SCH (11:50)
[2020-02-17] MEDS: PREGABALIN 75 MG CAPSULE PO SCH (11:50)
[2020-02-17] MEDS: FUROSEMIDE INJ/PF 100 MG/10 ML SDV IV SCH (11:51)
[2020-02-17] MEDS: FLUTICASONE NASAL SPRAY 50 MCG/SPRY 120 SPRAY/16 GM NASL SCH (11:53)
[2020-02-17] MEDS: VENLAFAXINE HCL 75 MG TABLET PO SCH (11:55)
[2020-02-17 13:03] VITALS: BP 124/62
[2020-02-17] MEDS ORDERED: INSULIN NPH (ISOPHANE), HUMAN 100 UNIT/ML 3 ML SUBCUT ONE (14:00)
--- NOTE | 2020-02-17 15:18 | PDOC DISCHARGE SUMMARY ---
Impression - Admit/DC Date/PCP Admission Date/Primary Care Provider: 02/16/20 13:19 SHADIA LEUNG MD Discharge Date: 02/17/20 - Discharge Diagnosis (1) Acute on chronic congestive heart failure Is this a current diagnosis for this admission?: Yes (2) Lactic acidosis Is this a current diagnosis for this admission?: Yes (3) Elevated d-dimer Is this a current diagnosis for this admission?: Yes (4) Chronic obstructive pulmonary disease Is this a current diagnosis for this admission?: Yes (5) Shortness of breath Is this a current diagnosis for this admission?: Yes (6) Diabetes Is this a current diagnosis for this admission?: Yes (7) Obesity (BMI 30.0-34.9) Is this a current diagnosis for this admission?: Yes - Additional Information Resuscitation Status: Full Code Discharge Diet: Cardiac, Diabetic Discharge Activity: Activity As Tolerated Referrals: SHADIA LEUNG MD [Primary Care Provider] - Follow up as needed Prescriptions: Cefdinir 300 mg PO Q12 7 Days #14 capsule Furosemide [Lasix 40 mg Tablet] 40 mg PO BID #40 Aspirin [Lo-Dose Aspirin EC] 81 mg PO DAILY #30 tablet. Home Medications: Cetirizine HCl [Allergy] 10 mg PO DAILY 06/06/15 Esomeprazole Magnesium [Nexium] 40 mg PO BID 06/06/15 Hydroxyzine HCl [Atarax 25 mg Tablet] 25 mg PO TIDP PRN 06/06/15 Lisinopril 20 mg PO DAILY 06/06/15 Pregabalin [Lyrica] 150 mg PO DAILY 06/06/15 Simvastatin 20 mg PO QPM 06/06/15 Tramadol HCl 50 mg PO Q8HP PRN 06/06/15 Venlafaxine HCl [Venlafaxine HCl ER] 300 mg PO DAILY 06/06/15 Estradiol [Estrace] 2 mg PO DAILY 01/06/20 Fluticasone/Vilanterol [Breo 200-25 Mcg Ellipta 14 Dose/Dpi] 1 inh IH DAILY 01/06/20 Lorazepam [Ativan 1 mg Tablet] 1 mg PO BIDP PRN 01/06/20 Montelukast Sodium [Singulair 10 mg Tablet] 10 mg PO QPM 01/06/20 Fexofenadine HCl [Allergy Relief] 180 mg PO DAILY 02/16/20 Fluticasone Propionate [Flonase Nasal [place] 50 Mcg/[place] 16 gm] 1 spray NASL BID 02/16/20 Oxycodone HCl [Oxy-Ir 5 mg Tablet] 5 mg PO Q4HP PRN 02/16/20 Aspirin [Lo-Dose Aspirin EC] 81 mg PO DAILY #30 tablet. 02/17/20 Cefdinir 300 mg PO Q12 7 Days #14 capsule 02/17/20 Furosemide [Lasix 40 mg Tablet] 40 mg PO BID #40 02/17/20 Metformin HCl [Glucophage 500 mg Tablet] 500 mg PO BID #0 02/17/20 History of Present Illiness History of Present Illness: CAMILLE MORALES is a 59 year old female with history of CHF, asthma/COPD, 2 L oxygen baseline, recent COVID-19 infection, who presents to the hospital for evaluation of shortness of breath and cough. Patient was admitted about a month and a half ago for COVID-19 pneumonia. She did well and was discharged. She states that she has been doing very well since then until 5 days ago. On Tuesday, she started to experience increased shortness of breath and cough. Her cough is productive of whitish sputum. She states she feels it coincided with the weather change. She also had some diaphoresis. She has chronic orthopnea uses 4 pillows to sleep. She has been increasingly experiencing PND. She also states she has noted herself wheezing. Her shortness of breath became progressive. She has experienced some chest tightness intermittently in the past week. She denies any peripheral edema. In the ER, she did receive Lasix IV after which she had a significant amount of urine output according to her and felt a lot better. She has been taking her Lasix 40 mg daily at home but had stopped about 8 days ago. 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 Hospital Course Hospital Course: (1) Acute on chronic congestive heart failure Qualifiers: Heart failure type: unspecified Qualified Code(s): I50.9 - Heart failure, unspecified Is this a current diagnosis for this admission?: Yes Plan: EF undetermined. She states she has been doing a poor job with her fluid restriction. 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 Being discharged on Lasix 40 mg twice a day which is double of her prior regimen. She will be set up with follow-up appointment with her primary care provider to check renal function this week. (2) Lactic acidosis Is this a current diagnosis for this admission?: Yes Plan: Not hypoxic, not hypovolemic and not hypovolemic. May be secondary to her acute shortness of breath. May also be secondary to her Metformin use. Subsequently resolved without needing any IV fluids. I have instructed her to cut her Metformin dose to half. (3) Elevated d-dimer Is this a current diagnosis for this admission?: Yes Plan: She has very high D-dimer over 5. CTA is negative for PE. Venous Dopplers were negative for DVT. I did start her on a baby aspirin for her increased cardiovascular risk. D-dimer did improve after diuresis. It is possible the D-dimer may be due to congestive heart failure. However have also given her 7-day course of cefdinir in case there is an underlying pneumonia. (4) Chronic obstructive pulmonary disease Qualifiers: COPD type: unspecified COPD Qualified Code(s): J44.9 - Chronic obstructive pulmonary disease, unspecified Is this a current diagnosis for this admission?: Yes Plan: Not in acute exacerbation. Continued home meds. She uses 2 L nasal cannula at home (5) Shortness of breath Is this a current diagnosis for this admission?: Yes Plan: I believe this is more CHF exacerbation. Plan as above. She has not been hypoxic and actually satting well on room air. 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: unspecified alf insulin use status Diabetes mellitus complication status: with neurologic complications Diabetes mellitus complication detail: with polyneuropathy Qualified Code(s): E11.42 - Type 2 diabetes mellitus with diabetic polyneuropathy Is this a current diagnosis for this admission?: Yes Plan: (7) Obesity (BMI 30.0-34.9) Is this a current diagnosis for this admission?: Yes Plan: Dietary counseling Also patient is on a lot of sedating medications at home and I have discussed with her about discussing with her primary care provider regarding stopping some of the sedating meds Physical Exam Vital Signs: Temp Pulse Resp BP Pulse Ox 97.7 F 93 18 124/62 97 02/17/20 11:10 02/17/20 14:00 02/17/20 11:10 02/17/20 11:10 02/17/20 11:10 Intake & Output 02/16/20 02/17/20 02/18/20 06:59 06:59 06:59 Intake Total 380 Balance 380 Weight 80.4 kg 82.4 kg General appearance: PRESENT: no acute distress, cooperative Neck exam: ABSENT: JVD Respiratory exam: PRESENT: clear to auscultation nayana, symmetrical, unlabored. ABSENT: tachypnea, wheezes Cardiovascular exam: PRESENT: RRR, +S1, +S2. ABSENT: tachycardia Neurological exam: PRESENT: alert, awake, oriented to person, oriented to place, oriented to time Results Laboratory Results: WBC 8.6 10^3/uL (4.0-10.5) 02/17/20 04:55 RBC 4.38 10^6/uL (3.72-5.28) 02/17/20 04:55 Hgb 9.5 g/dL (12.0-15.5) L 02/17/20 04:55 Hct 29.6 % (36.0-47.0) L 02/17/20 04:55 MCV 68 fl (80-97) L 02/17/20 04:55 MCH 21.6 pg (27.0-33.4) L 02/17/20 04:55 MCHC 32.0 g/dL (32.0-36.0) 02/17/20 04:55 RDW 17.5 % (11.5-14.0) H 02/17/20 04:55 Plt Count 265 10^3/uL (150-450) 02/17/20 04:55 Lymph % (Auto) 18.0 % (13-45) 02/16/20 07:40 [place] % (Auto) 8.0 % (3-13) 02/16/20 07:40 Eos % (Auto) 0.3 % (0-6) 02/16/20 07:40 Baso % (Auto) 1.1 % (0-2) 02/16/20 07:40 Absolute Neuts (auto) 5.4 10^3/uL (1.7-8.2) 02/16/20 07:40 Absolute Lymphs (auto) 1.3 10^3/uL (0.5-4.7) 02/16/20 07:40 Absolute Monos (auto) 0.6 10^3/uL (0.1-1.4) 02/16/20 07:40 Absolute Eos (auto) 0.0 10^3/uL (0.0-0.6) 02/16/20 07:40 Absolute Basos (auto) 0.1 10^3/uL (0.0-0.2) 02/16/20 07:40 Seg Neutrophils % 72.6 % (42-78) 02/16/20 07:40 PT 15.7 SEC (11.4-15.4) H 02/16/20 09:32 INR 1.23 02/16/20 09:32 APTT 33.3 SEC (23.5-35.8) 02/16/20 09:32 D-Dimer 2.69 ug/mL (0.00-0.50) H 02/17/20 04:55 Carbonic Acid 0.98 mmol/L (1.05-1.35) L 02/16/20 09:20 HCO3/H2CO3 Ratio 20:1 02/16/20 09:20 ABG pH 7.41 (7.35-7.45) 02/16/20 09:20 ABG pCO2 32.6 mmHg (35-45) L 02/16/20 09:20 ABG pO2 100.4 mmHg (80-100) H 02/16/20 09:20 ABG HCO3 20.0 mmol/L (20-24) 02/16/20 09:20 ABG Total CO2 21.0 mmol/L (21-25) 02/16/20 09:20 ABG O2 Saturation 97.7 % (94-98) 02/16/20 09:20 ABG Base Excess -4.1 mmol/L 02/16/20 09:20 FiO2 3L 02/16/20 09:20 Sodium 137.9 mmol/L (137-145) 02/17/20 04:55 Potassium 4.3 mmol/L (3.6-5.0) 02/17/20 04:55 Chloride 97 mmol/L (98-107) L 02/17/20 04:55 Carbon Dioxide 26 mmol/L (22-30) 02/17/20 04:55 Anion Gap 15 (5-19) 02/17/20 04:55 BUN 27 mg/dL (7-20) H 02/17/20 04:55 Creatinine 0.96 mg/dL (0.52-1.25) 02/17/20 04:55 Est GFR ( Amer) > 60 (>60) 02/17/20 04:55 Est GFR (MDRD) Non-Af 59 (>60) L 02/17/20 04:55 Glucose 118 mg/dL (75-110) H 02/17/20 04:55 POC Glucose 370 mg/dL (70-110) H 02/17/20 10:18 Hemoglobin A1c % 7.5 % (4.7-6.0) H 02/17/20 04:55 Lactic Acid 2.1 mmol/L (0.7-2.1) 02/17/20 04:55 Calcium 9.6 mg/dL (8.4-10.2) 02/17/20 04:55 Magnesium 1.9 mg/dL (1.6-2.3) 02/17/20 04:55 Total Bilirubin 0.7 mg/dL (0.2-1.3) 02/16/20 07:40 Direct Bilirubin 0.1 mg/dL (0.0-0.4) 02/16/20 07:40 Neonat Total Bilirubin Not Reportable 02/16/20 07:40 Neonat Direct Bilirubin Not Reportable 02/16/20 07:40 Neonat Indirect Bili Not Reportable 02/16/20 07:40 AST 36 U/L (14-36) 02/16/20 07:40 ALT 30 U/L (<35) 02/16/20 07:40 Alkaline Phosphatase 80 U/L (38-126) 02/16/20 07:40 Creatine Kinase 275 U/L (30-135) H 02/16/20 07:40 Troponin I 0.033 ng/mL 02/16/20 11:16 NT-Pro-B Natriuret Pep 6750 pg/mL (<125) H 02/16/20 07:40 Total Protein 7.2 g/dL (6.3-8.2) 02/16/20 07:40 Albumin 4.3 g/dL (3.5-5.0) 02/16/20 07:40 Lipase 212.2 U/L (23-300) 02/16/20 07:40 Urine Color YELLOW 02/16/20 10:10 Urine Appearance SLIGHTLY-CLOUDY 02/16/20 10:10 Urine pH 5.0 (5.0-9.0) 02/16/20 10:10 Ur Specific [place] 1.010 02/16/20 10:10 Urine Protein >=500 mg/dL (NEGATIVE) H 02/16/20 10:10 Urine Glucose (UA) NEGATIVE mg/dL (NEGATIVE) 02/16/20 10:10 Urine Ketones NEGATIVE mg/dL (NEGATIVE) 02/16/20 10:10 Urine Blood SMALL (NEGATIVE) H 02/16/20 10:10 Urine Nitrite NEGATIVE (NEGATIVE) 02/16/20 10:10 Urine Bilirubin NEGATIVE (NEGATIVE) 02/16/20 10:10 Urine Urobilinogen NEGATIVE mg/dL (<2.0) 02/16/20 10:10 Ur Leukocyte Esterase SMALL (NEGATIVE) H 02/16/20 10:10 Urine WBC (Auto) 2 /HPF 02/16/20 10:10 Urine RBC (Auto) 1 /HPF 02/16/20 10:10 U Hyaline Cast (Auto) 1 /LPF 02/16/20 10:10 Urine Bacteria (Auto) TRACE /HPF 02/16/20 10:10 Squamous Epi Cells Auto 2 /HPF 02/16/20 10:10 Urine Mucus (Auto) RARE /LPF 02/16/20 10:10 Urine Ascorbic Acid NEGATIVE (NEGATIVE) 02/16/20 10:10 Influenza A (Rapid) NEGATIVE (NEGATIVE) 02/16/20 15:30 Influenza B (Rapid) NEGATIVE (NEGATIVE) 02/16/20 15:30 02/16/20 02/16/20 02/16/20 07:40 07:40 11:16 Troponin I 0.042 0.033 NT-Pro-B Natriuret Pep 6750 H Impressions: Venous Doppler Study 02/16/20 00:00 IMPRESSION: NO EVIDENCE DVT OR SVT IN EITHER LEG. Chest X-Ray 02/16/20 07:27 IMPRESSION: CARDIOMEGALY UNCHANGED. NO ACUTE RADIOGRAPHIC FINDING IN THE CHEST. Chest/Abdomen CTA 02/16/20 10:13 IMPRESSION: Increased interstitial and ground-glass opacities bilaterally, right greater than left. Moderate bilateral Pleural effusions.Similar mildly enlarged mediastinal nodes. No emboli visualized in the main pulmonary arteries or the segmental branches. Abdomen/Pelvis CT 02/16/20 10:14 IMPRESSION: Trace pelvic free fluid, nonspecific. No other focal abnormality identified. Plan Time Spent: Greater than 30 Minutes Stroke Is this a Stroke Patient?: No Acute Heart Failure Is this a Heart Failure Patient?: Yes Documentation of LVEF assessment?: Planned for after discharge LVEF: LVEF Greater Than 40% Anticoagulant Therapy: N/A Follow-up Appointment scheduled within 7 days?: Yes
--- NOTE | 2020-02-17 18:59 | EKG REPORT ---
SEVERITY:- ABNORMAL ECG - SINUS RHYTHM LEFT VENTRICULAR HYPERTROPHY ABNORMAL T, CONSIDER ISCHEMIA, LATERAL LEADS BORDERLINE PROLONGED QT INTERVAL : Confirmed by: Hilda Leyva MD 17-Feb-2020 18:58:27
== END 2020-02-17 16:15 | disposition home or self-care (01) ==
LOC: ER 06:33 → EH 13:19 → INTOOBSV 13:19 → 4N 14:23
PROVIDERS: ADMIT Internal Medicine; ATTEND Internal Medicine
DX: I11.0 Hypertensive heart disease with heart failure (principal); I50.9 Heart failure, unspecified; E87.2 Acidosis; R79.89 Other specified abnormal findings of blood chemistry; J44.9 Chronic obstructive pulmonary disease, unspecified; R06.02 Shortness of breath; R06.01 Orthopnea; R05 Cough; E11.42 Type 2 diabetes mellitus with diabetic polyneuropathy; E66.9 Obesity, unspecified; J90 Pleural effusion, not elsewhere classified; Z99.81 Dependence on supplemental oxygen; Z79.84 Long term (current) use of oral hypoglycemic drugs; Z79.899 Other long term (current) drug therapy
CPT/HCPCS: 93005 ×2; 99285; 96374; 96375; 36415 ×2; 87040; 82962 ×2; 82803; 82550; 83605 ×2; 83690; 83735 ×2; 85025; 85027; 85610; 85730; 80048; 80053; 81001; 84484; 83036; 85379 ×2; 87804; 83880; 93970; 71045; 71275; 74177; 93010 ×2; 94640 ×2; G0378 ×2; J1940 ×3; J1815 ×3; J2270; J1650 ×2; J3490 ×3